=== PATIENT | female | born 1960 | race Caucasian/White ===

== ENCOUNTER 2019-10-20 17:19 | Inpatient (IN) | payer SELFPAY ==
[~2019-10-20] VITALS: Ht 160 cm; Wt 114.6 kg
[~2019-10-20 17:19] MED LIST: FERR-36 PO
[2019-10-20 19:39] LABS: BASO # 0.1 x10^3/uL (0.0-0.2); BASO % 1 % (0-3); EOS # 0.4 x10^3/uL (0.0-0.7); EOS % 4 % (0-3); HEMATOCRIT 38.6 % (36.0-47.0); HEMOGLOBIN 12.5 g/dL (12.0-15.5); LYMPH # 1.3 x10^3/uL (1.0-4.8); LYMPH % 12 % (24-48); MEAN CORPUSCULAR HEMOGLOBIN 25 pg (25-35); MEAN CORPUSCULAR HGB CONC 32 g/dL (31-37); MEAN CORPUSCULAR VOLUME 78 fL (79-100); MONO # 0.6 x10^3/uL (0.0-1.1); MONO % 6 % (0-9); NEUT # 8.4 x10^3/uL (1.8-7.7); NEUT % 78 % (31-73); PLATELET COUNT 283 x10^3/uL (140-400); RED BLOOD COUNT 4.93 x10^6/uL (3.50-5.40); RED CELL DISTRIBUTION WIDTH 17.1 % (11.5-14.5); WHITE BLOOD COUNT 10.8 x10^3/uL (4.0-11.0)
[2019-10-20 19:48] LABS: PROTHROMBIN TIME PATIENT 12.7 SEC (11.7-14.0)
--- NOTE | 2019-10-20 20:05 | RAD ---
CT HEAD WO CONTRAST History:Altered mental status Comparison: None. Technique: Noncontrast CT imaging was performed of the head. Exposure: One or more of the following individualized dose reduction techniques were utilized for this examination: 1. Automated exposure control 2. Adjustment of the mA and/or kV according to patient size 3. Use of iterative reconstruction technique. Findings: No acute extra-axial or parenchymal hemorrhage is identified. There is no significant intra-axial mass effect, midline shift, or extra-axial fluid collection. The boone-white differentiation of the major vascular territories is preserved. The ventricles, sulci, and cisterns are within normal limits in size and configuration. The mastoid air cells and the visualized paranasal sinuses are aerated. No acute calvarial abnormality is identified. Impression: 1. No acute intracranial abnormality is identified. Electronically signed by: Ko Messer MD (10/20/2019 8:03 PM) [facility]
[2019-10-20 20:22] LABS: CALCIUM 9.1 mg/dL (8.5-10.1); GFR 56.7; POTASSIUM 3.7 mmol/L (3.5-5.1)
--- NOTE | 2019-10-20 20:27 | PHYS DOC ---
Past Medical History Past Medical History: Other Additional Past Medical Histor: leg blood clots, blood thinners, vag bleeding Past Surgical History: No Surgical History Smoking Status: Never Smoker Alcohol Use: None General Adult EDM: Chief Complaint: HEAT EXPOSURE HPI: HPI: Patient is a 59 year old female presents to the ED with a chief complaint of altered mental status. Patient's family states that patient was out mowing the lawn today around 11 AM. And afterwards came home, she could not speak. Patient states that she was having difficulty making words. Family had arrived down what was going on and she was able to write down. Since then family states that patient is having difficulty finding the right words to say. No other deficits seen. Patient denies headache, chest pain, fever, chills, nausea, vomiting, shortness of breath. Review of Systems: Review of Systems: Constitutional: Denies fever or chills. [] Eyes: Denies change in visual acuity. [] HENT: Denies nasal congestion or sore throat. [] Respiratory: Denies cough or shortness of breath. [] Cardiovascular: Denies chest pain or edema. [] GI: Denies abdominal pain, nausea, vomiting, bloody stools or diarrhea. [] : Denies dysuria. [] Neurologic: Patient complains of difficulty in speaking and finding the right words Heart Score: Risk Factors: Risk Factors: DM, Current or recent (<one month) smoker, HTN, HLP, family history of CAD, obesity. Risk Scores: Score 0 - 3: 2.5% MACE over next 6 weeks - Discharge Home Score 4 - 6: 20.3% MACE over next 6 weeks - Admit for Clinical Observation Score 7 - 10: 72.7% MACE over next 6 weeks - Early Invasive Strategies Allergies: Allergies: Allergies Coded Allergies Type Severity Reaction Last Updated Verified No Known Drug Allergies 08/12/19 No Physical Exam: PE: Constitutional: Well developed, well nourished, no acute distress, non-toxic appearance. [] HENT: Normocephalic, atraumatic Eyes: EOMI Neck: Normal range of motion, Supple Cardiovascular:Heart rate regular rhythm Lungs & Thorax: Bilateral breath sounds clear to auscultation [] Abdomen: Bowel sounds normal, soft, no tenderness Extremities: No tenderness, ROM intact Neurologic: Alert and oriented X 3, no focal neuro deficits on exam Current Patient Data: Labs: Laboratory Tests Test 10/20/19 17:54 10/20/19 19:21 10/20/19 20:05 Glucose (Fingerstick) 85 mg/dL (70-99) White Blood Count 10.8 x10^3/uL (4.0-11.0) Red Blood Count 4.93 x10^6/uL (3.50-5.40) Hemoglobin 12.5 g/dL (12.0-15.5) Hematocrit 38.6 % (36.0-47.0) Mean Corpuscular Volume 78 fL (79-100) L Mean Corpuscular Hemoglobin 25 pg (25-35) Mean Corpuscular Hemoglobin Concent 32 g/dL (31-37) Red Cell Distribution Width 17.1 % (11.5-14.5) H Platelet Count 283 x10^3/uL (140-400) Neutrophils (%) (Auto) 78 % (31-73) H Lymphocytes (%) (Auto) 12 % (24-48) L Monocytes (%) (Auto) 6 % (0-9) Eosinophils (%) (Auto) 4 % (0-3) H Basophils (%) (Auto) 1 % (0-3) Neutrophils # (Auto) 8.4 x10^3/uL (1.8-7.7) H Lymphocytes # (Auto) 1.3 x10^3/uL (1.0-4.8) Monocytes # (Auto) 0.6 x10^3/uL (0.0-1.1) Eosinophils # (Auto) 0.4 x10^3/uL (0.0-0.7) Basophils # (Auto) 0.1 x10^3/uL (0.0-0.2) Prothrombin Time 12.7 SEC (11.7-14.0) Prothrombin Time INR 1.0 (0.8-1.1) Lactic Acid Level 1.2 mmol/L (0.4-2.0) Sodium Level 139 mmol/L (136-145) Potassium Level 3.7 mmol/L (3.5-5.1) Chloride Level 103 mmol/L (98-107) Carbon Dioxide Level 26 mmol/L (21-32) Anion Gap 10 (6-14) Blood Urea Nitrogen 17 mg/dL (7-20) Creatinine 1.0 mg/dL (0.6-1.0) Estimated GFR (Cockcroft-Gault) 56.7 BUN/Creatinine Ratio 17 (6-20) Glucose Level 94 mg/dL (70-99) Calcium Level 9.1 mg/dL (8.5-10.1) Magnesium Level Pending Total Bilirubin Pending Aspartate Amino Transferase (AST) Pending Alanine Aminotransferase (ALT) Pending Alkaline Phosphatase Pending Ammonia < 10 mcmol/L (11-34) L Creatine Kinase Pending Total Protein Pending Albumin Pending Albumin/Globulin Ratio Pending Laboratory Tests 10/20/19 19:21 Laboratory Tests 10/20/19 20:05 Vital Signs: Vital Signs Date Time Temp Pulse Resp B/P (MAP) Pulse Ox O2 Delivery O2 Flow Rate FiO2 10/20/19 19:32 98.7 82 16 206/83 (124) 98 Room Air 98.7 EKG: EKG: [EKG interpretation: 23: 14 on 10/20/2019 HR: 78 Sinus rhythm Regular intervals Normal axis Nonspecific ST changes ] Radiology/Procedures: Radiology/Procedures: [] Impression: CT HEAD Findings: No acute extra-axial or parenchymal hemorrhage is identified. There is no significant intra-axial mass effect, midline shift, or extra-axial fluid collection. The boone-white differentiation of the major vascular territories is preserved. The ventricles, sulci, and cisterns are within normal limits in size and configuration. The mastoid air cells and the visualized paranasal sinuses are aerated. No acute calvarial abnormality is identified. Impression: 1. No acute intracranial abnormality is identified. Course & Med Decision Making: Course & Med Decision Making Pertinent Labs and Imaging studies reviewed. (See chart for details) Labs are within normal limits. CT head does not show any acute intracranial process. I discussed results and plan of care with patient. Patient will most likely benefit from monitoring overnight and MRI tomorrow. I discussed case with Dr. Rodriguez who accepts admission. Christine Disclaimer: Christine Disclaimer: This electronic medical record was generated, in whole or in part, using a voice recognition dictation system. Departure Departure Impression: Primary Impression: Altered mental state Additional Impression: Dysarthria Disposition: ADMITTED INPATIENT Admitting Physician: JACOBY Condition: IMPROVED Referrals: JANEY FRITZ (PCP) Justicifation of Admission Dx: Justifications for Admission: Justification of Admission Dx: Yes Altered Mental Status: Altered Mental Status NORRIS IZQUIERDO DO Oct 20, 2019 20:27
[2019-10-20 20:29] LABS: ALBUMIN 3.8 g/dL (3.4-5.0); ALBUMIN/GLOBULIN RATIO 1.1 (1.0-1.7); TOTAL BILIRUBIN 0.2 mg/dL (0.2-1.0); TOTAL PROTEIN 7.3 g/dL (6.4-8.2)
[2019-10-20 23:20] LABS: BILIRUBIN,URINE NEGATIVE (NEG); CLARITY,URINE CLOUDY; COLOR,URINE YELLOW; NITRITE,URINE NEGATIVE (NEG); PROTEIN,URINE 100 mg/dL (NEG-TRACE); UROBILINOGEN,URINE 0.2 mg/dL (0.2 mg/dL)
[2019-10-20 23:25] VITALS: BP 158/74
--- NOTE | 2019-10-20 23:25 | NUR ---
The patient, JOSSUE YOU, 59 y/o, F admitted by CIRO BRANDT MD, was given written information regarding hospital policies, unit procedures and contact persons. Patient was transferred to the room via wheelchair assisted by ED staff member. Valuables were checked and noted. Home medications have been sent down to pharmacy. Patient is currently sitting in the bed. patient denies any needs at this time.
[2019-10-20 23:27] LABS: AMORPHOUS SEDIMENT,UR PRESENT /HPF; BACTERIA,URINE MODERATE /HPF (0-FEW); RBC,URINE TNTC /HPF (0-2); WBC,URINE TNTC /HPF (0-4)
[2019-10-20 23:28] LABS: SQUAMOUS EPITHELIAL CELL,UR MOD /LPF
[2019-10-20] MEDS ORDERED: ACETAMINOPHEN 325 MG TABLET. PO PRN (23:30)
[2019-10-20] MEDS ORDERED: ACETAMINOPHEN 650 MG SUPP.RECT. PR PRN (23:30)
[2019-10-20] MEDS ORDERED: MAGNESIUM HYDROXIDE 2,400 MG/30 ML ORAL.SUSP. PO PRN (23:30)
[2019-10-20] MEDS ORDERED: LABETALOL 20 MG/4 ML DISP.SYRIN. IVP PRN (23:30)
[2019-10-20] MEDS ORDERED: ONDANSETRON PF 4 MG/2 ML VIAL. IV PRN (23:30)
[2019-10-20] MEDS ORDERED: ASPIRIN RECTAL 300 MG SUPP. PR PRN (23:30)
[2019-10-21] MEDS ORDERED: MELA PO (00:04)
[2019-10-21] MEDS ORDERED: BUSP10TA PO (00:04)
[2019-10-21] MEDS ORDERED: APIX2.5T PO (00:04)
[2019-10-21 03:00] VITALS: BP 151/72
[2019-10-21 07:29] LABS: CHOLESTEROL/HDL RATIO 6.4
[2019-10-21 07:54] VITALS: BP 168/67
[2019-10-21] MEDS: ASPIRIN ENTERIC COATED 325 MG TABLET.DR. PO SCH (08:00)
[2019-10-21] MEDS ORDERED: ACETAMINOPHEN 325 MG TABLET. PO PRN (08:45)
[2019-10-21] MEDS ORDERED: ACETAMINOPHEN 650 MG SUPP.RECT. PR PRN (08:45)
--- NOTE | 2019-10-21 08:52 | EKG ---
[facility] [address] [place] [address] Test Date: 2019-10-20 Test Time: 23:14:17 Pat Name: JOSSUE YOU Department: Room: 2 1 Gender: F Photographic Printer: : [id number] Requested By: NORRIS IZQUIERDO Order Number: [id number] Reading MD: Measurements Intervals [place] Rate: 78 P: 42 [place]: 122 QRS: 21 QRSD: 78 T: -72 QT: 358 QTc: 411 Interpretive Statements SINUS RHYTHM ST & T ABNORMALITY, CONSIDER HIGH LATERAL ISCHEMIA OR LEFT VENTRICULAR STRAIN T ABNORMALITY IN LATERAL LEADS INFEROLATERAL LEADS ABNORMAL ECG RI6.02 No previous ECG available for comparison
[2019-10-21] MEDS: ATORVASTATIN CALCIUM 40 MG TABLET. PO SCH (09:00)
[2019-10-21] MEDS: FAMOTIDINE 20 MG TABLET. PO SCH ×2 (09:00→21:20)
[2019-10-21] MEDS: HEPARIN for SUB-Q USE 5,000 UNIT/ML VIAL. SQ SCH ×2 (09:22→21:26)
--- NOTE | 2019-10-21 10:34 | PDOC2 ---
NEUROLOGY CONSULT Date of Admission Date of Admission DATE: 10/21/19 TIME: 10:28 Reason for Consult Reason for Consult: Altered mental status Referring Physician Referring Physician: Dr. Rodriguez PCP: Shirley (?) Source Source: Chart review, Patient History of Present Illness History of Present Illness The patient is a 59-year-old right-handed female who cannot tell me why she is here. According emergency room note, she was out mowing the lawn yesterday in t he heat and then had trouble speaking and thinking of words to say. Patient denies history of stroke, seizure, or head injury. I ask if she's under any stress and she says that her cat and her father 6 months ago. Past Medical History Cardiovascular: Other (Here in July, had deep venous thrombosis, starred on [place], but developed severe vaginal bleeding) Heme/Onc: Anemia NOS Psych: Anxiety, Depression Renal/: Other ( vaginal bleeding, July 2019) Past Surgical History Past Surgical History: No pertinent history Family History Family History: Cancer Social History Social History Single, lives with mother, unemployed, no alcohol, tobacco, street drugs, recent deaths as described above Current Medications Current Medications Current Medications Ondansetron HCl (Zofran) 4 mg PRN Q4HRS PRN IV NAUSEA/VOMITING 1ST CHOICE; Start 10/20/19 at 23:30 Acetaminophen (Tylenol) 650 mg PRN Q4HRS PRN PO TEMP OVER 100.4F OR MILD PAIN; Start 10/20/19 at 23:30 Heparin Sodium (Porcine) (Heparin Sodium) 5,000 unit Q12HR SQ Last administered on 10/21/19at 09:22; Start 10/21/19 at 09:00 Labetalol HCl (Normodyne Iv Push) 10 mg PRN Q10MIN PRN IVP htn; Start 10/20/19 at 23:30 Atorvastatin Calcium (Lipitor) 80 mg DAILY PO ; Start 10/21/19 at 09:00 Acetaminophen (Tylenol Supp) 650 mg PRN Q4HRS PRN LA TEMP > 100.4F; Start 10/20/19 at 23:30 Magnesium Hydroxide (Milk Of Magnesia) 2,400 mg PRN DAILY PRN PO CONSTIPATION; Start 10/20/19 at 23:30 Famotidine (Pepcid) 20 mg BID PO ; Start 10/21/19 at 09:00 Aspirin (Ecotrin) 325 mg DAILYWBKFT PO ; Start 10/21/19 at 08:00 Aspirin (Aspirin Rectal Supp) 300 mg PRN DAILY PRN LA IF UNABLE TO TAKE PO; Start 10/20/19 at 23:30 Acetaminophen (Tylenol) 650 mg PRN Q6HRS PRN PO TEMP > 100.4F; Start 10/21/19 at 08:45 Acetaminophen (Tylenol Supp) 650 mg PRN Q4HRS PRN LA TEMP > 100.4F; Start 10/21/19 at 08:45 Active Scripts Active Reported Midnite Chewable Tablet (Melatonin/Herbal No.233) 1 Each Tb.chw.dsp 1 Each PO HS Buspirone Hcl 10 Mg Tablet 1 Tab PO BID Eliquis (Apixaban) 2.5 Mg Tablet 2.5 Mg PO BID Allergies Allergies: Coded Allergies: No Known Drug Allergies (Unverified , 08/12/19) ROS Review of System Negative for fever, chills, weight loss, shortness of breath, chest pain, indigestion, hematochezia, melena, and dysuria. Full 14-point review of systems is negative. Physical Exam Physical Examination General: Well-developed, well-nourished white female in no acute distress HEENT: Normocephalic andatraumatic.Temporal arteriespulsatile and nontender. Neck: Supple without bruit, no meningismus Musculoskeletal: Stability:see neurologic. Gait exam:see neurologic. Tone:see neurologic.Strength:see neurologic. Neurological: Mental Status:orientation, memory, attention span/concentration, language, fund of knowledge: she can tell me the date and location, hesitant speech, not an organic aphasia. Cranial Nerves:Pupils equal and reactive to light, extraocular movements areintact, visual wells are full to confrontation. Facial sensation is normal. There is no facial asymmetry. Vestibulo-ocular reflex is intact. Palate elevates and tongue protrudes in midline. All other cranial related problems are negative except as mentioned before.Reflexes:2+ and symmetric with flexor plantar responses. Motor:5/5 strength with normal tone and bulk. Coordination:Finger-nose finger and ofhb-zt-bhem testing are normal. Rapid alternating movements and fine finger movements are intact. Gait: not tested. Sensory:Normal pinprick, vibration, light touch, proprioception. Vitals VITALS Vital Signs Date Time Temp Pulse Resp B/P (MAP) Pulse Ox O2 Delivery O2 Flow Rate FiO2 10/21/19 08:30 Room Air 10/21/19 07:54 99.2 76 18 168/67 (100) 96 99.2 Labs Labs Laboratory Tests Test 10/20/19 17:54 10/20/19 19:21 10/20/19 20:05 10/20/19 23:13 Glucose (Fingerstick) 85 mg/dL (70-99) White Blood Count 10.8 x10^3/uL (4.0-11.0) Red Blood Count 4.93 x10^6/uL (3.50-5.40) Hemoglobin 12.5 g/dL (12.0-15.5) Hematocrit 38.6 % (36.0-47.0) Mean Corpuscular Volume 78 fL (79-100) Mean Corpuscular Hemoglobin 25 pg (25-35) Mean Corpuscular Hemoglobin Concent 32 g/dL (31-37) Red Cell Distribution Width 17.1 % (11.5-14.5) Platelet Count 283 x10^3/uL (140-400) Neutrophils (%) (Auto) 78 % (31-73) Lymphocytes (%) (Auto) 12 % (24-48) Monocytes (%) (Auto) 6 % (0-9) Eosinophils (%) (Auto) 4 % (0-3) Basophils (%) (Auto) 1 % (0-3) Neutrophils # (Auto) 8.4 x10^3/uL (1.8-7.7) Lymphocytes # (Auto) 1.3 x10^3/uL (1.0-4.8) Monocytes # (Auto) 0.6 x10^3/uL (0.0-1.1) Eosinophils # (Auto) 0.4 x10^3/uL (0.0-0.7) Basophils # (Auto) 0.1 x10^3/uL (0.0-0.2) Prothrombin Time 12.7 SEC (11.7-14.0) Prothromb Time International Ratio 1.0 (0.8-1.1) Lactic Acid Level 1.2 mmol/L (0.4-2.0) Sodium Level 139 mmol/L (136-145) Potassium Level 3.7 mmol/L (3.5-5.1) Chloride Level 103 mmol/L (98-107) Carbon Dioxide Level 26 mmol/L (21-32) Anion Gap 10 (6-14) Blood Urea Nitrogen 17 mg/dL (7-20) Creatinine 1.0 mg/dL (0.6-1.0) Estimated GFR (Cockcroft-Gault) 56.7 BUN/Creatinine Ratio 17 (6-20) Glucose Level 94 mg/dL (70-99) Calcium Level 9.1 mg/dL (8.5-10.1) Magnesium Level 2.0 mg/dL (1.8-2.4) Total Bilirubin 0.2 mg/dL (0.2-1.0) Aspartate Amino Transf (AST/SGOT) 17 U/L (15-37) Alanine Aminotransferase (ALT/SGPT) 16 U/L (14-59) Alkaline Phosphatase 102 U/L (46-116) Ammonia < 10 mcmol/L (11-34) Creatine Kinase 52 U/L (26-192) Total Protein 7.3 g/dL (6.4-8.2) Albumin 3.8 g/dL (3.4-5.0) Albumin/Globulin Ratio 1.1 (1.0-1.7) Thyroid Stimulating Hormone (TSH) 3.907 uIU/mL (0.358-3.74) Urine Collection Type Unknown Urine Color Yellow Urine Clarity Cloudy Urine pH 6.0 (<5.0-8.0) Urine Specific Forrest 1.025 (1.000-1.030) Urine Protein 100 mg/dL (NEG-TRACE) Urine Glucose (UA) Negative mg/dL (NEG) Urine Ketones (Stick) Negative mg/dL (NEG) Urine Blood Large (NEG) Urine Nitrite Negative (NEG) Urine Bilirubin Negative (NEG) Urine Urobilinogen Dipstick 0.2 mg/dL (0.2 mg/dL) Urine Leukocyte Esterase Large (NEG) Urine RBC Tntc /HPF (0-2) Urine WBC Tntc /HPF (0-4) Urine Squamous Epithelial Cells Mod /LPF Urine Amorphous Sediment Present /HPF Urine Bacteria Moderate /HPF (0-FEW) Urine Mucus Mod /LPF Test 10/21/19 06:15 Triglycerides Level 178 mg/dL (0-150) Cholesterol Level 218 mg/dL (0-200) LDL Cholesterol, Calculated 148 mg/dL (0-100) VLDL Cholesterol, Calculated 36 mg/dL (0-40) Non-HDL Cholesterol Calculated 184 mg/dL (0-129) HDL Cholesterol 34 mg/dL (40-60) Cholesterol/HDL Ratio 6.4 Laboratory Tests Test 10/20/19 17:54 10/20/19 19:21 10/20/19 20:05 10/20/19 23:13 Glucose (Fingerstick) 85 mg/dL (70-99) White Blood Count 10.8 x10^3/uL (4.0-11.0) Red Blood Count 4.93 x10^6/uL (3.50-5.40) Hemoglobin 12.5 g/dL (12.0-15.5) Hematocrit 38.6 % (36.0-47.0) Mean Corpuscular Volume 78 fL (79-100) Mean Corpuscular Hemoglobin 25 pg (25-35) Mean Corpuscular Hemoglobin Concent 32 g/dL (31-37) Red Cell Distribution Width 17.1 % (11.5-14.5) Platelet Count 283 x10^3/uL (140-400) Neutrophils (%) (Auto) 78 % (31-73) Lymphocytes (%) (Auto) 12 % (24-48) Monocytes (%) (Auto) 6 % (0-9) Eosinophils (%) (Auto) 4 % (0-3) Basophils (%) (Auto) 1 % (0-3) Neutrophils # (Auto) 8.4 x10^3/uL (1.8-7.7) Lymphocytes # (Auto) 1.3 x10^3/uL (1.0-4.8) Monocytes # (Auto) 0.6 x10^3/uL (0.0-1.1) Eosinophils # (Auto) 0.4 x10^3/uL (0.0-0.7) Basophils # (Auto) 0.1 x10^3/uL (0.0-0.2) Prothrombin Time 12.7 SEC (11.7-14.0) Prothromb Time International Ratio 1.0 (0.8-1.1) Lactic Acid Level 1.2 mmol/L (0.4-2.0) Sodium Level 139 mmol/L (136-145) Potassium Level 3.7 mmol/L (3.5-5.1) Chloride Level 103 mmol/L (98-107) Carbon Dioxide Level 26 mmol/L (21-32) Anion Gap 10 (6-14) Blood Urea Nitrogen 17 mg/dL (7-20) Creatinine 1.0 mg/dL (0.6-1.0) Estimated GFR (Cockcroft-Gault) 56.7 BUN/Creatinine Ratio 17 (6-20) Glucose Level 94 mg/dL (70-99) Calcium Level 9.1 mg/dL (8.5-10.1) Magnesium Level 2.0 mg/dL (1.8-2.4) Total Bilirubin 0.2 mg/dL (0.2-1.0) Aspartate Amino Transf (AST/SGOT) 17 U/L (15-37) Alanine Aminotransferase (ALT/SGPT) 16 U/L (14-59) Alkaline Phosphatase 102 U/L (46-116) Ammonia < 10 mcmol/L (11-34) Creatine Kinase 52 U/L (26-192) Total Protein 7.3 g/dL (6.4-8.2) Albumin 3.8 g/dL (3.4-5.0) Albumin/Globulin Ratio 1.1 (1.0-1.7) Thyroid Stimulating Hormone (TSH) 3.907 uIU/mL (0.358-3.74) Urine Collection Type Unknown Urine Color Yellow Urine Clarity Cloudy Urine pH 6.0 (<5.0-8.0) Urine Specific Forrest 1.025 (1.000-1.030) Urine Protein 100 mg/dL (NEG-TRACE) Urine Glucose (UA) Negative mg/dL (NEG) Urine Ketones (Stick) Negative mg/dL (NEG) Urine Blood Large (NEG) Urine Nitrite Negative (NEG) Urine Bilirubin Negative (NEG) Urine Urobilinogen Dipstick 0.2 mg/dL (0.2 mg/dL) Urine Leukocyte Esterase Large (NEG) Urine RBC Tntc /HPF (0-2) Urine WBC Tntc /HPF (0-4) Urine Squamous Epithelial Cells Mod /LPF Urine Amorphous Sediment Present /HPF Urine Bacteria Moderate /HPF (0-FEW) Urine Mucus Mod /LPF Test 7/7/20 06:15 Triglycerides Level 178 mg/dL (0-150) Cholesterol Level 218 mg/dL (0-200) LDL Cholesterol, Calculated 148 mg/dL (0-100) VLDL Cholesterol, Calculated 36 mg/dL (0-40) Non-HDL Cholesterol Calculated 184 mg/dL (0-129) HDL Cholesterol 34 mg/dL (40-60) Cholesterol/HDL Ratio 6.[address] HEAD WO CONTRAST History:Altered mental status Comparison: None. Technique: Noncontrast CT imaging was performed of the head. Exposure: One or more of the following individualized dose reduction techniques were utilized for this examination: 1. Automated exposure control 2. Adjustment of the mA and/or kV according to patient size 3. Use of iterative reconstruction technique. Findings: No acute extra-axial or parenchymal hemorrhage is identified. There is no significant intra-axial mass effect, midline shift, or extra-axial fluid collection. The boone-white differentiation of the major vascular territories is preserved. The ventricles, sulci, and cisterns are within normal limits in size and configuration. The mastoid air cells and the visualized paranasal sinuses are aerated. No acute calvarial abnormality is identified. Impression: 1. No acute intracranial abnormality is identified. Assessment/Plan Assessment/Plan Impression: Stroke is possible, but I believe this is a conversion reaction related to the recent deaths. She has pre-existing psychiatric disease. Recommendations: MRI of the brain, but I would suspend further stroke pathway if MRI is negative Psychiatry consultation Rehabilitation modalities Aspirin Thank you for letting me help the patient's care. CARRIE TO MD Oct 21, 2019 10:34
--- NOTE | 2019-10-21 10:36 | RAD ---
BRAIN W/O CONTRAST History:Reason: weakness, aphasia, CALL REPORT TO [facility] [phone] / [facility]. Instructions: / History: Technique: Multiplanar, multi sequential MR imaging was performed of the brain without contrast. Comparison: October 20, 2019 Findings: Acute left frontal and insular infarct. Additional small left frontal and parietal cortical infarcts. Punctate acute right posterior parietal cortical infarct (series 4 image 15). No intracranial hemorrhage. No mass effect. No hydrocephalus. Mild additional foci of FLAIR hyperintensities within the hemispheric white matter, may relate to sequelae of chronic microvascular ischemia or prior insult. Partially empty sella, often incidental. Imaged orbits are unremarkable. Imaged paranasal sinuses and mastoid air cells are clear. Impression: 1. Acute left frontal/insular infarct. 2. Additional small acute left frontoparietal and right parietal cortical infarcts. Findings raise concern for embolic etiology. FOR INTERNAL CODING PURPOSES Critical result: Findings discussed with patient's nursing team at 10/21/2019 10:25 AM. RESULT CODE: (C) Electronically signed by: Michael Bowen DO (10/21/2019 10:33 AM) [id number]
[2019-10-21 11:24] VITALS: BP 151/71
[2019-10-21] MEDS ORDERED: IOHEXOL 300 MG/ML 100ML VIAL. IV ONE (11:30)
--- NOTE | 2019-10-21 12:01 | HP ---
ADMIT DATE: 10/20/2019 CHIEF COMPLAINT: Mental status change. HISTORY OF PRESENT ILLNESS: The patient is a pleasant 59-year-old female who presents to the ER with mental status change. She was mowing the lawn at 11 o'clock yesterday and then was not speaking well. The family states that she was not writing things on paper well either and also could not get her words right. I discussed the case with ER physician. We admitted the patient with consultation to Dr. Buitrago. There is an MRI that was done this morning, it is confirming a small stroke. The patient is currently being examined on the medical floor. PAST MEDICAL HISTORY: Anxiety, depression, DVT. ALLERGIES: None. FAMILY HISTORY: Diabetes. SOCIAL HISTORY: She does not drink, smoke or take drugs. MEDICATIONS: Reviewed, please refer to the MRAD. REVIEW OF SYSTEMS: GENERAL: No history of weight change, weakness or fevers. SKIN: No bruising, hair changes or rashes. EYES: No blurred, double or loss of vision. NOSE AND THROAT: No history of nosebleeds, hoarseness or sore throat. HEART: No history of palpitations, chest pain or shortness of breath on exertion. LUNGS: Denies cough, hemoptysis, wheezing or shortness of breath. GASTROINTESTINAL: Denies changes in appetite, nausea, vomiting, diarrhea or constipation. GENITOURINARY: No history of frequency, urgency, hesitancy or nocturia. NEUROLOGIC: Denies history of numbness, tingling, tremor or weakness. PSYCHIATRIC: No history of panic, anxiety or depression. ENDOCRINE: No history of heat or cold intolerance, polyuria or polydipsia. EXTREMITIES: Denies muscle weakness, joint pain, pain on walking or stiffness. PHYSICAL EXAMINATION: VITALS: Within normal limits and are stable. GENERAL: No apparent distress. Alert and oriented. HEENT: Normal cephalic atraumatic, external auditory canals are patent EYES: Extraocular muscles are intact, pupils are equally round and reactive to light and accommodation MUSCULOSKELETAL: Well developed, well nourished, good range of motion ENDOCRINE: No thyromegaly was palpated LYMPHATICS: No cervical chain or axillary nodes were noted HEMATOPOIETIC: No bruising NECK: Supple, no JVD, no thyromegaly was noted. LUNGS: Clear to auscultation in all lung wells without rhonchi or wheezing. HEART: RRR, S1, S2 present. Peripheral pulses intact, no obvious murmurs were noted. ABDOMEN: Soft, nontender. Positive bowel sounds no organomegaly, normal bowel sounds. EXTREMITIES: Without any cyanosis, clubbing, or edema. Pedal pulses intact, Homans sign is negative. NEUROLOGIC: She has some hesitant speech. There is no facial asymmetry. She has 5/5 strength. PSYCHIATRIC: Normal affect, normal mood. Stable. SKIN: No ulcerations or rashes, good skin turgor, no jaundice. VASCULAR: Good capillary refill, neurovascular bundle appears to be intact. LABORATORY DATA: Hematology is normal. Electrolytes are normal. ASSESSMENT AND PLAN: Resolving stroke symptoms, suspect this could be psychosomatic. For now, we are doing a stroke protocol, home meds, DVT prophylaxis. Full code. Await further consultation with Dr. Buitrago. DEEPALI DIAZ DO DR: ANTWON/olivia JOB#: [id number] / [id number]
--- NOTE | 2019-10-21 13:47 | CARD ---
MR#: [id number] Date of Study: 10/21/2019 Ordering Physician: CARRIE TO, Referring Physician: CARRIE TO, Tech: Marleny Ness APPROVED REPORT EXAM: Two-dimensional echocardiogram with contrast. Other Information Quality : AverageHR: 78bpm Technically limited study due to body habitus. INDICATION CVA/TIA 2D DIMENSIONS Left Atrium(2D)3.1 (1.6-4.0cm)IVSd1.2 (0.7-1.1cm) Aortic Root(2D)2.9 (2.0-3.7cm)LVDd5.3 (3.9-5.9cm) LVOT Diameter1.9 (1.8-2.4cm)PWd0.9 (0.7-1.1cm) LVDs2.8 (2.5-4.0cm)FS (%) 48.0 % SV108.5 mlLVEF(%)79.0 (>50%) Aortic Valve AoV Peak Florencio.225.7cm/sAoV VTI55.0cm AO Peak GR.20.4mmHgLVOT Peak Florencio.189.9cm/s AO Mean GR.12mmHgAVA (VMAX)2.46cm2 AI P 1/2 [id number] Mitral Valve MV E Odxyyxsq948.2cm/sMV E Peak Gr.5mmHg MV DECEL QYLE178xoXK A Trgrxxhw801.5cm/s MV E Mean Gr.3mmHgE/A Ratio1.1 Tricuspid Valve TR P. Yxydqnvl115nx/sRAP DNPLAXSA7lnLb TR Peak Gr.32nbBzZAKS50dvWh LEFT VENTRICLE The left ventricle is normal size. There is borderline to mild concentric left ventricular hypertroph y. The left ventricular systolic function is normal and the ejection fraction is within normal range. The Ejection Fraction is 55-60%. There is normal LV segmental wall motion. Transmitral Doppler flow pattern is Grade II-pseudonormal filling dynamics. RIGHT VENTRICLE The right ventricle is normal size. There is normal right ventricular wall thickness. The right ventr icular systolic function is normal. ATRIA The left atrium size is normal. The right atrium size is normal. The interatrial septum is intact wit h no evidence for an atrial septal defect or patent foramen ovale as noted on 2-D or Doppler imaging. Agitated saline study is negative. AORTIC VALVE The aortic valve is thickened but opens well. Doppler and Color Flow revealed trace to mild aortic re gurgitation. Calculated aortic valve area is 2.5 cm2 with maximum pressure gradient of 21 mmHg and me an pressure gradient of 11 mmHg. MITRAL VALVE The mitral valve is normal in structure and function. There is no evidence of mitral valve prolapse. There is no mitral valve stenosis. Doppler and Color-flow revealed trace mitral regurgitation. TRICUSPID VALVE The tricuspid valve is normal in structure and function. Doppler and Color Flow revealed trace tricus pid regurgitation with an estimated PAP of 28 mmHg. There is no tricuspid valve stenosis. PULMONIC VALVE The pulmonic valve is not well visualized. Doppler and Color Flow revealed no pulmonic valvular regur gitation. GREAT VESSELS The aortic root is normal in size. The ascending aorta is normal in size. The IVC is normal in size a nd collapses >50% with inspiration. PERICARDIAL EFFUSION There is no evidence of significant pericardial effusion. Critical Notification Critical Value: No <Conclusion> The left ventricular systolic function is normal and the ejection fraction is within normal range. Th e Ejection Fraction is 55-60%. There is normal LV segmental wall motion. The interatrial septum is intact with no evidence for an atrial septal defect or patent foramen ovale as noted on 2-D or Doppler imaging. Agitated saline study is negative. Doppler and Color Flow revealed trace to mild aortic regurgitation. Signed by : Frederick Alcala, Electronically Approved : 10/21/2019 13:47:36
--- NOTE | 2019-10-21 14:23 | NUR ---
SW following. Reviewed chart and spoke with RN. Pt from home. Pt on room air and oral medications. Pt to have MRI today per AMS. SW awaiting PT/OT evaluation. Pt is being followed by [facility] per self pay status.
--- NOTE | 2019-10-21 14:35 | NUR ---
This RN provided pt with handouts in regards to stroke education, stroke prevention, cholesterol testing, and a low fat/cholesterol diet. Education provided was discussed in length with pt and her mom at bedside. Additional questions and concerns were discussed with pt and mother as well. Pt's sister also present for teaching of cholesterol tests and diet.
--- NOTE | 2019-10-21 14:51 | RAD ---
CT ANGIOGRAPHY HEAD AND NECK History:Reason: mutliple strokes / Spl. Instructions: IV OMNI 300 60 MLS / History: Technique: After bolus of intravenous contrast, volumetric CT data acquisition was acquired of the head and neck. Multiplanar reconstruction images to include MIP and 3-D reconstruction images are submitted. Exposure: One or more of the following individualized dose reduction techniques were utilized for this examination: 1. Automated exposure control 2. Adjustment of the mA and/or kV according to patient size 3. Use of iterative reconstruction technique. Comparison: MRI October 21, 2019 Any determination of stenosis is based on NASCET criteria. Head CTA: Significantly degraded evaluation due to contrast bolus timing. No large proximal occlusion. Partially empty sella. Infarct better characterize on recently performed MRI. CT angiogram neck: Aortic arch: Conventional arch anatomy. Common carotid arteries: No stenosis, occlusion or dissection. Internal carotid arteries: Degraded evaluation of the distal internal carotid arteries due to contrast bolus timing. External carotid arteries: Patent Vertebral arteries: No stenosis, occlusion or dissection. No dural venous sinus stenosis or thrombosis. Imaged lung apices are unremarkable. Right thyroid nodule measures 0.8 cm. Bones: Multilevel cervical spondylosis. Impression: 1. Significantly degraded intracranial arterial evaluation due to contrast bolus timing. Recommend repeat CT angiogram or MRA to further evaluate. 2. No arterial stenosis or occlusion within the neck although degraded evaluation of the distal internal carotid arteries due to contrast bolus timing. Electronically signed by: Michael Bowen DO (10/21/2019 2:48 PM) [id number]
[2019-10-21 15:10] VITALS: BP 151/70
[2019-10-21 19:57] VITALS: BP 180/74
--- NOTE | 2019-10-21 20:27 | PDOC1 ---
History & Psych Evaluation Date of Admission: Date of Admission DATE: 10/21/19 TIME: 20:15 Source: Source: Caregiver, Chart review, Patient Identification: Identification She is a 59-year-old female admitted with weakness found to have stroke. Chief Complaint: Chief Complaint Initially suspected of conversion reaction, however found to have CVA History of Present Illness: HPI: She is a 59-year-old female with history of depression and anxiety admitted with neurological deficit including dysarthria and inability to write appropriately. She was mowing the lawn and found to have spontaneous neurological deficit. MRI is consistent with CVA of acute onset. She has expressive aphasia, difficult for her to express her answer. However she can understand questions asked by the screen writer. History of depression and anxiety. Denies suicidal or homicidal thoughts. Past Psychiatric History: History of depression and anxiety. History of psychiatric hospitalization is not known. Past Medical History: Please see medical chart for details. Family History: Family history of psychiatric illness is not known. Social History: Social History: According to the chart not , lives with her mother. No history of illicit substance use or alcohol abuse. Current Medications: Current Medications Current Medications Medications (Trade) Dose Ordered Sig/Willow Start Time Stop Time Status Last Admin Dose Admin Acetaminophen (Tylenol Supp) 650 mg PRN Q4HRS PRN 10/21/19 08:45 Acetaminophen (Tylenol) 650 mg PRN Q6HRS PRN 10/21/19 08:45 Aspirin (Aspirin Rectal Supp) 300 mg PRN DAILY PRN 10/20/19 23:30 Aspirin (Ecotrin) 325 mg DAILYWBKFT 10/21/19 08:00 Atorvastatin Calcium (Lipitor) 80 mg DAILY 10/21/19 09:00 Famotidine (Pepcid) 20 mg BID 10/21/19 09:00 Heparin Sodium (Porcine) (Heparin Sodium) 5,000 unit Q12HR 10/21/19 09:00 10/21/19 09:22 5,000 UNIT Iohexol (Omnipaque 300 Mg/ml) 60 ml 1X ONCE 10/21/19 11:30 10/21/19 11:31 DC 10/21/19 11:37 60 ML Labetalol HCl (Normodyne Iv Push) 10 mg PRN Q10MIN PRN 10/20/19 23:30 Magnesium Hydroxide (Milk Of Magnesia) 2,400 mg PRN DAILY PRN 10/20/19 23:30 Ondansetron HCl (Zofran) 4 mg PRN Q4HRS PRN 10/20/19 23:30 Allergies: Allergies: Coded Allergies: No Known Drug Allergies (Unverified , 08/12/19) Mental Status Examination: Mental Status Examination Pleasant female, tries to interact Appears her stated age Disoriented Denies suicidal or homicidal thoughts. Denies auditory or visual hallucinations. Mood is stable Affect is pleasant Insight is limited Impulse control is limited Attention span and concentration impaired Remote and recent memory impaired ROS: 12 point review of system is otherwise normal except for neurological deficit per neurological exam, expressive aphasia, depression and anxiety. Physical Exam: Refer to Physician's note. GRADES 1 THROUGH 6 TEACHER: No focal deficit MSK: No EPS, TDK, or abnormal involuntary movements Vitals: Vitals Vital Signs Date Time Temp Pulse Resp B/P (MAP) Pulse Ox O2 Delivery O2 Flow Rate FiO2 10/21/19 19:57 98.5 82 16 180/74 (109) 96 Room Air 98.5 Labs: Labs Laboratory Tests Test 10/20/19 17:54 10/20/19 19:21 10/20/19 20:05 10/20/19 23:13 Glucose (Fingerstick) 85 mg/dL (70-99) White Blood Count 10.8 x10^3/uL (4.0-11.0) Red Blood Count 4.93 x10^6/uL (3.50-5.40) Hemoglobin 12.5 g/dL (12.0-15.5) Hematocrit 38.6 % (36.0-47.0) Mean Corpuscular Volume 78 fL (79-100) Mean Corpuscular Hemoglobin 25 pg (25-35) Mean Corpuscular Hemoglobin Concent 32 g/dL (31-37) Red Cell Distribution Width 17.1 % (11.5-14.5) Platelet Count 283 x10^3/uL (140-400) Neutrophils (%) (Auto) 78 % (31-73) Lymphocytes (%) (Auto) 12 % (24-48) Monocytes (%) (Auto) 6 % (0-9) Eosinophils (%) (Auto) 4 % (0-3) Basophils (%) (Auto) 1 % (0-3) Neutrophils # (Auto) 8.4 x10^3/uL (1.8-7.7) Lymphocytes # (Auto) 1.3 x10^3/uL (1.0-4.8) Monocytes # (Auto) 0.6 x10^3/uL (0.0-1.1) Eosinophils # (Auto) 0.4 x10^3/uL (0.0-0.7) Basophils # (Auto) 0.1 x10^3/uL (0.0-0.2) Prothrombin Time 12.7 SEC (11.7-14.0) Prothromb Time International Ratio 1.0 (0.8-1.1) Lactic Acid Level 1.2 mmol/L (0.4-2.0) Sodium Level 139 mmol/L (136-145) Potassium Level 3.7 mmol/L (3.5-5.1) Chloride Level 103 mmol/L (98-107) Carbon Dioxide Level 26 mmol/L (21-32) Anion Gap 10 (6-14) Blood Urea Nitrogen 17 mg/dL (7-20) Creatinine 1.0 mg/dL (0.6-1.0) Estimated GFR (Cockcroft-Gault) 56.7 BUN/Creatinine Ratio 17 (6-20) Glucose Level 94 mg/dL (70-99) Calcium Level 9.1 mg/dL (8.5-10.1) Magnesium Level 2.0 mg/dL (1.8-2.4) Total Bilirubin 0.2 mg/dL (0.2-1.0) Aspartate Amino Transf (AST/SGOT) 17 U/L (15-37) Alanine Aminotransferase (ALT/SGPT) 16 U/L (14-59) Alkaline Phosphatase 102 U/L (46-116) Ammonia < 10 mcmol/L (11-34) Creatine Kinase 52 U/L (26-192) Total Protein 7.3 g/dL (6.4-8.2) Albumin 3.8 g/dL (3.4-5.0) Albumin/Globulin Ratio 1.1 (1.0-1.7) Thyroid Stimulating Hormone (TSH) 3.907 uIU/mL (0.358-3.74) Urine Collection Type Unknown Urine Color Yellow Urine Clarity Cloudy Urine pH 6.0 (<5.0-8.0) Urine Specific [place] 1.025 (1.000-1.030) Urine Protein 100 mg/dL (NEG-TRACE) Urine Glucose (UA) Negative mg/dL (NEG) Urine Ketones (Stick) Negative mg/dL (NEG) Urine Blood Large (NEG) Urine Nitrite Negative (NEG) Urine Bilirubin Negative (NEG) Urine Urobilinogen Dipstick 0.2 mg/dL (0.2 mg/dL) Urine Leukocyte Esterase Large (NEG) Urine RBC Tntc /HPF (0-2) Urine WBC Tntc /HPF (0-4) Urine Squamous Epithelial Cells Mod /LPF Urine Amorphous Sediment Present /HPF Urine Bacteria Moderate /HPF (0-FEW) Urine Mucus Mod /LPF Test 10/21/19 06:15 Triglycerides Level 178 mg/dL (0-150) Cholesterol Level 218 mg/dL (0-200) LDL Cholesterol, Calculated 148 mg/dL (0-100) VLDL Cholesterol, Calculated 36 mg/dL (0-40) Non-HDL Cholesterol Calculated 184 mg/dL (0-129) HDL Cholesterol 34 mg/dL (40-60) Cholesterol/HDL Ratio 6.4 Laboratory Tests Test 10/20/19 23:13 10/21/19 06:15 Urine Collection Type Unknown Urine Color Yellow Urine Clarity Cloudy Urine pH 6.0 (<5.0-8.0) Urine Specific [place] 1.025 (1.000-1.030) Urine Protein 100 mg/dL (NEG-TRACE) Urine Glucose (UA) Negative mg/dL (NEG) Urine Ketones (Stick) Negative mg/dL (NEG) Urine Blood Large (NEG) Urine Nitrite Negative (NEG) Urine Bilirubin Negative (NEG) Urine Urobilinogen Dipstick 0.2 mg/dL (0.2 mg/dL) Urine Leukocyte Esterase Large (NEG) Urine RBC Tntc /HPF (0-2) Urine WBC Tntc /HPF (0-4) Urine Squamous Epithelial Cells Mod /LPF Urine Amorphous Sediment Present /HPF Urine Bacteria Moderate /HPF (0-FEW) Urine Mucus Mod /LPF Triglycerides Level 178 mg/dL (0-150) Cholesterol Level 218 mg/dL (0-200) LDL Cholesterol, Calculated 148 mg/dL (0-100) VLDL Cholesterol, Calculated 36 mg/dL (0-40) Non-HDL Cholesterol Calculated 184 mg/dL (0-129) HDL Cholesterol 34 mg/dL (40-60) Cholesterol/HDL Ratio 6.4 Diagnosis: Diagnosis: Unspecified depression, rule out major depressive disorder Unspecified anxiety rule out generalized anxiety disorder Acute cerebrovascular accident, with neurological deficit Assessment: She is a 59-year-old female with history of depression and anxiety initially suspected of a conversion reaction, found to have CVA of acute onset, revealed on MRI. Please see MRI report. She is struggling with expressive aphasia, at risk of worsening depression and anxiety due to a aphasia. She also at risk of behavioral disturbances due to territory involved. In case of agitation Haldol can be given. Plan: 1-would avoid adding SSRI for depression or anxiety until risk of hemorrhage on acute ischemic stroke is over. 2Haldol 2.5 mg 3 times daily as needed in case of agitation. 3monitor for symptoms, safety, and aggression. 4thank you for involving inpatient care. Will follow along ALISA STEPHEN MD Oct 21, 2019 20:27
[2019-10-21 23:30] VITALS: BP 190/82
[2019-10-22] VITALS (7 sets, daily range): BP systolic 123–183; BP diastolic 65–81
[2019-10-22] MEDS: ASPIRIN ENTERIC COATED 325 MG TABLET.DR. PO SCH (08:12)
[2019-10-22] MEDS: FAMOTIDINE 20 MG TABLET. PO SCH ×2 (08:12→21:45)
[2019-10-22] MEDS: HEPARIN for SUB-Q USE 5,000 UNIT/ML VIAL. SQ SCH ×2 (08:17→21:49)
[2019-10-22] MEDS: ATORVASTATIN CALCIUM 40 MG TABLET. PO SCH (09:55)
--- NOTE | 2019-10-22 10:04 | PDOC2 ---
JONO CLAYTON GEOGRAPHIC INFORMATION SYSTEMS DIRECTOR 10/22/19 1004: CARDIAC CONSULT DATE OF CONSULT Date of Consult DATE: 10/22/19 TIME: 09:40 REASON FOR CONSULT Reason for Consult: embolic CVS, need DMITRI and LINQ REFERRING PHYSICIAN Referring Physician: Dr. Buitrago SOURCE Source: Chart review, Patient HISTORY OF PRESENT ILLNESS HISTORY OF PRESENT ILLNESS This is a 59 yo female who presented secondary to to alerted mental status. Patient was out mowing yesterday afternoon. When she cam in, family noted that she was unable to speak. Continues to have expressive aphasia. Denies any chest pain, palpitations, dizziness, diaphoresis, or nausea/vomiting. Has a history of DVT. Was placed on Xarelto, although this was discontinued due to severe vaginal bleeding and bloody emesis. PAST MEDICAL HISTORY Heme/Onc: Anemia NOS, Other (DVT) Psych: Anxiety, Depression PAST SURGICAL HISTORY Past Surgical History: No pertinent history FAMILY HISTORY Family History: Cancer SOCIAL HISTORY Smoke: No ALCOHOL: none Drugs: None Lives: with Family CURRENT MEDICATIONS CURRENT MEDICATIONS Current Medications Medications (Trade) Dose Ordered Sig/Willow Route PRN Reason Start Time Stop Time Status Last Admin Dose Admin Iohexol (Omnipaque 300 Mg/ml) 60 ml 1X ONCE IV 10/21/19 11:30 10/21/19 11:31 DC 10/21/19 11:37 ALLERGIES ALLERGIES: Coded Allergies: No Known Drug Allergies (Unverified , 08/12/19) ROS Review of System 14 point ROS conducted with pertinent positives noted above in HPI PHYSICAL EXAM General: Alert, Oriented X3, Cooperative HEENT: Atraumatic Lungs: Clear to auscultation, Normal air movement Heart: Regular rate, No murmurs Abdomen: Soft, No tenderness Extremities: No edema, Normal pulses Skin: No significant lesion Neuro: Normal speech, Sensation intact Psych/Mental Status: Mood NL, Other (expressive aphasia ) MUSCULOSKELETAL: No deformity VITALS/I&O VITALS/I&O: Vital Signs Date Time Temp Pulse Resp B/P (MAP) Pulse Ox O2 Delivery O2 Flow Rate FiO2 10/22/19 08:20 Room Air 10/22/19 07:46 97.6 68 17 183/65 (104) 97 97.6 I & O 10/21/19 10/21/19 10/22/19 15:00 23:00 07:00 Intake Total 0 ml 300 ml 200 ml Balance 0 ml 300 ml 200 ml ECHOCARDIOGRAM ECHOCARDIOGRAM <Conclusion> The left ventricular systolic function is normal and the ejection fraction is within normal range. The Ejection Fraction is 55-60%. There is normal LV segmental wall motion. The interatrial septum is intact with no evidence for an atrial septal defect or patent foramen ovale as noted on 2-D or Doppler imaging. Agitated saline study is negative. Doppler and Color Flow revealed trace to mild aortic regurgitation. DATE: 10/21/19 1236 ASSESSMENT/PLAN ASSESSMENT/PLAN 1. New onset expressive aphasia; MRI with acute left frontal/insular infarct. Additionally noted is small acute left frontoparietal and right parietal cortical infarcts, raising concerns for embolic etiology. Echo with preserved LV systolic function; no evidence of ASD/PFO. Bubble study negative. 2. Accelerated hypertension; labile 3. Dyslipidemia 4. Anemia, iron deficiency; stable 5. Recent DVT s/p IVC filter; was on Xarelto, but this was discontinue due to severe vaginal bleeding and blood emesis 6. Morbid obesity Recommendations Secondary prevention; ASA/statin Rehab modalities Given suspicion of embolic stroke, will plan for DMITRI to r/o intracardiac shunting and implantable loop recorder to assess for AFIB as etiology or stroke. R/b/a were discussed with patient and she is agreeable to proceed Follow neuro recs Supportive care FELICE AGUILAR MD 10/22/19 2253: Attending Co-Sign Attending Co-Sign The patient was seen and interviewed as well as examined at the bedside. The chart was reviewed. The case was discussed. Agree with the plan of care. JONO CLAYTON APRN Oct 22, 2019 10:04 FELICE AGUILAR MD Oct 22, 2019 22:53
--- NOTE | 2019-10-22 11:28 | PDOC ---
PROGRESS NOTES Assessment Problems Medical Problems: (1) Altered mental state Status: Acute (2) Dysarthria Status: Acute Acute left frontal/insular infarct. Additional small acute left frontoparietal and right parietal cortical infarcts. Findings raise concern for embolic etiology No conversion reaction related to the recent deaths. She has pre-existing psychiatric disease. Recent DVT, [place] filter placed Plan Needs further workup for embolic stroke with transesophageal echocardiogram and outpatient LINQ recording. Radiologist requests repeat CT angiogram which I will delay until tomorrow because of dye load Rehabilitation modalities Aspirin, unless embolic source found Discussed with family Subjective Speaking a little better, denies pain Objective Vital Signs Date Time Temp Pulse Resp B/P (MAP) Pulse Ox O2 Delivery O2 Flow Rate FiO2 10/22/19 08:20 Room Air 10/22/19 07:46 97.6 68 17 183/65 (104) 97 97.6 Intake and Output 10/22/19 07:00 Intake Total 500 ml Balance 500 ml Intake Oral 500 ml # Voids 4 PHYSICAL EXAM Alert. Oriented to time, place and person, Expressive speech difficulties. PERRL. EOMI. CN: no focal findings. Muscle tone: normal. Muscle strength: 5/5 DTR: 2+ Plantar reflex: flexor Gait: not examined in bed. Sensory exam: no abnormal findings. No cerebellar signs elicited. Review of Relevant I have reviewed the following items gloria (where applicable) has been applied. Labs Laboratory Tests Test 10/20/19 17:54 10/20/19 19:21 10/20/19 20:05 10/20/19 23:13 Glucose (Fingerstick) 85 mg/dL (70-99) White Blood Count 10.8 x10^3/uL (4.0-11.0) Red Blood Count 4.93 x10^6/uL (3.50-5.40) Hemoglobin 12.5 g/dL (12.0-15.5) Hematocrit 38.6 % (36.0-47.0) Mean Corpuscular Volume 78 fL (79-100) Mean Corpuscular Hemoglobin 25 pg (25-35) Mean Corpuscular Hemoglobin Concent 32 g/dL (31-37) Red Cell Distribution Width 17.1 % (11.5-14.5) Platelet Count 283 x10^3/uL (140-400) Neutrophils (%) (Auto) 78 % (31-73) Lymphocytes (%) (Auto) 12 % (24-48) Monocytes (%) (Auto) 6 % (0-9) Eosinophils (%) (Auto) 4 % (0-3) Basophils (%) (Auto) 1 % (0-3) Neutrophils # (Auto) 8.4 x10^3/uL (1.8-7.7) Lymphocytes # (Auto) 1.3 x10^3/uL (1.0-4.8) Monocytes # (Auto) 0.6 x10^3/uL (0.0-1.1) Eosinophils # (Auto) 0.4 x10^3/uL (0.0-0.7) Basophils # (Auto) 0.1 x10^3/uL (0.0-0.2) Prothrombin Time 12.7 SEC (11.7-14.0) Prothromb Time International Ratio 1.0 (0.8-1.1) Lactic Acid Level 1.2 mmol/L (0.4-2.0) Sodium Level 139 mmol/L (136-145) Potassium Level 3.7 mmol/L (3.5-5.1) Chloride Level 103 mmol/L (98-107) Carbon Dioxide Level 26 mmol/L (21-32) Anion Gap 10 (6-14) Blood Urea Nitrogen 17 mg/dL (7-20) Creatinine 1.0 mg/dL (0.6-1.0) Estimated GFR (Cockcroft-Gault) 56.7 BUN/Creatinine Ratio 17 (6-20) Glucose Level 94 mg/dL (70-99) Calcium Level 9.1 mg/dL (8.5-10.1) Magnesium Level 2.0 mg/dL (1.8-2.4) Total Bilirubin 0.2 mg/dL (0.2-1.0) Aspartate Amino Transf (AST/SGOT) 17 U/L (15-37) Alanine Aminotransferase (ALT/SGPT) 16 U/L (14-59) Alkaline Phosphatase 102 U/L (46-116) Ammonia < 10 mcmol/L (11-34) Creatine Kinase 52 U/L (26-192) Total Protein 7.3 g/dL (6.4-8.2) Albumin 3.8 g/dL (3.4-5.0) Albumin/Globulin Ratio 1.1 (1.0-1.7) Thyroid Stimulating Hormone (TSH) 3.907 uIU/mL (0.358-3.74) Urine Collection Type Unknown Urine Color Yellow Urine Clarity Cloudy Urine pH 6.0 (<5.0-8.0) Urine Specific [place] 1.025 (1.000-1.030) Urine Protein 100 mg/dL (NEG-TRACE) Urine Glucose (UA) Negative mg/dL (NEG) Urine Ketones (Stick) Negative mg/dL (NEG) Urine Blood Large (NEG) Urine Nitrite Negative (NEG) Urine Bilirubin Negative (NEG) Urine Urobilinogen Dipstick 0.2 mg/dL (0.2 mg/dL) Urine Leukocyte Esterase Large (NEG) Urine RBC Tntc /HPF (0-2) Urine WBC Tntc /HPF (0-4) Urine Squamous Epithelial Cells Mod /LPF Urine Amorphous Sediment Present /HPF Urine Bacteria Moderate /HPF (0-FEW) Urine Mucus Mod /LPF Test 10/21/19 06:15 Triglycerides Level 178 mg/dL (0-150) Cholesterol Level 218 mg/dL (0-200) LDL Cholesterol, Calculated 148 mg/dL (0-100) VLDL Cholesterol, Calculated 36 mg/dL (0-40) Non-HDL Cholesterol Calculated 184 mg/dL (0-129) HDL Cholesterol 34 mg/dL (40-60) Cholesterol/HDL Ratio 6.4 Microbiology 10/20/19 Urine Culture - Final, Complete Medications Current Medications Ondansetron HCl (Zofran) 4 mg PRN Q4HRS PRN IV NAUSEA/VOMITING 1ST CHOICE; S tart 10/20/19 at 23:30 Acetaminophen (Tylenol) 650 mg PRN Q4HRS PRN PO TEMP OVER 100.4F OR MILD PAIN; Start 10/20/19 at 23:30 Heparin Sodium (Porcine) (Heparin Sodium) 5,000 unit Q12HR SQ Last administered on 10/22/19at 08:17; Start 10/21/19 at 09:00 Labetalol HCl (Normodyne Iv Push) 10 mg PRN Q10MIN PRN IVP htn; Start 10/20/19 at 23:30 Atorvastatin Calcium (Lipitor) 80 mg DAILY PO Last administered on 10/22/19at 09:55; Start 10/21/19 at 09:00 Acetaminophen (Tylenol Supp) 650 mg PRN Q4HRS PRN NC TEMP > 100.4F; Start 10/20/19 at 23:30 Magnesium Hydroxide (Milk Of Magnesia) 2,400 mg PRN DAILY PRN PO CONSTIPATION; Start 10/20/19 at 23:30 Famotidine (Pepcid) 20 mg BID PO Last administered on 10/22/19at 08:12; Start 10/21/19 at 09:00 Aspirin (Ecotrin) 325 mg DAILYWBKFT PO Last administered on 10/22/19at 08:12; Start 10/21/19 at 08:00 Aspirin (Aspirin Rectal Supp) 300 mg PRN DAILY PRN NC IF UNABLE TO TAKE PO; Start 10/20/19 at 23:30 Acetaminophen (Tylenol) 650 mg PRN Q6HRS PRN PO TEMP > 100.4F; Start 10/21/19 at 08:45 Acetaminophen (Tylenol Supp) 650 mg PRN Q4HRS PRN NC TEMP > 100.4F; Start 10/21/19 at 08:45 Iohexol (Omnipaque 300 Mg/ml) 60 ml 1X ONCE IV Last administered on 10/21/19at 11:37; Start 10/21/19 at 11:30; Stop 10/21/19 at 11:31; Status DC Active Scripts Active Reported Midnite Chewable Tablet (Melatonin/Herbal No.233) 1 Each Tb.chw.dsp 1 Each PO HS Buspirone Hcl 10 Mg Tablet 1 Tab PO BID Eliquis (Apixaban) 2.5 Mg Tablet 2.5 Mg PO BID Vitals/I & O Vital Sign - Last 24 Hours 10/21/19 10/21/19 10/21/19 10/21/19 11:24 15:10 19:57 20:00 Temp 98.6 98.1 98.5 98.6 98.1 98.5 Pulse 78 82 82 Resp 18 17 16 B/P (MAP) 151/71 (97) 151/70 (97) 180/74 (109) Pulse Ox 97 96 96 O2 Delivery Room Air Room Air Room Air Room Air 10/21/19 10/22/19 10/22/19 10/22/19 23:30 00:56 03:31 07:46 Temp 98.8 99.0 97.6 98.8 99.0 97.6 Pulse 71 74 70 68 Resp 16 16 17 B/P (MAP) 190/82 (118) 171/76 (107) 154/71 (98) 183/65 (104) Pulse Ox 98 97 97 O2 Delivery Room Air Room Air Room Air 10/22/19 08:20 O2 Delivery Room Air Intake and Output 10/21/19 10/21/19 10/22/19 15:00 23:00 07:00 Intake Total 0 ml 300 ml 200 ml Balance 0 ml 300 ml 200 ml Images BRAIN W/O CONTRAST History:Reason: weakness, aphasia, CALL REPORT TO [facility] [phone] / [facility]. Instructions: / History: Technique: Multiplanar, multi sequential MR imaging was performed of the brain without contrast. Comparison: October 20, 2019 Findings: Acute left frontal and insular infarct. Additional small left frontal and parietal cortical infarcts. Punctate acute right posterior parietal cortical infarct (series 4 image 15). No intracranial hemorrhage. No mass effect. No hydrocephalus. Mild additional foci of FLAIR hyperintensities within the hemispheric white matter, may relate to sequelae of chronic microvascular ischemia or prior insult. Partially empty sella, often incidental. Imaged orbits are unremarkable. Imaged paranasal sinuses and mastoid air cells are clear. Impression: 1. Acute left frontal/insular infarct. 2. Additional small acute left frontoparietal and right parietal cortical infarcts. Findings raise concern for embolic etiology. CT ANGIOGRAPHY HEAD AND NECK History:Reason: mutliple strokes / Spl. Instructions: IV OMNI 300 60 MLS / History: Technique: After bolus of intravenous contrast, volumetric CT data acquisition was acquired of the head and neck. Multiplanar reconstruction images to include MIP and 3-D reconstruction images are submitted. Exposure: One or more of the following individualized dose reduction techniques were utilized for this examination: 1. Automated exposure control 2. Adjustment of the mA and/or kV according to patient size 3. Use of iterative reconstruction technique. Comparison: MRI October 21, 2019 Any determination of stenosis is based on NASCET criteria. Head CTA: Significantly degraded evaluation due to contrast bolus timing. No large proximal occlusion. Partially empty sella. Infarct better characterize on recently performed MRI. CT angiogram neck: Aortic arch: Conventional arch anatomy. Common carotid arteries: No stenosis, occlusion or dissection. Internal carotid arteries: Degraded evaluation of the distal internal carotid arteries due to contrast bolus timing. External carotid arteries: Patent Vertebral arteries: No stenosis, occlusion or dissection. No dural venous sinus stenosis or thrombosis. Imaged lung apices are unremarkable. Right thyroid nodule measures 0.8 cm. Bones: Multilevel cervical spondylosis. Impression: 1. Significantly degraded intracranial arterial evaluation due to contrast bolus timing. Recommend repeat CT angiogram or MRA to further evaluate. 2. No arterial stenosis or occlusion within the neck although degraded evaluation of the distal internal carotid arteries due to contrast bolus timing. Echocardiogram: LEFT VENTRICLE The left ventricle is normal size. There is borderline to mild concentric left ventricular hypertrophy. The left ventricular systolic function is normal and the ejection fraction is within normal range. The Ejection Fraction is 55-60%. There is normal LV segmental wall motion. Transmitral Doppler flow pattern is Grade II-pseudonormal filling dynamics. RIGHT VENTRICLE The right ventricle is normal size. There is normal right ventricular wall thickness. The right ventricular systolic function is normal. ATRIA The left atrium size is normal. The right atrium size is normal. The interatrial septum is intact with no evidence for an atrial septal defect or patent foramen ovale as noted on 2-D or Doppler imaging. Agitated saline study is negative. AORTIC VALVE The aortic valve is thickened but opens well. Doppler and Color Flow revealed trace to mild aortic regurgitation. Calculated aortic valve area is 2.5 cm2 with maximum pressure gradient of 21 mmHg and mean pressure gradient of 11 mmHg. MITRAL VALVE The mitral valve is normal in structure and function. There is no evidence of mitral valve prolapse. There is no mitral valve stenosis. Doppler and Color-flow revealed trace mitral regurgitation. TRICUSPID VALVE The tricuspid valve is normal in structure and function. Doppler and Color Flow revealed trace tricuspid regurgitation with an estimated PAP of 28 mmHg. There is no tricuspid valve stenosis. PULMONIC VALVE The pulmonic valve is not well visualized. Doppler and Color Flow revealed no pulmonic valvular regurgitation. GREAT VESSELS The aortic root is normal in size. The ascending aorta is normal in size. The IVC is normal in size and collapses >50% with inspiration. PERICARDIAL EFFUSION There is no evidence of significant pericardial effusion. Critical Notification Critical Value: No <Conclusion> The left ventricular systolic function is normal and the ejection fraction is within normal range. The Ejection Fraction is 55-60%. There is normal LV segmental wall motion. The interatrial septum is intact with no evidence for an atrial septal defect or patent foramen ovale as noted on 2-D or Doppler imaging. Agitated saline study is negative. Doppler and Color Flow revealed trace to mild aortic regurgitation. Justicifation of Admission Dx: Justifications for Admission: Justification of Admission Dx: Yes Altered Mental Status: Altered Mental Status CARRIE TO MD Oct 22, 2019 11:28
--- NOTE | 2019-10-22 11:51 | NUR ---
SW following. Reviewed chart and spoke with RN. PT recommendation is home with mother. Spoke with Dr. Wayne about potential discharge of this patient but discharge is being held for today as pt is scheduled for a CT of the head and neck and further cardiology workup. Pt will discharge home with family on oral medications and room air when stable. SW to continue following.
[2019-10-22] MEDS ORDERED: LIDOCAINE 2% TOPICAL JELLY 5GM TUBE. TP ONE (14:15)
[2019-10-22] MEDS ORDERED: BENZOCAINE ONE 20% MUCOSAL SPRAY. MM (14:15)
[2019-10-22] MEDS ORDERED: 0.9 % SODIUM CHLORIDE 10 ML DISP.SYRIN. IV PRN (14:15)
[2019-10-22] MEDS ORDERED: LIDOCAINE 2% VISCOUS 15 ML SOLUTION. MM ONE (14:15)
[2019-10-22] MEDS: LORazepam 0.5 MG TABLET PO PRN (21:45)
[2019-10-23 03:15] VITALS: BP 138/59
[2019-10-23] MEDS ORDERED: PROCHLORPERAZINE 10 MG/2 ML VIAL. IV PRN (07:00)
[2019-10-23] MEDS ORDERED: HYDROmorphone 2 MG/ML VIAL IV PRN (07:00)
[2019-10-23] MEDS ORDERED: fentaNYL PF VIAL 100 MCG/2 ML VIAL IV PRN ×2 (07:00)
[2019-10-23] MEDS ORDERED: MORPHINE SULFATE 2 MG/ML VIAL. IV PRN (07:00)
[2019-10-23] MEDS ORDERED: IV RINGERS,LACTATED 1000ML 1,000 ML IV SCH (07:00)
[2019-10-23 07:11] VITALS: BP 159/79
[2019-10-23] MEDS: ASPIRIN ENTERIC COATED 325 MG TABLET.DR. PO SCH (07:35)
[2019-10-23] MEDS ORDERED: IOHEXOL 350 MG/ML 100 ML VIAL. IV ONE (07:45)
[2019-10-23] MEDS ORDERED: CONTRAST GIVEN. MC PRN (08:00)
[2019-10-23] MEDS: ATORVASTATIN CALCIUM 40 MG TABLET. PO SCH (09:00)
[2019-10-23] MEDS: FAMOTIDINE 20 MG TABLET. PO SCH (09:00)
[2019-10-23] MEDS: HEPARIN for SUB-Q USE 5,000 UNIT/ML VIAL. SQ SCH (10:03)
[2019-10-23] MEDS ORDERED: LIDOCAINE 2% VISCOUS 15 ML SOLUTION. ONE (10:17)
[2019-10-23] MEDS ORDERED: BENZOCAINE ONE 20% MUCOSAL SPRAY. (10:18)
[2019-10-23] MEDS ORDERED: LIDOCAINE 2% TOPICAL JELLY 30GM TUBE. TP ONE (10:18)
--- NOTE | 2019-10-23 10:33 | RAD ---
EXAM: 1. CTA HEAD WITH AND WITHOUT CONTRAST. 2. CTA NECK WITH AND WITHOUT CONTRAST. HISTORY: Cerebrovascular accident. TECHNIQUE: Computed tomographic angiography of the head and neck was performed before and after the intravenous administration of iodinated contrast. Three-dimensional reconstructions were also performed. One or more of the following individualized dose reduction techniques were utilized for this examination: 1. Automated exposure control. 2. Adjustment of the mA and/or kV according to patient size. 3. Use of iterative reconstruction technique. COMPARISON: 10/21/2019. FINDINGS: Angiographic findings: The aortic arch has a typical branching pattern. There is no arch vessel stenosis. Both common carotid arteries are patent without stenosis. Both internal carotid arteries are patent without stenosis. The external carotid systems are patent. The vertebral arteries are patent. The basilar artery is patent. The left posterior cerebral artery's main supply is the posterior communicating artery. The left P1 segment is diminutive. Both posterior cerebral arteries appear patent more distally. The right posterior communicating artery is small but patent. The intracranial internal carotid arteries demonstrate no stenosis. The middle cerebral arteries are patent. The anterior cerebral arteries are patent. The anterior communicating artery is visualized. Nonangiographic findings: There is no intracranial hemorrhage. A moderately sized subacute infarct is suspected in the left frontal lobe. The ventricles are normal in size and position. The paranasal sinuses appear clear. The orbits are unremarkable. The temporal bones are unremarkable. Bone windows reveal no suspicious lesions. The lung apices demonstrate no acute abnormality. The parotid glands and submandibular glands are unremarkable. The thyroid gland demonstrates no suspicious lesions. There are no laryngeal or pharyngeal masses. There are no pathologically enlarged lymph nodes. IMPRESSION: 1. Hemodynamically significant cervical arterial stenosis. 2. No intracranial stenosis or aneurysm. 3. Moderately sized subacute left frontal infarct. MRI could further evaluate if the diagnosis remains unclear. PQRS Compliance Statement - Stenosis calculations for CT, MR and conventional angiography are based upon measurement of the distal ICA diameter in accordance with the NASCET methodology. Stenosis calculations for carotid ultrasound studies are derived from validated velocity criteria which are known to correlate with the NASCET methodology. Electronically signed by: Berenice Baca MD (10/23/2019 10:31 AM) [id number]
[2019-10-23] MEDS ORDERED: LIDOCAINE 1% Multi-Dose 20 ML VIAL. ONE (10:36)
[2019-10-23 11:11] VITALS: BP 155/90
[2019-10-23] MEDS ORDERED: LIDOCAINE 2%/EPI 1:100,000 20 ML VIAL. ONE (11:45)
--- NOTE | 2019-10-23 11:54 | PDOC ---
[facility] PROGRESS NOTE Chief Complaint Chief Complaint Stroke with mild expressive aphasia Anxiety History of DVT History of IVC filter History of Present Illness History of Present Illness 10/23/2019 Patient seen and examined She is approaching her baseline and improving a lot We are awaiting a transesophageal echo but after that I suspect she could go if okay with consult Vitals/I&O Vitals/I&O: Vital Signs Date Time Temp Pulse Resp B/P (MAP) Pulse Ox O2 Delivery O2 Flow Rate FiO2 10/23/19 11:11 97.9 70 16 155/90 (111) 81 Room Air 97.9 I & O 10/22/19 10/22/19 10/23/19 15:00 23:00 07:00 Intake Total 240 ml 240 ml Balance 240 ml 240 ml Physical Exam General: Alert, Oriented X3, Cooperative Heart: Regular rate, No murmurs Lungs: Clear Abdomen: Soft, No tenderness Extremities: No edema, Normal pulses Skin: No significant lesion Labs Labs: Laboratory Tests Test 10/22/19 14:35 Coronavirus (COVID-19)(PCR) Negative (NEGATIVE) Assessment and Plan Assessmemt and Plan Problems Medical Problems: (1) Altered mental state Status: Acute (2) Dysarthria Status: Acute Stroke with mild expressive aphasia Anxiety History of DVT History of IVC filter Plan Awaiting transesophageal echo After the echo I suspect she could go home if okay with consultants If discharge follow-up PCP in 1 week For now continue PT OT and speech therapy and other meds Comment Review of Relevant I have reviewed the following items gloria (where applicable) has been applied. Medications: Current Medications Medications (Trade) Dose Ordered Sig/Willow Route PRN Reason Start Time Stop Time Status Last Admin Dose Admin Lorazepam (Ativan) 0.5 mg PRN Q12HRS PRN PO ANXIETY / AGITATION 10/22/19 20:30 10/22/19 21:45 Iohexol (Omnipaque 350 Mg/ml) 60 ml 1X ONCE IV 10/23/19 07:45 10/23/19 07:49 DC 10/23/19 07:45 Justicifation of Admission Dx: Justifications for Admission: Justification of Admission Dx: Yes Altered Mental Status: Altered Mental Status DEEPALI DIAZ III DO Oct 23, 2019 11:54
[2019-10-23] MEDS ORDERED: LIDOCAINE 2%/EPI 1:100,000 20 ML VIAL. IJ ONE (12:00)
--- NOTE | 2019-10-23 12:29 | PDOC ---
PROGRESS NOTES Assessment Problems Medical Problems: (1) Altered mental state Status: Acute (2) Dysarthria Status: Acute Acute left frontal/insular infarct. Additional small acute left frontoparietal and right parietal cortical infarcts. Findings raise concern for embolic etiology No conversion reaction related to the recent deaths. She has pre-existing psychiatric disease. Recent DVT, [place] filter placed Plan Transesophageal echocardiogram and outpatient LINQ recording. Repeat CT angiogram done, normal, radiologist clarified ambiguous report Rehabilitation modalities, will need to be through home health given lack of insurance Aspirin, unless embolic source found Discussed with family Subjective none Objective Vital Signs Date Time Temp Pulse Resp B/P (MAP) Pulse Ox O2 Delivery O2 Flow Rate FiO2 10/23/19 11:11 97.9 70 16 155/90 (111) 81 Room Air 97.9 Intake and Output 10/23/19 07:00 Intake Total 480 ml Balance 480 ml Intake Oral 480 ml # Voids 3 PHYSICAL EXAM Alert. Oriented to time, place and person, Expressive speech difficulties. PERRL. EOMI. CN: no focal findings. Muscle tone: normal. Muscle strength: 5/5 DTR: 2+ Plantar reflex: flexor Gait: not examined in bed. Sensory exam: no abnormal findings. No cerebellar signs elicited. Review of Relevant I have reviewed the following items gloria (where applicable) has been applied. Labs Laboratory Tests Test 10/22/19 14:35 Coronavirus (COVID-19)(PCR) Negative (NEGATIVE) Laboratory Tests Test 10/22/19 14:35 Coronavirus (COVID-19)(PCR) Negative (NEGATIVE) Microbiology 10/20/19 Urine Culture - Final, Complete Medications Current Medications Ondansetron HCl (Zofran) 4 mg PRN Q4HRS PRN IV NAUSEA/VOMITING 1ST CHOICE; Start 10/20/19 at 23:30 Acetaminophen (Tylenol) 650 mg PRN Q4HRS PRN PO TEMP OVER 100.4F OR MILD PAIN; Start 10/20/19 at 23:30; Stop 10/22/19 at 11:51; Status DC Heparin Sodium (Porcine) (Heparin Sodium) 5,000 unit Q12HR SQ Last administered on 10/23/19at 10:03; Start 10/21/19 at 09:00 Labetalol HCl (Normodyne Iv Push) 10 mg PRN Q10MIN PRN IVP htn; Start 10/20/19 at 23:30 Atorvastatin Calcium (Lipitor) 80 mg DAILY PO Last administered on 10/22/19at 09:55; Start 10/21/19 at 09:00 Acetaminophen (Tylenol Supp) 650 mg PRN Q4HRS PRN CA TEMP > 100.4F; Start 10/20/19 at 23:30; Stop 10/22/19 at 11:51; Status DC Magnesium Hydroxide (Milk Of Magnesia) 2,400 mg PRN DAILY PRN PO CONSTIPATION; Start 10/20/19 at 23:30 Famotidine (Pepcid) 20 mg BID PO Last administered on 10/22/19at 21:45; Start 10/21/19 at 09:00 Aspirin (Ecotrin) 325 mg DAILYWBKFT PO Last administered on 10/22/19at 08:12; Start 10/21/19 at 08:00 Aspirin (Aspirin Rectal Supp) 300 mg PRN DAILY PRN CA IF UNABLE TO TAKE PO; Start 10/20/19 at 23:30 Acetaminophen (Tylenol) 650 mg PRN Q6HRS PRN PO MILD PAIN, TEMP > 100.4F; Start 10/21/19 at 08:45 Acetaminophen (Tylenol Supp) 650 mg PRN Q4HRS PRN CA TEMP > 100.4F; Start 10/21/19 at 08:45 Iohexol (Omnipaque 300 Mg/ml) 60 ml 1X ONCE IV Last administered on 10/21/19at 11:37; Start 10/21/19 at 11:30; Stop 10/21/19 at 11:31; Status DC Sodium Chloride (Normal Saline Flush) 10 ml QSHIFT PRN IV AFTER MEDS AND BLOOD DRAWS; Start 10/22/19 at 14:15 Lidocaine HCl (Xylocaine 2% Topical 5gm Tube) 1 terrell 1X ONCE TP ; Start 10/22/19 at 14:15; Stop 10/22/19 at 14:21; Status DC Lidocaine HCl (Viscous Lidocaine) 15 ml 1X ONCE MM ; Start 10/22/19 at 14:15; Stop 10/22/19 at 14:21; Status DC Benzocaine (Hurricaine One) 2 spray 1X ONCE MM ; Start 10/22/19 at 14:15; Stop 10/22/19 at 14:21; Status DC Fentanyl Citrate (Fentanyl 2ml Vial) 25 mcg PRN Q5MIN PRN IV MILD PAIN 1-3; Start 10/23/19 at 07:00; Stop 10/23/19 at 20:00 Fentanyl Citrate (Fentanyl 2ml Vial) 50 mcg PRN Q5MIN PRN IV MODERATE TO SEVERE PAIN; Start 10/23/19 at 07:00; Stop 10/23/19 at 20:00 Morphine Sulfate (Morphine Sulfate) 1 mg PRN Q10MIN PRN IV SEVERE PAIN 7-10; Start 10/23/19 at 07:00; Stop 10/23/19 at 20:00 Ringer's Solution 1,000 ml @ 30 mls/hr Q24H IV ; Start 10/23/19 at 07:00; Stop 10/23/19 at 18:59 Hydromorphone HCl (Dilaudid) 0.5 mg PRN Q10MIN PRN IV SEV PAIN, Second choice; Start 10/23/19 at 07:00; Stop 10/23/19 at 20:00 Prochlorperazine Edisylate (Compazine) 5 mg PACU PRN PRN IV NAUSEA, MRX1; Start 10/23/19 at 07:00; Stop 10/23/19 at 20:00 Lorazepam (Ativan) 0.5 mg PRN Q12HRS PRN PO ANXIETY / AGITATION Last administered on 10/22/19at 21:45; Start 10/22/19 at 20:30 Iohexol (Omnipaque 350 Mg/ml) 60 ml 1X ONCE IV Last administered on 10/23/19at 07:45; Start 10/23/19 at 07:45; Stop 10/23/19 at 07:49; Status DC Info (CONTRAST GIVEN -- Rx MONITORING) 1 each PRN DAILY PRN MC SEE COMMENTS; Start 10/23/19 at 08:00; Stop 10/25/19 at 07:59 Lidocaine HCl (Viscous Lidocaine) 15 ml STK-MED ONCE .ROUTE ; Start 10/23/19 at 10:17; Stop 10/23/19 at 10:18; Status DC Lidocaine HCl (Xylocaine 2% Topical 30gm Tube) 30 terrell STK-MED ONCE TP ; Start 10/23/19 at 10:18; Stop 10/23/19 at 10:18; Status DC Benzocaine (Hurricaine One) 1 spray STK-MED ONCE .ROUTE ; Start 10/23/19 at 10:18; Stop 10/23/19 at 10:18; Status DC Lidocaine HCl (Lidocaine 1% 20ml Vial) 20 ml STK-MED ONCE .ROUTE ; Start 10/23/19 at 10:36; Stop 10/23/19 at 10:37; Status DC Lidocaine/ Epinephrine (LIDOCAINE 2%-EPI 1:100,000 multi-dose) 20 ml STK-MED ONCE .ROUTE ; Start 10/23/19 at 11:45; Stop 10/23/19 at 11:46; Status DC Lidocaine/ Epinephrine (LIDOCAINE 2%-EPI 1:100,000 multi-dose) 20 ml 1X ONCE IJ Last administered on 10/23/19at 12:22; Start 10/23/19 at 12:00; Stop 10/23/19 at 12:01; Status DC Active Scripts Active Reported Midnite Chewable Tablet (Melatonin/Herbal No.233) 1 Each Tb.chw.dsp 1 Each PO HS Buspirone Hcl 10 Mg Tablet 1 Tab PO BID Eliquis (Apixaban) 2.5 Mg Tablet 2.5 Mg PO BID Vitals/I & O Vital Sign - Last 24 Hours 10/22/19 10/22/19 10/22/19 10/22/19 15:08 19:54 20:10 23:48 Temp 98.0 97.7 98.4 98.0 97.7 98.4 Pulse 73 70 57 Resp 17 20 20 B/P (MAP) 123/81 (95) 148/71 (96) 141/71 (94) Pulse Ox 99 99 98 O2 Delivery Room Air Room Air Room Air Room Air 10/23/19 10/23/19 10/23/19 10/23/19 03:15 07:11 07:39 11:11 Temp 98.8 97.7 97.9 98.8 97.7 97.9 Pulse 69 68 70 Resp 16 16 16 B/P (MAP) 138/59 (85) 159/79 (105) 155/90 (111) Pulse Ox 98 99 81 O2 Delivery Room Air Room Air Room Air Room Air Intake and Output 10/22/19 10/22/19 10/23/19 15:00 23:00 07:00 Intake Total 240 ml 240 ml Balance 240 ml [address] ANGIOGRAPHY HEAD AND NECK ADDENDUM ADDENDUM: The first point of the impression section should read: 1. NO hemodynamically significant cervical arterial stenosis. Electronically signed by: Berenice Baca MD (10/23/2019 11:44 AM) [id number] DICTATED AND SIGNED BY: KALI BACA MD DATE: 10/23/19 1144 CC: CARRIE TO MD; ALISA STEPHEN MD; FELICE AGUILAR MD; JANEY FRITZ; CIRO BRANDT MD ~ EXAM: 1. CTA HEAD WITH AND WITHOUT CONTRAST. 2. CTA NECK WITH AND WITHOUT CONTRAST. HISTORY: Cerebrovascular accident. TECHNIQUE: Computed tomographic angiography of the head and neck was performed before and after the intravenous administration of iodinated contrast. Three-dimensional reconstructions were also performed. One or more of the following individualized dose reduction techniques were utilized for this examination: 1. Automated exposure control. 2. Adjustment of the mA and/or kV according to patient size. 3. Use of iterative reconstruction technique. COMPARISON: 10/21/2019. FINDINGS: Angiographic findings: The aortic arch has a typical branching pattern. There is no arch vessel stenosis. Both common carotid arteries are patent without stenosis. Both internal carotid arteries are patent without stenosis. The external carotid systems are patent. The vertebral arteries are patent. The basilar artery is patent. The left posterior cerebral artery's main supply is the posterior communicating artery. The left P1 segment is diminutive. Both posterior cerebral arteries appear patent more distally. The right posterior communicating artery is small but patent. The intracranial internal carotid arteries demonstrate no stenosis. The middle cerebral arteries are patent. The anterior cerebral arteries are patent. The anterior communicating artery is visualized. Nonangiographic findings: There is no intracranial hemorrhage. A moderately sized subacute infarct is suspected in the left frontal lobe. The ventricles are normal in size and position. The paranasal sinuses appear clear. The orbits are unremarkable. The temporal bones are unremarkable. Bone windows reveal no suspicious lesions. The lung apices demonstrate no acute abnormality. The parotid glands and submandibular glands are unremarkable. The thyroid gland demonstrates no suspicious lesions. There are no laryngeal or pharyngeal masses. There are no pathologically enlarged lymph nodes. IMPRESSION: 1. Hemodynamically significant cervical arterial stenosis. 2. No intracranial stenosis or aneurysm. 3. Moderately sized subacute left frontal infarct. MRI could further evaluate if the diagnosis remains unclear. Justicifation of Admission Dx: Justifications for Admission: Justification of Admission Dx: Yes Altered Mental Status: Altered Mental Status CARRIE TO MD Oct 23, 2019 12:29
[2019-10-23] MEDS ORDERED: PROPOFOL 10 MG/ML (20ML) VIAL. IV ONE (14:06)
[2019-10-23] MEDS ORDERED: LIDOCAINE 2% 100 MG/5 ML SYRINGE. ONE (14:06)
[2019-10-23 15:10] VITALS: BP 158/69
--- NOTE | 2019-10-23 15:25 | CARD ---
MR#: [id number] Date of Study: 10/23/2019 Ordering Physician: JONO CLAYTON, Referring Physician: JONO CLAYTON, Tech: APPROVED REPORT EXAM Loop Recorder After appropriate informed consent the left chest was prepped and draped in usual sterile fashion. 1 5 mL of 2% lidocaine was administered to the left third intercostal parasternal space. Next, a 0.5 i nch incision was made and a subcutaneous tunnel was created. With the prespecified tunneling tool a Think[employer]ronik bio monitor serial #[id number] was implanted without any difficulty. Excellent amplitudes we re obtained. The incision was then closed with Steri-Strips. No acute complications noted. CONCLUSION 1. Successful implantation of a Biotronik loop recorder for evaluation of possible cryptogenic strok e Signed by : Frederick Alcala, Electronically Approved : 10/23/2019 15:24:42
[2019-10-23] MEDS: LORazepam 0.5 MG TABLET PO PRN (15:30)
--- NOTE | 2019-10-23 16:33 | NUR ---
This RN received telephone orders from Dr. Wayne for Atorvastatin 20 mg PO HS and over the counter 81 mg Aspirin. This RN called in Atorvastatin to the [facility] at [phone]. This RN spoke to Selina Donato, pharmacist who filled prescription.
--- NOTE | 2019-10-23 16:46 | NUR ---
SW following. Spoke with RN and CM. Reviewed chart. Pt ready for discharge today per Dr. Wayne after echo. Pt declined the need for HH and will discharge on room air and oral medications. No additional SW needs at this time.
--- NOTE | 2019-10-23 16:57 | CARD ---
MR#: [id number] Date of Study: 10/23/2019 Ordering Physician: JONO CLAYTON, Referring Physician: JONO CLAYTON, Tech: Yanci Solano RDCS APPROVED REPORT EXAM: Transesophageal echocardiogram with color flow Doppler. INDICATION CVA/TIA Echo Enhancing Agent Agent/Amount Used: Agitated Saline 8mL Reason For Test : Rule out cardiac source of emboli. PROCEDURE After obtaining informed consent, patient underwent transesophageal echo in the PACU. Type of Sedation : General Anesthesia Sedation was administered by Keagan Diaz MD, Josué Booker CRNA. Sedation was achieved with Propofol 225 mg intravenously. Transesophageal probe was inserted and advanced into esophagus by Akira Hendrix MD. The DMITRI was performed without complications. Throughout the procedure, the blood pressure, pulse oximetry, cardiac rhythm, and rate were monitored . The patient tolerated the procedure without adverse effects. Recovery from general anesthesia was une ventful and vital signs were stable. LEFT VENTRICLE The left ventricle is normal size. There is normal left ventricular wall thickness. The left ventricu lar systolic function is normal and the ejection fraction is within normal range. The Ejection Fracti on is 55-60%. There is normal LV segmental wall motion. No left ventricle thrombus noted on this stud y. RIGHT VENTRICLE The right ventricle is normal size. The right ventricular systolic function is normal. ATRIA The left atrium size is normal. The right atrium size is normal. The interatrial septum is intact wit h no evidence for an atrial septal defect or patent foramen ovale as noted on 2-D or Doppler imaging. Injection of bubbles documented no interatrial shunt. There is no thrombus noted in the left atrial appendage. AORTIC VALVE The aortic valve is normal in structure and function. Doppler and Color Flow revealed mild aortic reg urgitation. There is no significant aortic valvular stenosis. MITRAL VALVE The mitral valve is normal in structure and function. There is no evidence of mitral valve prolapse. There is no mitral valve stenosis. Doppler and Color-flow revealed mild mitral regurgitation. TRICUSPID VALVE The tricuspid valve is normal in structure and function. Doppler and Color Flow revealed no tricuspid valve regurgitation noted. There is no tricuspid valve stenosis. PULMONIC VALVE The pulmonic valve is not well visualized. Doppler and Color Flow revealed trace pulmonic valvular re gurgitation. GREAT VESSELS Normal pulmonary venous flow (Doppler). Critical Notification Critical Value: No <Conclusion> The left ventricle is normal size. The left ventricular systolic function is normal and the ejection fraction is within normal range. The Ejection Fraction is 55-60%. The interatrial septum is intact with no evidence for an atrial septal defect or patent foramen ovale as noted on 2-D or Doppler imaging. Injection of bubbles documented no interatrial shunt. There is no thrombus noted in the left atrial appendage. Doppler and Color Flow revealed mild aortic regurgitation. There is no significant aortic valvular stenosis. Doppler and Color-flow revealed mild mitral regurgitation. Doppler and Color Flow revealed no tricuspid valve regurgitation noted. Signed by : Akira Hendrix MD Electronically Approved : 10/23/2019 16:56:37
--- NOTE | 2019-10-23 16:59 | NUR ---
Pt left the unit by wheelchair via private vehicle at approx 1650. Pt accompanied by mother and sister. IV removed with no complications. Stroke education packet provided to pt and thoroughly discussed in detail with pt, sister, and mother. Additional education provided on low cholesterol diet and stroke prevention. All additional questions addressed.
--- NOTE | 2019-10-24 14:13 | DS ---
DATE OF DISCHARGE: 10/23/2019 ADMISSION DIAGNOSES: Stroke symptoms with mental status change and speech difficulty. DISCHARGE DIAGNOSIS: Acute left frontal insular stroke. CONSULTS: Dr. Buitrago. PROCEDURES: None. HOSPITAL COURSE: The patient is a pleasant middle-aged female who presented with mental status change and slurred speech. At first, we thought it could be a conversion disorder, but we did consult Dr. Buitrago. We did an MRI, which actually did confirm a stroke. She had a mild expressive aphasia, but that seemed to be starting to resolve quite a bit. Yesterday, I saw her and examined her. Her heart tones were normal. Lungs were clear. She was speaking better. We did also consult Cardiology. Overall, she did well. We discharged her yesterday to home. DISPOSITION: Home with home health. ACTIVITY: As tolerated. DIET: Low sodium. MEDICATIONS: Please see the MRAD. TOTAL TIME: 31 minutes. DEEPALI DIAZ DO DR: ANTWON/olivia JOB#: [id number] / [id number]
== END 2019-10-23 17:04 | disposition home or self-care (01) | DRG 66 ==
LOC: ER 17:19 → 6 SOUTH 22:00
PROVIDERS: ADMIT Internal Medicine; ATTEND Internal Medicine
DX: I63.9 Cerebral infarction, unspecified (principal); D50.9 Iron deficiency anemia, unspecified; R47.01 Aphasia; E66.01 Morbid (severe) obesity due to excess calories; E78.5 Hyperlipidemia, unspecified; F32.9 Major depressive disorder, single episode, unspecified; F41.9 Anxiety disorder, unspecified; I11.9 Hypertensive heart disease without heart failure; I77.1 Stricture of artery; Z83.3 Family history of diabetes mellitus; Z86.718 Personal history of other venous thrombosis and embolism; Z86.73 Personal history of transient ischemic attack (TIA), and cerebral infarction without residual deficits; Z95.828 Presence of other vascular implants and grafts; Z20.828 Contact with and (suspected) exposure to other viral communicable diseases
CPT/HCPCS: 33285; 36415; 70450; 70496; 70498; 70551; 80053; 80061; 81001; 82140; 82550; 82962; 83605; 83735; 84443; 85025; 85610; 87086; 93005; 93306; 93312; 93320; 93325; C1764; J1644; J2704; J3490; J7120; Q9967; 92523-GN; 92610-GN; 97110-GO; 97110-GP; 97116-GP; 97530-GP; 97535-GO; 99285-25; G0378; U0003-CS

== ENCOUNTER 2019-11-05 05:25 | Inpatient (IN) | payer MEDICAID, OTHER, SELFPAY ==
[~2019-11-05] VITALS: Ht 160 cm; Wt 107.0 kg
[~2019-11-05 05:25] MED LIST changes: +APIX2.5T PO; +BUSP10TA PO; +MELA PO
--- NOTE | 2019-11-05 05:54 | RAD ---
EXAM: PORTABLE CHEST 1V INDICATION: Reason: ams / Spl. Instructions: / History: . TECHNIQUE: Single view COMPARISON: None FINDINGS: Left chest event monitor. The heart size is normal. The great vessels appear unremarkable. There is no hilar or mediastinal mass. The lungs are clear. There is no pleural effusion or pneumothorax. There are no significant osseous abnormalities. IMPRESSION: No active cardiopulmonary disease. Electronically signed by: Jabier Salinas MD (11/05/2019 5:51 AM) [facility] [place]
[2019-11-05 06:24] LABS: BASO # 0.1 x10^3/uL (0.0-0.2); BASO % 1 % (0-3); EOS # 0.2 x10^3/uL (0.0-0.7); EOS % 3 % (0-3); HEMATOCRIT 38.7 % (36.0-47.0); HEMOGLOBIN 12.4 g/dL (12.0-15.5); LYMPH % 15 % (24-48); MEAN CORPUSCULAR HEMOGLOBIN 25 pg (25-35); MEAN CORPUSCULAR HGB CONC 32 g/dL (31-37); MEAN CORPUSCULAR VOLUME 79 fL (79-100); MONO # 0.5 x10^3/uL (0.0-1.1); MONO % 7 % (0-9); NEUT # 5.1 x10^3/uL (1.8-7.7); NEUT % 74 % (31-73); PLATELET COUNT 206 x10^3/uL (140-400); RED BLOOD COUNT 4.91 x10^6/uL (3.50-5.40); WHITE BLOOD COUNT 6.9 x10^3/uL (4.0-11.0)
[2019-11-05 06:47] LABS: CALCIUM 9.7 mg/dL (8.5-10.1); CREATININE 1.2 mg/dL (0.6-1.0)
[2019-11-05 06:53] LABS: ALBUMIN 3.8 g/dL (3.4-5.0); ALBUMIN/GLOBULIN RATIO 1.2 (1.0-1.7); TOTAL BILIRUBIN 0.3 mg/dL (0.2-1.0); TOTAL PROTEIN 7.1 g/dL (6.4-8.2)
--- NOTE | 2019-11-05 06:55 | RAD ---
EXAM: CT Head without IV contrast INDICATION: Reason: ams-NOT READY @545 / Spl. Instructions: / History: TECHNIQUE: Multi-detector row CT images were obtained of the head without the use of IV contrast. All CT scans performed at this facility utilize dose optimization techniques as appropriate to the exam, including the following: Automated exposure control and adjustment of the mA and/or KV according to patient size (this includes techniques or standardized protocols for targeted exams where dose is indication/reason for exam). COMPARISON: None FINDINGS: BRAIN PARENCHYMA: No evidence of acute intraparenchymal hemorrhage or infarct. No abnormal parenchymal density or mass. VENTRICLES & EXTRA-AXIAL SPACES: Ventricles are within normal limits. Basilar cisterns are patent. No pathologic extra-axial fluid collection or mass. ORBITS: Orbital contents are unremarkable. SINUSES: Visualized paranasal sinuses and mastoid air cells are clear. OSSEOUS & SOFT TISSUES: Calvarium and skull base are intact. IMPRESSION: No acute intracranial pathology. Electronically signed by: Jabier Salinas MD (11/05/2019 6:52 AM) [facility] [place]
--- NOTE | 2019-11-05 07:18 | PHYS DOC ---
Past Medical History Past Medical History: Anemia, Anxiety, High Cholesterol, Stroke, Other Additional Past Medical Histor: leg blood clots, blood thinners, vag bleeding Past Surgical History: No Surgical History Smoking Status: Never Smoker Alcohol Use: None General Adult EDM: Chief Complaint: ALTERED MENTAL STATUS HPI: HPI: Patient is a 59 year old female who was brought here by EMS due to headache, weakness, confusion, not able to speak since 7 PM yesterday. Patient was evaluated here on October 21, 2019, diagnosed with acute stroke, has residual right- sided weakness was expressive aphasia. Patient is currently on Eliquis, Anorvastatin, baby aspirin and Amitriptyline. Patient started taking her amitriptyline last night due to headache,. She kept telling her mom that she does not feel right. She was shaky, speech was slurred. She tried to sleep off but could not sleep so she called her mom to take her to the hospital. Patient was Review of Systems: Review of Systems: Constitutional: Denies fever or chills. [] Eyes: Denies change in visual acuity. [] HENT: Denies nasal congestion or sore throat. [] Respiratory: Denies cough or shortness of breath. [] Cardiovascular: Denies chest pain or edema. [] GI: Denies abdominal pain, nausea, vomiting, bloody stools or diarrhea. [] : Denies dysuria. [] Musculoskeletal: Denies back pain or joint pain. [] Integument: Denies rash. [] Neurologic: Positive for headache, generalized weakness, trouble speaking. Endocrine: Denies polyuria or polydipsia. [] Lymphatic: Denies swollen glands. [] Psychiatric: Denies depression or anxiety. [] Heart Score: Risk Factors: Risk Factors: DM, Current or recent (<one month) smoker, HTN, HLP, family history of CAD, obesity. Risk Scores: Score 0 - 3: 2.5% MACE over next 6 weeks - Discharge Home Score 4 - 6: 20.3% MACE over next 6 weeks - Admit for Clinical Observation Score 7 - 10: 72.7% MACE over next 6 weeks - Early Invasive Strategies Allergies: Allergies: Allergies Coded Allergies Type Severity Reaction Last Updated Verified No Known Drug Allergies 08/12/19 No Physical Exam: PE: Constitutional: Well developed, well nourished, no acute distress, non-toxic appearance. [] HENT: Normocephalic, atraumatic, bilateral external ears normal, oropharynx mo ist, no oral exudates, nose normal. [] Eyes: PERRLA, EOMI, conjunctiva normal, no discharge. [] Neck: Normal range of motion, no tenderness, supple, no stridor. [] Cardiovascular:Heart rate regular rhythm, no murmur [] Lungs & Thorax: Bilateral breath sounds clear to auscultation [] Abdomen: Bowel sounds normal, soft, no tenderness, no masses, no pulsatile masses. [] Skin: Warm, dry, no erythema, no rash. [] Back: No tenderness, no CVA tenderness. [] Extremities: No tenderness, no cyanosis, no clubbing, ROM intact, no edema. [] Neurologic: Alert, has expressive aphasia, left-sided facial droop, was able to move all of her extremities Psychologic: Affect normal, judgement normal, mood normal. [] Current Patient Data: Labs: Laboratory Tests Test 11/05/19 06:11 White Blood Count 6.9 x10^3/uL (4.0-11.0) Red Blood Count 4.91 x10^6/uL (3.50-5.40) Hemoglobin 12.4 g/dL (12.0-15.5) Hematocrit 38.7 % (36.0-47.0) Mean Corpuscular Volume 79 fL (79-100) Mean Corpuscular Hemoglobin 25 pg (25-35) Mean Corpuscular Hemoglobin Concent 32 g/dL (31-37) Red Cell Distribution Width 18.0 % (11.5-14.5) H Platelet Count 206 x10^3/uL (140-400) Neutrophils (%) (Auto) 74 % (31-73) H Lymphocytes (%) (Auto) 15 % (24-48) L Monocytes (%) (Auto) 7 % (0-9) Eosinophils (%) (Auto) 3 % (0-3) Basophils (%) (Auto) 1 % (0-3) Neutrophils # (Auto) 5.1 x10^3/uL (1.8-7.7) Lymphocytes # (Auto) 1.0 x10^3/uL (1.0-4.8) Monocytes # (Auto) 0.5 x10^3/uL (0.0-1.1) Eosinophils # (Auto) 0.2 x10^3/uL (0.0-0.7) Basophils # (Auto) 0.1 x10^3/uL (0.0-0.2) Sodium Level 142 mmol/L (136-145) Potassium Level 4.0 mmol/L (3.5-5.1) Chloride Level 104 mmol/L (98-107) Carbon Dioxide Level 25 mmol/L (21-32) Anion Gap 13 (6-14) Blood Urea Nitrogen 15 mg/dL (7-20) Creatinine 1.2 mg/dL (0.6-1.0) H Estimated GFR (Cockcroft-Gault) 46.0 BUN/Creatinine Ratio 13 (6-20) Glucose Level 102 mg/dL (70-99) H Calcium Level 9.7 mg/dL (8.5-10.1) Magnesium Level 2.0 mg/dL (1.8-2.4) Total Bilirubin 0.3 mg/dL (0.2-1.0) Aspartate Amino Transferase (AST) 16 U/L (15-37) Alanine Aminotransferase (ALT) 17 U/L (14-59) Alkaline Phosphatase 104 U/L (46-116) Ammonia < 10 mcmol/L (11-34) L Total Protein 7.1 g/dL (6.4-8.2) Albumin 3.8 g/dL (3.4-5.0) Albumin/Globulin Ratio 1.2 (1.0-1.7) Ethyl Alcohol Level < 10 mg/dL (0-10) Laboratory Tests 11/05/19 06:11 Laboratory Tests 11/05/19 06:11 Vital Signs: Vital Signs Date Time Temp Pulse Resp B/P (MAP) Pulse Ox O2 Delivery O2 Flow Rate FiO2 11/05/19 06:15 98.4 58 17 100 98.4 11/05/19 05:25 185/74 (111) Room Air EKG: EKG: EKG was done at 619, heart rate of 58 bpm, normal sinus rhythm, no ST segment elevation [] Radiology/Procedures: Radiology/Procedures: [][facility] [address] [place], [place] [id number] IMAGING REPORT Signed PATIENT: JOSSUE YOU ACCOUNT: [id number] : 1960 LOCATION: ER AGE: 59 SEX: F EXAM STATUS: REG ER ORD. PHYSICIAN: SAMI LOCKE MD REASON: ams-NOT READY @545 PROCEDURE: CT HEAD WO CONTRAST EXAM: CT Head without IV contrast INDICATION: Reason: ams-NOT READY @545 / Spl. Instructions: / History: TECHNIQUE: Multi-detector row CT images were obtained of the head without the use of IV contrast. All CT scans performed at this facility utilize dose optimization techniques as appropriate to the exam, including the following: Automated exposure control and adjustment of the mA and/or KV according to patient size (this includes techniques or standardized protocols for targeted exams where dose is indication/reason for exam). COMPARISON: None FINDINGS: BRAIN PARENCHYMA: No evidence of acute intraparenchymal hemorrhage or infarct. No abnormal parenchymal density or mass. VENTRICLES & EXTRA-AXIAL SPACES: Ventricles are within normal limits. Basilar cisterns are patent. No pathologic extra-axial fluid collection or mass. ORBITS: Orbital contents are unremarkable. SINUSES: Visualized paranasal sinuses and mastoid air cells are clear. OSSEOUS & SOFT TISSUES: Calvarium and skull base are intact. IMPRESSION: No acute intracranial pathology. Electronically signed by: Phu Salinas MD (11/05/2019 6:52 AM) [facility] DICTATED and SIGNED BY: PHU SALINAS MD DATE: 11/05/19 0652 [facility] [address] [place], [place] [id number] IMAGING REPORT Signed PATIENT: JOSSUE YOU ACCOUNT: [id number] : 1960 LOCATION: ER AGE: 59 SEX: F EXAM STATUS: REG ER ORD. PHYSICIAN: SAMI LOCKE MD REASON: ams PROCEDURE: PORTABLE CHEST 1V EXAM: PORTABLE CHEST 1V INDICATION: Reason: ams / Spl. Instructions: / History: . TECHNIQUE: Single view COMPARISON: None FINDINGS: Left chest event monitor. The heart size is normal. The great vessels appear unremarkable. There is no hilar or mediastinal mass. The lungs are clear. There is no pleural effusion or pneumothorax. There are no significant osseous abnormalities. IMPRESSION: No active cardiopulmonary disease. Electronically signed by: Phu Salinas MD (11/05/2019 5:51 AM) [facility] DICTATED and SIGNED BY: PHU SALINAS MD DATE: 11/05/19 0551 Course & Med Decision Making: Course & Med Decision Making Pertinent Labs and Imaging studies reviewed. (See chart for details) Patient is a 59-year-old female who was evaluated in the ER due to worsening expressive aphasia, headache confusion, weakness and shakiness. CT scan did not show any acute problem, with her recent history of stroke, she will be admitted to hospital for further evaluation and treatment discussed with Dr. Sinclair, neurologist, recommended the same. Patient may suffer another episode CVA or she might had reaction from amitriptyline. Discussed with Dr. Wayne hospitalist on-call who agrees admit the patient Dragsammi Disclaimer: Christine Disclaimer: This electronic medical record was generated, in whole or in part, using a voice recognition dictation system. Departure Departure Impression: Primary Impression: Expressive aphasia Additional Impression: Headache Disposition: ADMITTED INPATIENT Condition: STABLE Referrals: DELORIS DURHAM MD (PCP) Justicifation of Admission Dx: Justifications for Admission: Justification of Admission Dx: Yes Altered Mental Status: Altered Mental Status JACQUIE RUSSELL DO Nov 05, 2019 07:18
[2019-11-05] MEDS ORDERED: BENZTROPINE MESYLATE 2 MG/2 ML VIAL. IM STA (07:54)
[2019-11-05] MEDS ORDERED: ONDANSETRON PF 4 MG/2 ML VIAL. IV PRN (08:00)
[2019-11-05] MEDS ORDERED: ACETAMINOPHEN 650 MG SUPP.RECT. PR PRN (09:00)
[2019-11-05 09:05] LABS: BILIRUBIN,URINE NEGATIVE (NEG); CLARITY,URINE CLOUDY; NITRITE,URINE NEGATIVE (NEG); PH,URINE 6.5 (<5.0-8.0); PROTEIN,URINE 100 mg/dL (NEG-TRACE); UROBILINOGEN,URINE 0.2 mg/dL (0.2 mg/dL)
[2019-11-05 09:13] LABS: BARBITURATES NEG (NEG); BENZODIAZEPINES NEG (NEG); CANNABINOIDS NEG (NEG); COCAINE NEG (NEG); METHADONE NEG (NEG); OPIATES NEG (NEG); PHENCYCLIDINE NEG (NEG)
[2019-11-05 09:14] LABS: AMPHETAMINE/METHAMPHETAMINE NEG (NEG)
[2019-11-05 09:24] LABS: BACTERIA,URINE MANY /HPF (0-FEW); COLOR,URINE RED; RBC,URINE TNTC /HPF (0-2); SQUAMOUS EPITHELIAL CELL,UR FEW /LPF; WBC,URINE TNTC /HPF (0-4)
--- NOTE | 2019-11-05 09:56 | EKG ---
[facility] [address] [place] [address] Test Date: 2019-11-05 Test Time: 06:19:11 Pat Name: JOSSUE YOU Department: Room: Gender: F Medical Underwriter: : 1960 Requested By: SAMI LOCKE Order Number: [id number] Reading MD: Measurements Intervals Fertile Rate: 58 P: 39 VA: 134 QRS: 38 QRSD: 86 T: -15 QT: 374 QTc: 370 Interpretive Statements SINUS RHYTHM T ABNORMALITY IN ANTEROLATERAL LEADS INFEROLATERAL LEADS ABNORMAL ECG RI6.02 No previous ECG available for comparison
--- NOTE | 2019-11-05 12:02 | PDOC2 ---
NEUROLOGY CONSULT Date of Admission Date of Admission DATE: 11/05/19 TIME: 12:01 Reason for Consult Reason for Consult: Altered mental status Referring Physician Referring Physician: Dr. Rodriguez PCP: Dr. Watson Source Source: Caregiver, Chart review (Mother), Patient History of Present Illness History of Present Illness The patient is a 59-year-old right-handed female well known to me from her admission 16 days ago when she was admitted with altered mental status and aphasia, found a have an acute left frontal/insular infarct and additional small acute left frontoparietal and right parietal cortical infarcts, concerning for embolic etiology. A CT angiogram, transesophageal echocardiogram were negative, and a LINQ monitor was placed.She was here in July with a deep venous thrombosis and was started on Xaralto, but then developed severe vaginal bleeding and this was stopped. The patient resumed Eliquis after discharge. About a week ago she started developing headaches, so Dr. Watson Started amitriptyline. Last night, the patient was acting strangely, having jerking movements of her extremities. Her aphasia was worse and mother brought her in this morning. There is no prior history of seizures. Past Medical History Cardiovascular: Other (DVT) CENTRAL NERVOUS SYSTEM: CVA Heme/Onc: Anemia NOS Psych: Depression Renal/: Other (Vaginal bleeding) Past Surgical History Past Surgical History: Other (LINQ monitor) Family History Family History: Cancer Social History Social History Single, lives with mother, unemployed, no alcohol, tobacco, street drugs, recent deaths of cat and father Current Medications Current Medications Current Medications Benztropine Mesylate (Cogentin) 2 mg 1X STAT IM Last administered on 11/05/19at 08:26; Start 11/05/19 at 07:54; Stop 11/05/19 at 07:58; Status DC Ondansetron HCl (Zofran) 4 mg PRN Q8HRS PRN IV NAUSEA/VOMITING; Start 11/05/19 at 08:00; Stop 11/06/19 at 07:59 Acetaminophen (Tylenol) 650 mg PRN Q6HRS PRN PO TEMP > 100.4F; Start 11/05/19 at 09:00 Acetaminophen (Tylenol Supp) 650 mg PRN Q4HRS PRN VT TEMP > 100.4F; Start 11/05/19 at 09:00 Active Scripts Active Reported Midnite Chewable Tablet (Melatonin/Herbal No.233) 1 Each Tb.chw.dsp 1 Each PO HS Buspirone Hcl 10 Mg Tablet 1 Tab PO BID Eliquis (Apixaban) 2.5 Mg Tablet 2.5 Mg PO BID Allergies Allergies: Coded Allergies: No Known Drug Allergies (Unverified , 08/12/19) ROS Review of System Negative for fever, chills, weight loss, shortness of breath, chest pain, indigestion, hematochezia, melena, and dysuria. Full 14-point review of systems is negative. Physical Exam Physical Examination General: Well-developed, well-nourished white female in no acute distress HEENT: Normocephalic andatraumatic. Temporal arteriespulsatile and nontender. Neck: Supple without bruit, no meningismus Musculoskeletal: Stability:see neurologic. Gait exam:see neurologic. Tone:see neurologic.Strength:see neurologic. Neurological: Mental Status:intact, orientation, memory, attention span/concentration, language, fund of knowledge: she can tell me location, her name, says "I don't know" very clearly to several questions. Cranial Nerves:Pupils equal and reactive to light, extraocular movements areintact, visual wells are full to confrontation. Facial sensation is normal. There is no facial asymmetry. Vestibulo-ocular reflex is intact. Palate elevates and tongue protrudes in midline. All other cranial related problems are negative except as mentioned before.Reflexes:2+ and symmetric with flexor plantar responses. Motor:5/5 strength with normal tone and bulk. Coordination and gait: not cooperative. Sensory:Normal pinprick, vibration, light touch, proprioception. Vitals VITALS Vital Signs Date Time Temp Pulse Resp B/P (MAP) Pulse Ox O2 Delivery O2 Flow Rate FiO2 11/05/19 10:42 61 11/05/19 06:52 98 11/05/19 06:15 98.4 17 98.4 11/05/19 05:25 185/74 (111) Room Air Labs Labs Laboratory Tests Test 11/05/19 06:11 11/05/19 08:50 White Blood Count 6.9 x10^3/uL (4.0-11.0) Red Blood Count 4.91 x10^6/uL (3.50-5.40) Hemoglobin 12.4 g/dL (12.0-15.5) Hematocrit 38.7 % (36.0-47.0) Mean Corpuscular Volume 79 fL (79-100) Mean Corpuscular Hemoglobin 25 pg (25-35) Mean Corpuscular Hemoglobin Concent 32 g/dL (31-37) Red Cell Distribution Width 18.0 % (11.5-14.5) Platelet Count 206 x10^3/uL (140-400) Neutrophils (%) (Auto) 74 % (31-73) Lymphocytes (%) (Auto) 15 % (24-48) Monocytes (%) (Auto) 7 % (0-9) Eosinophils (%) (Auto) 3 % (0-3) Basophils (%) (Auto) 1 % (0-3) Neutrophils # (Auto) 5.1 x10^3/uL (1.8-7.7) Lymphocytes # (Auto) 1.0 x10^3/uL (1.0-4.8) Monocytes # (Auto) 0.5 x10^3/uL (0.0-1.1) Eosinophils # (Auto) 0.2 x10^3/uL (0.0-0.7) Basophils # (Auto) 0.1 x10^3/uL (0.0-0.2) Sodium Level 142 mmol/L (136-145) Potassium Level 4.0 mmol/L (3.5-5.1) Chloride Level 104 mmol/L (98-107) Carbon Dioxide Level 25 mmol/L (21-32) Anion Gap 13 (6-14) Blood Urea Nitrogen 15 mg/dL (7-20) Creatinine 1.2 mg/dL (0.6-1.0) Estimated GFR (Cockcroft-Gault) 46.0 BUN/Creatinine Ratio 13 (6-20) Glucose Level 102 mg/dL (70-99) Calcium Level 9.7 mg/dL (8.5-10.1) Magnesium Level 2.0 mg/dL (1.8-2.4) Total Bilirubin 0.3 mg/dL (0.2-1.0) Aspartate Amino Transf (AST/SGOT) 16 U/L (15-37) Alanine Aminotransferase (ALT/SGPT) 17 U/L (14-59) Alkaline Phosphatase 104 U/L (46-116) Ammonia < 10 mcmol/L (11-34) Total Protein 7.1 g/dL (6.4-8.2) Albumin 3.8 g/dL (3.4-5.0) Albumin/Globulin Ratio 1.2 (1.0-1.7) Ethyl Alcohol Level < 10 mg/dL (0-10) Urine Collection Type Unknown Urine Color Red Urine Clarity Cloudy Urine pH 6.5 (<5.0-8.0) Urine Specific Hurst 1.025 (1.000-1.030) Urine Protein 100 mg/dL (NEG-TRACE) Urine Glucose (UA) Negative mg/dL (NEG) Urine Ketones (Stick) Negative mg/dL (NEG) Urine Blood Large (NEG) Urine Nitrite Negative (NEG) Urine Bilirubin Negative (NEG) Urine Urobilinogen Dipstick 0.2 mg/dL (0.2 mg/dL) Urine Leukocyte Esterase Large (NEG) Urine RBC Tntc /HPF (0-2) Urine WBC Tntc /HPF (0-4) Urine Squamous Epithelial Cells Few /LPF Urine Bacteria Many /HPF (0-FEW) Urine Opiates Screen Neg (NEG) Urine Methadone Screen Neg (NEG) Urine Barbiturates Neg (NEG) Urine Phencyclidine Screen Neg (NEG) Urine Amphetamine/Methamphetamine Neg (NEG) Urine Benzodiazepines Screen Neg (NEG) Urine Cocaine Screen Neg (NEG) Urine Cannabinoids Screen Neg (NEG) Urine Ethyl Alcohol Neg (NEG) Laboratory Tests Test 11/05/19 06:11 11/05/19 08:50 White Blood Count 6.9 x10^3/uL (4.0-11.0) Red Blood Count 4.91 x10^6/uL (3.50-5.40) Hemoglobin 12.4 g/dL (12.0-15.5) Hematocrit 38.7 % (36.0-47.0) Mean Corpuscular Volume 79 fL (79-100) Mean Corpuscular Hemoglobin 25 pg (25-35) Mean Corpuscular Hemoglobin Concent 32 g/dL (31-37) Red Cell Distribution Width 18.0 % (11.5-14.5) Platelet Count 206 x10^3/uL (140-400) Neutrophils (%) (Auto) 74 % (31-73) Lymphocytes (%) (Auto) 15 % (24-48) Monocytes (%) (Auto) 7 % (0-9) Eosinophils (%) (Auto) 3 % (0-3) Basophils (%) (Auto) 1 % (0-3) Neutrophils # (Auto) 5.1 x10^3/uL (1.8-7.7) Lymphocytes # (Auto) 1.0 x10^3/uL (1.0-4.8) Monocytes # (Auto) 0.5 x10^3/uL (0.0-1.1) Eosinophils # (Auto) 0.2 x10^3/uL (0.0-0.7) Basophils # (Auto) 0.1 x10^3/uL (0.0-0.2) Sodium Level 142 mmol/L (136-145) Potassium Level 4.0 mmol/L (3.5-5.1) Chloride Level 104 mmol/L (98-107) Carbon Dioxide Level 25 mmol/L (21-32) Anion Gap 13 (6-14) Blood Urea Nitrogen 15 mg/dL (7-20) Creatinine 1.2 mg/dL (0.6-1.0) Estimated GFR (Cockcroft-Gault) 46.0 BUN/Creatinine Ratio 13 (6-20) Glucose Level 102 mg/dL (70-99) Calcium Level 9.7 mg/dL (8.5-10.1) Magnesium Level 2.0 mg/dL (1.8-2.4) Total Bilirubin 0.3 mg/dL (0.2-1.0) Aspartate Amino Transf (AST/SGOT) 16 U/L (15-37) Alanine Aminotransferase (ALT/SGPT) 17 U/L (14-59) Alkaline Phosphatase 104 U/L (46-116) Ammonia < 10 mcmol/L (11-34) Total Protein 7.1 g/dL (6.4-8.2) Albumin 3.8 g/dL (3.4-5.0) Albumin/Globulin Ratio 1.2 (1.0-1.7) Ethyl Alcohol Level < 10 mg/dL (0-10) Urine Collection Type Unknown Urine Color Red Urine Clarity Cloudy Urine pH 6.5 (<5.0-8.0) Urine Specific Hurst 1.025 (1.000-1.030) Urine Protein 100 mg/dL (NEG-TRACE) Urine Glucose (UA) Negative mg/dL (NEG) Urine Ketones (Stick) Negative mg/dL (NEG) Urine Blood Large (NEG) Urine Nitrite Negative (NEG) Urine Bilirubin Negative (NEG) Urine Urobilinogen Dipstick 0.2 mg/dL (0.2 mg/dL) Urine Leukocyte Esterase Large (NEG) Urine RBC Tntc /HPF (0-2) Urine WBC Tntc /HPF (0-4) Urine Squamous Epithelial Cells Few /LPF Urine Bacteria Many /HPF (0-FEW) Urine Opiates Screen Neg (NEG) Urine Methadone Screen Neg (NEG) Urine Barbiturates Neg (NEG) Urine Phencyclidine Screen Neg (NEG) Urine Amphetamine/Methamphetamine Neg (NEG) Urine Benzodiazepines Screen Neg (NEG) Urine Cocaine Screen Neg (NEG) Urine Cannabinoids Screen Neg (NEG) Urine Ethyl Alcohol Neg (NEG) Images Images CT Head without IV contrast INDICATION: Reason: ams-NOT READY @545 / Spl. Instructions: / History: TECHNIQUE: Multi-detector row CT images were obtained of the head without the use of IV contrast. All CT scans performed at this facility utilize dose optimization techniques as appropriate to the exam, including the following: Automated exposure control and adjustment of the mA and/or KV according to patient size (this includes techniques or standardized protocols for targeted exams where dose is indication/reason for exam). COMPARISON: None FINDINGS: BRAIN PARENCHYMA: No evidence of acute intraparenchymal hemorrhage or infarct. No abnormal parenchymal density or mass. VENTRICLES & EXTRA-AXIAL SPACES: Ventricles are within normal limits. Basilar cisterns are patent. No pathologic extra-axial fluid collection or mass. ORBITS: Orbital contents are unremarkable. SINUSES: Visualized paranasal sinuses and mastoid air cells are clear. OSSEOUS & SOFT TISSUES: Calvarium and skull base are intact. IMPRESSION: No acute intracranial pathology. Assessment/Plan Assessment/Plan Impression: Possible recurrent stroke symptoms, but I think a dystonic reaction from the amitriptyline is more likely. 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 Hyperlipidemia, we started statin last time Prior psychiatric disease Possible migraines Recommendations: Repeat brain MRI Cardiology consult requested to follow up on the LINQ monitoring. Hold on repeating other studies done just 16 days ago Continue aspirin, Eliquis, statin Discussed with mother. Thank you for letting me help with the patient's care. CARRIE TO MD Nov 05, 2019 12:02
--- NOTE | 2019-11-05 12:17 | PDOC1 ---
History and Physical Date of Admission: Date of Admission DATE: 11/05/19 TIME: 12:13 Chief Complaint: Problems: (1) Expressive aphasia (2) Headache Chief Complain: Possible stroke symptoms History of Present Illness: HPI: This is a 59-year-old female who presented to the ER with headaches and weakness and confusion This all started about 7 PM yesterday Apparently she was given some amitriptyline a couple days ago and she thinks she may have had a reaction to that She did have a recent stroke on October 20 which left her with some right-sided weakness and expressive aphasia Rates her symptoms as 7 out of 10 Worse with moving better with sitting still I discussed the case with ER physician were going to meet the patient and consult Dr. Sinclair Past Medical/Surgical History: PMH/PSH: Past Medical History: Anemia, Anxiety, High Cholesterol, Stroke, Other Additional Past Medical Histor: leg blood clots, blood thinners, vag bleeding Past Surgical History: No Surgical History Smoking Status: Never Smoker Alcohol Use: None Allergies: Allergies: Coded Allergies: No Known Drug Allergies (Unverified , 08/12/19) Family History: Family History: Hypertension and strokes Social History: Social History: She does not drink smoke or take drugs Current Medications: Current Medications Current Medications Benztropine Mesylate (Cogentin) 2 mg 1X STAT IM Last administered on 11/05/19at 08:26; Start 11/05/19 at 07:54; Stop 11/05/19 at 07:58; Status DC Ondansetron HCl (Zofran) 4 mg PRN Q8HRS PRN IV NAUSEA/VOMITING; Start 11/05/19 at 08:00; Stop 11/06/19 at 07:59 Acetaminophen (Tylenol) 650 mg PRN Q6HRS PRN PO TEMP > 100.4F; Start 11/05/19 at 09:00 Acetaminophen (Tylenol Supp) 650 mg PRN Q4HRS PRN DC TEMP > 100.4F; Start 11/05/19 at 09:00 Active Scripts Active Reported Midnite Chewable Tablet (Melatonin/Herbal No.233) 1 Each Tb.chw.dsp 1 Each PO HS Buspirone Hcl 10 Mg Tablet 1 Tab PO BID Eliquis (Apixaban) 2.5 Mg Tablet 2.5 Mg PO BID ROS: Review of Systems Review of System REVIEW OF SYSTEMS: GENERAL: Denies weakness SKIN: No bruising, hair changes or rashes. EYES: No blurred, double or loss of vision. NOSE AND THROAT: No history of nosebleeds, hoarseness or sore throat. HEART: No history of palpitations, chest pain or shortness of breath on exertion. LUNGS: Denies cough, hemoptysis, wheezing or shortness of breath. GASTROINTESTINAL: Denies changes in appetite, nausea, vomiting, diarrhea or constipation. GENITOURINARY: No history of frequency, urgency, hesitancy or nocturia. NEUROLOGIC: Per her family the patient has been complaining of headache weakness and insomnia and confusion PSYCHIATRIC: No history of panic, anxiety or depression. ENDOCRINE: No history of heat or cold intolerance, polyuria or polydipsia. EXTREMITIES: Denies joint pain, pain on walking or stiffness. Physical Exam: Vital Signs: Vital Signs Date Time Temp Pulse Resp B/P (MAP) Pulse Ox O2 Delivery O2 Flow Rate FiO2 11/05/19 10:42 61 11/05/19 06:52 98 11/05/19 06:15 98.4 17 98.4 11/05/19 05:25 185/74 (111) Room Air Physcial Exam: GEN: Very weak does not talk much HEENT: Normal cephalic, atraumatic, external auditory canals are patent EYES: Extraocular muscles are intact, pupil are equally round and reactive to light and accommodation MUSCULOSKELETAL: Well developed , well nourished, good range of motion ENDOCRINE: No thyromegaly was palpated LYMPHATICS: No cervical chain or axillary nodes were noted HEMATOPOIETIC: No bruising NECK: Supple, no JVD, no thyromegaly was noted LUNGS: Clear to auscultation in all lung wells without rhonchi or wheezing HEART: RRR, S!, S2 present. Peripheral pulses intact, no obvious murmurs noted ABDOMEN: Soft, nontender. Positive bowel sounds, no organomegaly, normal bowel sounds EXTREMITIES: Without clubbing, cyanosis, or edema. Pedal pulses intact. Negative Homans sign NEUROLOGIC: Extremely weak not talking currently PSYCHIATRIC: Seems depressed SKIN: No ulcerations or rashes, good skin turgor, no jaundice VASCULAR: Good capillary refill, neurovascular bundle appears to be intact Labs: Labs: Laboratory Tests Test 11/05/19 06:11 11/05/19 08:50 White Blood Count 6.9 x10^3/uL (4.0-11.0) Red Blood Count 4.91 x10^6/uL (3.50-5.40) Hemoglobin 12.4 g/dL (12.0-15.5) Hematocrit 38.7 % (36.0-47.0) Mean Corpuscular Volume 79 fL (79-100) Mean Corpuscular Hemoglobin 25 pg (25-35) Mean Corpuscular Hemoglobin Concent 32 g/dL (31-37) Red Cell Distribution Width 18.0 % (11.5-14.5) Platelet Count 206 x10^3/uL (140-400) Neutrophils (%) (Auto) 74 % (31-73) Lymphocytes (%) (Auto) 15 % (24-48) Monocytes (%) (Auto) 7 % (0-9) Eosinophils (%) (Auto) 3 % (0-3) Basophils (%) (Auto) 1 % (0-3) Neutrophils # (Auto) 5.1 x10^3/uL (1.8-7.7) Lymphocytes # (Auto) 1.0 x10^3/uL (1.0-4.8) Monocytes # (Auto) 0.5 x10^3/uL (0.0-1.1) Eosinophils # (Auto) 0.2 x10^3/uL (0.0-0.7) Basophils # (Auto) 0.1 x10^3/uL (0.0-0.2) Sodium Level 142 mmol/L (136-145) Potassium Level 4.0 mmol/L (3.5-5.1) Chloride Level 104 mmol/L (98-107) Carbon Dioxide Level 25 mmol/L (21-32) Anion Gap 13 (6-14) Blood Urea Nitrogen 15 mg/dL (7-20) Creatinine 1.2 mg/dL (0.6-1.0) Estimated GFR (Cockcroft-Gault) 46.0 BUN/Creatinine Ratio 13 (6-20) Glucose Level 102 mg/dL (70-99) Calcium Level 9.7 mg/dL (8.5-10.1) Magnesium Level 2.0 mg/dL (1.8-2.4) Total Bilirubin 0.3 mg/dL (0.2-1.0) Aspartate Amino Transf (AST/SGOT) 16 U/L (15-37) Alanine Aminotransferase (ALT/SGPT) 17 U/L (14-59) Alkaline Phosphatase 104 U/L (46-116) Ammonia < 10 mcmol/L (11-34) Total Protein 7.1 g/dL (6.4-8.2) Albumin 3.8 g/dL (3.4-5.0) Albumin/Globulin Ratio 1.2 (1.0-1.7) Ethyl Alcohol Level < 10 mg/dL (0-10) Urine Collection Type Unknown Urine Color Red Urine Clarity Cloudy Urine pH 6.5 (<5.0-8.0) Urine Specific [place] 1.025 (1.000-1.030) Urine Protein 100 mg/dL (NEG-TRACE) Urine Glucose (UA) Negative mg/dL (NEG) Urine Ketones (Stick) Negative mg/dL (NEG) Urine Blood Large (NEG) Urine Nitrite Negative (NEG) Urine Bilirubin Negative (NEG) Urine Urobilinogen Dipstick 0.2 mg/dL (0.2 mg/dL) Urine Leukocyte Esterase Large (NEG) Urine RBC Tntc /HPF (0-2) Urine WBC Tntc /HPF (0-4) Urine Squamous Epithelial Cells Few /LPF Urine Bacteria Many /HPF (0-FEW) Urine Opiates Screen Neg (NEG) Urine Methadone Screen Neg (NEG) Urine Barbiturates Neg (NEG) Urine Phencyclidine Screen Neg (NEG) Urine Amphetamine/Methamphetamine Neg (NEG) Urine Benzodiazepines Screen Neg (NEG) Urine Cocaine Screen Neg (NEG) Urine Cannabinoids Screen Neg (NEG) Urine Ethyl Alcohol Neg (NEG) Laboratory Tests Test 11/05/19 06:11 11/05/19 08:50 White Blood Count 6.9 x10^3/uL (4.0-11.0) Red Blood Count 4.91 x10^6/uL (3.50-5.40) Hemoglobin 12.4 g/dL (12.0-15.5) Hematocrit 38.7 % (36.0-47.0) Mean Corpuscular Volume 79 fL (79-100) Mean Corpuscular Hemoglobin 25 pg (25-35) Mean Corpuscular Hemoglobin Concent 32 g/dL (31-37) Red Cell Distribution Width 18.0 % (11.5-14.5) Platelet Count 206 x10^3/uL (140-400) Neutrophils (%) (Auto) 74 % (31-73) Lymphocytes (%) (Auto) 15 % (24-48) Monocytes (%) (Auto) 7 % (0-9) Eosinophils (%) (Auto) 3 % (0-3) Basophils (%) (Auto) 1 % (0-3) Neutrophils # (Auto) 5.1 x10^3/uL (1.8-7.7) Lymphocytes # (Auto) 1.0 x10^3/uL (1.0-4.8) Monocytes # (Auto) 0.5 x10^3/uL (0.0-1.1) Eosinophils # (Auto) 0.2 x10^3/uL (0.0-0.7) Basophils # (Auto) 0.1 x10^3/uL (0.0-0.2) Sodium Level 142 mmol/L (136-145) Potassium Level 4.0 mmol/L (3.5-5.1) Chloride Level 104 mmol/L (98-107) Carbon Dioxide Level 25 mmol/L (21-32) Anion Gap 13 (6-14) Blood Urea Nitrogen 15 mg/dL (7-20) Creatinine 1.2 mg/dL (0.6-1.0) Estimated GFR (Cockcroft-Gault) 46.0 BUN/Creatinine Ratio 13 (6-20) Glucose Level 102 mg/dL (70-99) Calcium Level 9.7 mg/dL (8.5-10.1) Magnesium Level 2.0 mg/dL (1.8-2.4) Total Bilirubin 0.3 mg/dL (0.2-1.0) Aspartate Amino Transf (AST/SGOT) 16 U/L (15-37) Alanine Aminotransferase (ALT/SGPT) 17 U/L (14-59) Alkaline Phosphatase 104 U/L (46-116) Ammonia < 10 mcmol/L (11-34) Total Protein 7.1 g/dL (6.4-8.2) Albumin 3.8 g/dL (3.4-5.0) Albumin/Globulin Ratio 1.2 (1.0-1.7) Ethyl Alcohol Level < 10 mg/dL (0-10) Urine Collection Type Unknown Urine Color Red Urine Clarity Cloudy Urine pH 6.5 (<5.0-8.0) Urine Specific [place] 1.025 (1.000-1.030) Urine Protein 100 mg/dL (NEG-TRACE) Urine Glucose (UA) Negative mg/dL (NEG) Urine Ketones (Stick) Negative mg/dL (NEG) Urine Blood Large (NEG) Urine Nitrite Negative (NEG) Urine Bilirubin Negative (NEG) Urine Urobilinogen Dipstick 0.2 mg/dL (0.2 mg/dL) Urine Leukocyte Esterase Large (NEG) Urine RBC Tntc /HPF (0-2) Urine WBC Tntc /HPF (0-4) Urine Squamous Epithelial Cells Few /LPF Urine Bacteria Many /HPF (0-FEW) Urine Opiates Screen Neg (NEG) Urine Methadone Screen Neg (NEG) Urine Barbiturates Neg (NEG) Urine Phencyclidine Screen Neg (NEG) Urine Amphetamine/Methamphetamine Neg (NEG) Urine Benzodiazepines Screen Neg (NEG) Urine Cocaine Screen Neg (NEG) Urine Cannabinoids Screen Neg (NEG) Urine Ethyl Alcohol Neg (NEG) Assessment/Plan Assessment/Plan Stroke symptoms Plan We are going to consult Dr. Sinclair Suspect she will need an MRI Home meds DVT prophylaxis Full code PT OT and speech therapy Stop the amitriptyline Long-term prognosis guarded Justicifation of Admission Dx: Justifications for Admission: Justification of Admission Dx: Yes Stroke - Ischemic: Stroke-Ischemic Altered Mental Status: Altered Mental Status DEEPALI DIAZ III DO Nov 05, 2019 12:17
--- NOTE | 2019-11-05 14:34 | RAD ---
BRAIN W/O CONTRAST History:Reason: recurrent stroke sx, compare to study from 3 weeks ago, / Spl. Instructions: / History: Technique: Multiplanar, multi sequential MR imaging was performed of the brain without contrast. Comparison: November 05, 2019 Findings: The patient was unable to complete the examination. Severely motion degraded FLAIR sequence. Diffusion weighted imaging, sagittal T1 and axial T2 imaging were obtained. Acute right parietal occipital and posterior temporal infarct. Small focal acute left occipital lobe infarcts. Punctate acute left frontal infarct (series 4 image 21). Punctate acute right frontal infarct (image 23). Evolving left frontal parietal infarcts. Evolving infarcts within the right posterior parietal lobe. Cortical laminar necrosis in the left frontal and right posterior parietal lobes. Partially empty sella, often incidental, unchanged. Imaged orbits are unremarkable. Imaged paranasal sinuses and mastoid air cells are clear. Impression: 1. Acute right posterior cerebral infarct. 2. Additional small acute infarcts bilaterally, as described. Findings raise concern for embolic etiology. 3. Evolving left frontoparietal and right parietal infarcts. FOR INTERNAL CODING PURPOSES Critical result: Findings discussed with patient's nurse at 11/05/2019 2:24 PM. RESULT CODE: (C) Electronically signed by: Michael Bowen DO (11/05/2019 2:31 PM) [id number]
[2019-11-05] MEDS ORDERED: hydrALAZINE 20 MG/ML VIAL. IVP PRN (14:45)
--- NOTE | 2019-11-05 14:52 | PDOC2 ---
CARDIAC CONSULT DATE OF CONSULT Date of Consult DATE: 11/05/19 TIME: 14:35 REASON FOR CONSULT Reason for Consult: Follow up linq, possible new CVA REFERRING PHYSICIAN Referring Physician: Minna SOURCE Source: Chart review, Patient HISTORY OF PRESENT ILLNESS HISTORY OF PRESENT ILLNESS This is a 59 yo female admitted for neuro symptoms. She notified her mother that something is not right. She was noted by her mother that she was acting weak and having tremors and there were times that she could not utter a word and acting confused. There was also a point when she was in the car that she was being moved but she could not be moved. Her mother though that elavil that she took Sunday and Sunday both at very low dose may have something to do with her symptoms. She did have multifocal stroke from about 2 weeks ago and had an unremarkable DMITRI and an ILR was placed. Her BP at home per her mother is normal Presently she is not in any distress. At this time there is no noted visual impairment and cooperative. PAST MEDICAL HISTORY Cardiovascular: Hyperlipidemia Heme/Onc: Anemia NOS, Other (DVT) Psych: Anxiety Musculoskeletal: Osteoarthritis Renal/: UTI, Other (vaginal bleeding) PAST SURGICAL HISTORY Past Surgical History: Other (D & C; ILR placement) FAMILY HISTORY Family History: Other (noncontributory to CV) SOCIAL HISTORY Smoke: No ALCOHOL: none Drugs: None Lives: with Family CURRENT MEDICATIONS CURRENT MEDICATIONS Current Medications Medications (Trade) Dose Ordered Sig/Willow Route PRN Reason Start Time Stop Time Status Last Admin Dose Admin Benztropine Mesylate (Cogentin) 2 mg 1X STAT IM 11/05/19 07:54 11/05/19 07:58 DC 11/05/19 08:26 ALLERGIES ALLERGIES: Coded Allergies: No Known Drug Allergies (Unverified , 08/12/19) ROS Review of System 14 point ROS evaluated with pertinent positives noted per HPI PHYSICAL EXAM General: Alert, Cooperative, No acute distress HEENT: Atraumatic, Mucous membr. moist/pink Lungs: Clear to auscultation, Normal air movement Heart: Regular rate (SR), Normal S1, Normal S2, No murmurs Abdomen: Soft, No tenderness, Other (obese) Extremities: No cyanosis, No edema Skin: No breakdown, No significant lesion Neuro: Sensation intact, Other (aphasia) Psych/Mental Status: Other (flat affect) MUSCULOSKELETAL: Full range of motion without pain VITALS/I&O VITALS/I&O: Vital Signs Date Time Temp Pulse Resp B/P (MAP) Pulse Ox O2 Delivery O2 Flow Rate FiO2 11/05/19 10:42 61 11/05/19 06:52 98 11/05/19 06:15 98.4 17 98.4 11/05/19 05:25 185/74 (111) Room Air LABS Lab: Laboratory Tests Test 11/05/19 06:11 11/05/19 08:50 White Blood Count 6.9 x10^3/uL (4.0-11.0) Red Blood Count 4.91 x10^6/uL (3.50-5.40) Hemoglobin 12.4 g/dL (12.0-15.5) Hematocrit 38.7 % (36.0-47.0) Mean Corpuscular Volume 79 fL (79-100) Mean Corpuscular Hemoglobin 25 pg (25-35) Mean Corpuscular Hemoglobin Concent 32 g/dL (31-37) Red Cell Distribution Width 18.0 % (11.5-14.5) H Platelet Count 206 x10^3/uL (140-400) Neutrophils (%) (Auto) 74 % (31-73) H Lymphocytes (%) (Auto) 15 % (24-48) L Monocytes (%) (Auto) 7 % (0-9) Eosinophils (%) (Auto) 3 % (0-3) Basophils (%) (Auto) 1 % (0-3) Neutrophils # (Auto) 5.1 x10^3/uL (1.8-7.7) Lymphocytes # (Auto) 1.0 x10^3/uL (1.0-4.8) Monocytes # (Auto) 0.5 x10^3/uL (0.0-1.1) Eosinophils # (Auto) 0.2 x10^3/uL (0.0-0.7) Basophils # (Auto) 0.1 x10^3/uL (0.0-0.2) Sodium Level 142 mmol/L (136-145) Potassium Level 4.0 mmol/L (3.5-5.1) Chloride Level 104 mmol/L (98-107) Carbon Dioxide Level 25 mmol/L (21-32) Anion Gap 13 (6-14) Blood Urea Nitrogen 15 mg/dL (7-20) Creatinine 1.2 mg/dL (0.6-1.0) H Estimated GFR (Cockcroft-Gault) 46.0 BUN/Creatinine Ratio 13 (6-20) Glucose Level 102 mg/dL (70-99) H Calcium Level 9.7 mg/dL (8.5-10.1) Magnesium Level 2.0 mg/dL (1.8-2.4) Total Bilirubin 0.3 mg/dL (0.2-1.0) Aspartate Amino Transferase (AST) 16 U/L (15-37) Alanine Aminotransferase (ALT) 17 U/L (14-59) Alkaline Phosphatase 104 U/L (46-116) Ammonia < 10 mcmol/L (11-34) L Total Protein 7.1 g/dL (6.4-8.2) Albumin 3.8 g/dL (3.4-5.0) Albumin/Globulin Ratio 1.2 (1.0-1.7) Ethyl Alcohol Level < 10 mg/dL (0-10) Urine Collection Type Unknown Urine Color Red Urine Clarity Cloudy Urine pH 6.5 (<5.0-8.0) Urine Specific [place] 1.025 (1.000-1.030) Urine Protein 100 mg/dL (NEG-TRACE) Urine Glucose (UA) Negative mg/dL (NEG) Urine Ketones (Stick) Negative mg/dL (NEG) Urine Blood Large (NEG) Urine Nitrite Negative (NEG) Urine Bilirubin Negative (NEG) Urine Urobilinogen Dipstick 0.2 mg/dL (0.2 mg/dL) Urine Leukocyte Esterase Large (NEG) Urine RBC Tntc /HPF (0-2) Urine WBC Tntc /HPF (0-4) Urine Squamous Epithelial Cells Few /LPF Urine Bacteria Many /HPF (0-FEW) Urine Opiates Screen Neg (NEG) Urine Methadone Screen Neg (NEG) Urine Barbiturates Neg (NEG) Urine Phencyclidine Screen Neg (NEG) Urine Amphetamine/Methamphetamine Neg (NEG) Urine Benzodiazepines Screen Neg (NEG) Urine Cocaine Screen Neg (NEG) Urine Cannabinoids Screen Neg (NEG) Urine Ethyl Alcohol Neg (NEG) Laboratory Tests 11/05/19 06:11 Laboratory Tests 11/05/19 06:11 ECHOCARDIOGRAM ECHOCARDIOGRAM DMITRI <Conclusion> The left ventricle is normal size. The left ventricular systolic function is normal and the ejection fraction is within normal range. The Ejection Fraction is 55-60%. The interatrial septum is intact with no evidence for an atrial septal defect or patent foramen ovale as noted on 2-D or Doppler imaging. Injection of bubbles documented no interatrial shunt. There is no thrombus noted in the left atrial appendage. Doppler and Color Flow revealed mild aortic regurgitation. There is no significant aortic valvular stenosis. Doppler and Color-flow revealed mild mitral regurgitation. Doppler and Color Flow revealed no tricuspid valve regurgitation noted. Signed by : Makeda Hendrix MD Electronically Approved : 10/23/2019 16:56:37 DICTATED and SIGNED BY: MAKEDA HENDRIX MD DATE: 10/23/19 1945 ASSESSMENT/PLAN ASSESSMENT/PLAN 1. Acute CVA: Possibly embolic in etiology noted per MRI. prior cryptogenic stroke 2. HTN urgency 3. HLP: on lipitor at home 4. Recent Hx of DVT with IVC filter 5. Morbid obesity 6. ILR in situ: BIotronik. SR and SB lowest 50s. 7. UTI: per PCP 8. Encephalopathy/aphasia 9. Vaginal bleeding Recommendations 1. Prior DMITRI reviewed. I reviewed her ILR strips and so far there is no definitive evidence of AFIB. Presently she is on ASA 81 mg and low dose eliquis. Given the nature of her stroke and also with her heavy wt she would benefit to increasing eliquis to 5 bid when OK with neurology but will need to monitor her vaginal bleed and trend Hgb as she still has daily spotting issues accdg to her mother. I did discussed with neurology in regards to eliquis and for now will continue with baby ASA and low dose eliquis. Would benefit further input from [employer] LEADER. 2. Will consult CM/SS for assistance in getting disability coverage. 3. Hydralazine IV PRN. Restart home lipitor. 4. Supportive care. NICOLASA INGRAM JEWELRY SALES REPRESENTATIVE Nov 05, 2019 14:52
[2019-11-05] MEDS: AMINO AC 3%/ELECTROLYTE/GLYCER 1,000 ML IV SCH (17:45)
[2019-11-05 18:58] VITALS: BP 154/73
[2019-11-05] MEDS: busPIRone 10 MG TABLET. PO SCH (20:18)
[2019-11-05] MEDS: APIXABAN 2.5 MG TABLET. PO SCH (20:19)
[2019-11-05] MEDS: ATORVASTATIN CALCIUM 40 MG TABLET. PO SCH (20:19)
[2019-11-05 22:42] VITALS: BP 132/62
[2019-11-06 03:08] VITALS: BP 139/58
[2019-11-06 07:52] VITALS: BP 137/64
[2019-11-06] MEDS: ASPIRIN ENTERIC COATED 81 MG TABLET.DR. PO SCH ×2 (08:00→09:49)
[2019-11-06] MEDS: APIXABAN 2.5 MG TABLET. PO SCH ×3 (08:31→21:18)
[2019-11-06] MEDS: busPIRone 10 MG TABLET. PO SCH ×3 (08:31→21:17)
[2019-11-06] MEDS: AMINO AC 3%/ELECTROLYTE/GLYCER 1,000 ML IV SCH (08:36)
--- NOTE | 2019-11-06 09:05 | PDOC ---
PROGRESS NOTES Chief Complaint Chief Complaint A/P: Acute CVA - recurrent, appears embolic, however had DMITIR and ILR placed recently, no afib or obvious clots. H/o Acute DVT - s/p inferior vena cava filter placement 08/10/2019, on eliquis BID H/o Postmenopausal bleeding. Appreciate Gynecology consultation and further management per Gynecology. History of Present Illness History of Present Illness Ms Mack is a 59yo F w/ PMHx DVT, diagnosed on 08/04/2019, and subsequent vaginal bleeding s/p IVC filter, and recent CVA on 10/21/2019 who presented to the ER with headaches and weakness and confusion This all started about 7 PM 11/04/2019. Started amitriptyline a couple days ago and she thinks she may have had a reaction to that, however did have a recent stroke on October 20 which left her with some right-sided weakness and expressive aphasia. Found on MRI to have Acute right posterior cerebral infarct and evolution of prior left sided frontoparietal infarcts. Seen with sister and mother bedside. Able to swallow bedside for me. Unsteady on her feet today, a bit confused and drowsy. Plan: Increase eliquis to 5mg BID Full dose ASA? Vitals Vitals Vital Signs Date Time Temp Pulse Resp B/P (MAP) Pulse Ox O2 Delivery O2 Flow Rate FiO2 11/06/19 07:52 98.7 65 18 137/64 (88) 96 Room Air 98.7 Physical Exam General: Alert, Cooperative, No acute distress Heart: Regular rate (SR), Normal S1, Normal S2, No murmurs Lungs: Clear Abdomen: Soft, No tenderness, Other (obese) Extremities: No cyanosis, No edema Skin: No breakdown, No significant lesion Assessment and Plan Assessmemt and Plan Problems Medical Problems: (1) Expressive aphasia Status: Acute (2) Headache Status: Acute Comment Review of Relevant I have reviewed the following items gloria (where applicable) has been applied. Labs Laboratory Tests Test 11/05/19 06:11 11/05/19 08:50 White Blood Count 6.9 x10^3/uL (4.0-11.0) Red Blood Count 4.91 x10^6/uL (3.50-5.40) Hemoglobin 12.4 g/dL (12.0-15.5) Hematocrit 38.7 % (36.0-47.0) Mean Corpuscular Volume 79 fL (79-100) Mean Corpuscular Hemoglobin 25 pg (25-35) Mean Corpuscular Hemoglobin Concent 32 g/dL (31-37) Red Cell Distribution Width 18.0 % (11.5-14.5) Platelet Count 206 x10^3/uL (140-400) Neutrophils (%) (Auto) 74 % (31-73) Lymphocytes (%) (Auto) 15 % (24-48) Monocytes (%) (Auto) 7 % (0-9) Eosinophils (%) (Auto) 3 % (0-3) Basophils (%) (Auto) 1 % (0-3) Neutrophils # (Auto) 5.1 x10^3/uL (1.8-7.7) Lymphocytes # (Auto) 1.0 x10^3/uL (1.0-4.8) Monocytes # (Auto) 0.5 x10^3/uL (0.0-1.1) Eosinophils # (Auto) 0.2 x10^3/uL (0.0-0.7) Basophils # (Auto) 0.1 x10^3/uL (0.0-0.2) Sodium Level 142 mmol/L (136-145) Potassium Level 4.0 mmol/L (3.5-5.1) Chloride Level 104 mmol/L (98-107) Carbon Dioxide Level 25 mmol/L (21-32) Anion Gap 13 (6-14) Blood Urea Nitrogen 15 mg/dL (7-20) Creatinine 1.2 mg/dL (0.6-1.0) Estimated GFR (Cockcroft-Gault) 46.0 BUN/Creatinine Ratio 13 (6-20) Glucose Level 102 mg/dL (70-99) Calcium Level 9.7 mg/dL (8.5-10.1) Magnesium Level 2.0 mg/dL (1.8-2.4) Total Bilirubin 0.3 mg/dL (0.2-1.0) Aspartate Amino Transf (AST/SGOT) 16 U/L (15-37) Alanine Aminotransferase (ALT/SGPT) 17 U/L (14-59) Alkaline Phosphatase 104 U/L (46-116) Ammonia < 10 mcmol/L (11-34) Total Protein 7.1 g/dL (6.4-8.2) Albumin 3.8 g/dL (3.4-5.0) Albumin/Globulin Ratio 1.2 (1.0-1.7) Ethyl Alcohol Level < 10 mg/dL (0-10) Urine Collection Type Unknown Urine Color Red Urine Clarity Cloudy Urine pH 6.5 (<5.0-8.0) Urine Specific [place] 1.025 (1.000-1.030) Urine Protein 100 mg/dL (NEG-TRACE) Urine Glucose (UA) Negative mg/dL (NEG) Urine Ketones (Stick) Negative mg/dL (NEG) Urine Blood Large (NEG) Urine Nitrite Negative (NEG) Urine Bilirubin Negative (NEG) Urine Urobilinogen Dipstick 0.2 mg/dL (0.2 mg/dL) Urine Leukocyte Esterase Large (NEG) Urine RBC Tntc /HPF (0-2) Urine WBC Tntc /HPF (0-4) Urine Squamous Epithelial Cells Few /LPF Urine Bacteria Many /HPF (0-FEW) Urine Opiates Screen Neg (NEG) Urine Methadone Screen Neg (NEG) Urine Barbiturates Neg (NEG) Urine Phencyclidine Screen Neg (NEG) Urine Amphetamine/Methamphetamine Neg (NEG) Urine Benzodiazepines Screen Neg (NEG) Urine Cocaine Screen Neg (NEG) Urine Cannabinoids Screen Neg (NEG) Urine Ethyl Alcohol Neg (NEG) Medications Current Medications Benztropine Mesylate (Cogentin) 2 mg 1X STAT IM Last administered on 11/05/19at 08:26; Start 11/05/19 at 07:54; Stop 11/05/19 at 07:58; Status DC Ondansetron HCl (Zofran) 4 mg PRN Q8HRS PRN IV NAUSEA/VOMITING; Start 11/05/19 at 08:00; Stop 11/06/19 at 07:59; Status DC Acetaminophen (Tylenol) 650 mg PRN Q6HRS PRN PO TEMP > 100.4F; Start 11/05/19 at 09:00 Acetaminophen (Tylenol Supp) 650 mg PRN Q4HRS PRN IN TEMP > 100.4F; Start 11/05/19 at 09:00 Apixaban (Eliquis) 2.5 mg BID PO ; Start 11/05/19 at 21:00 Buspirone HCl (Buspar) 10 mg BID PO ; Start 11/05/19 at 21:00 Atorvastatin Calcium (Lipitor) 80 mg QHS PO ; Start 11/05/19 at 21:00 Aspirin (Ecotrin) 81 mg DAILYWBKFT PO ; Start 11/06/19 at 08:00 Hydralazine HCl (Apresoline Inj) 10 mg PRN Q4HRS PRN IVP ELEVATED BP, SEE COMMENTS; Start 11/05/19 at 14:45 Amino Acids/ Glycerin/ Electrolytes 1,000 ml @ 75 mls/hr [id number] IV Last administered on 11/06/19at 08:36; Start 11/05/19 at 17:45 Active Scripts Active Reported Midnite Chewable Tablet (Melatonin/Herbal No.233) 1 Each Tb.chw.dsp 1 Each PO HS Buspirone Hcl 10 Mg Tablet 1 Tab PO BID Eliquis (Apixaban) 2.5 Mg Tablet 2.5 Mg PO BID Vitals/I & O Vital Sign - Last 24 Hours 11/05/19 11/05/19 11/05/19 11/05/19 10:42 17:56 18:58 20:00 Temp 98.3 98.3 Pulse 61 58 Resp 17 B/P (MAP) 154/73 (100) Pulse Ox 96 O2 Delivery Room Air Room Air Room Air 11/05/19 11/06/19 11/06/19 22:42 03:08 07:52 Temp 98.9 98.9 98.7 98.9 98.9 98.7 Pulse 60 61 65 Resp 20 18 18 B/P (MAP) 132/62 (85) 139/58 (85) 137/64 (88) Pulse Ox 97 97 96 O2 Delivery Room Air Room Air Room Air Intake and Output 11/05/19 11/05/19 11/06/19 15:00 23:00 07:00 Intake Total 0 ml 0 ml Balance 0 ml 0 ml Images MRI: 1. Acute right posterior cerebral infarct. 2. Additional small acute infarcts bilaterally, as described. Findings raise concern for embolic etiology. 3. Evolving left frontoparietal and right parietal infarcts. Justicifation of Admission Dx: Justifications for Admission: Justification of Admission Dx: Yes Stroke - Ischemic: Stroke-Ischemic Altered Mental Status: Altered Mental Status CIRO BRANDT MD Nov 06, 2019 09:05
--- NOTE | 2019-11-06 09:27 | PDOC2 ---
CONSULT Date of Consult Date of Consult DATE: 11/06/19 TIME: 09:25 Reason for Consult Reason for Consult: Continued vaginal bleeding History of Present Illness Reason for Visit: The pt is a 59y G0 who presented to the ER with headache, weakness, confusion, not able to speak. The pt was evaluated here on October 21, 2019, diagnosed with acute stroke, has residual right-sided weakness was expressive aphasia. The pt was admitted for a stroke eval. During the course of her w/u the pt mentioned that the pt has continued to have vaginal bleeding. The pt was seen in late July where she presented to the ER with weakness. At that time her weakness was related to anemia with a Hgb 3.6. She had been recently started on Xarelto and was having heavy vaginal bleeding. She underwent an u/s revealing the following: Technically limited examination due to patient's body habitus. Somewhat heterogeneous appearance to the uterus possibly reflecting fibroids. No endometrial thickening is seen. No adnexal masses are seen. The ovaries were not identified. Small amount of free fluid in the pelvis. the uterus appears be normal in size at 10.8 x 7.0 x 7.7 cm in greatest dimension The endometrium is not abnormally thickened at 5.1 mm. The pt underwent a H/S, D&C for her thickened endometrium. The intraop finding were of atrophy, which was consistent with the pathological findings of insufficient endometrial tissue for diagnosis. There is no evidence of malignancy. It is difficult for the family to know how much bleeding the pt has been having since since she has been livening alone. It does not seem to be bad. This morning the pt was noted to have a softball size clot in toilet. Her Hgb 12.4 (similar to a couple of wks ago). PMH: Denies PSH: Denies Family History FH: noncontributory Social History SH: no tob, no EtOH OBHx: G0 Manager Customer: LMP 51yo Never hormonal contraception ~yr of OTC HRT 11yo / regular / 51yo Past Medical History Cardiovascular: Hyperlipidemia CENTRAL NERVOUS SYSTEM: CVA Heme/Onc: Anemia NOS, Other (DVT) Psych: Anxiety Musculoskeletal: Osteoarthritis Renal/: UTI, Other (vaginal bleeding) Past Surgical History Past Surgical History: Other (D & C; ILR placement) Family History Family History: Other (noncontributory to CV) Social History No ALCOHOL: none Drugs: None Lives: with Family Current Problem List Problem List Problems Medical Problems: (1) Expressive aphasia Status: Acute (2) Headache Status: Acute Current Medications Current Medications Current Medications Benztropine Mesylate (Cogentin) 2 mg 1X STAT IM Last administered on 11/05/19at 08:26; Start 11/05/19 at 07:54; Stop 11/05/19 at 07:58; Status DC Ondansetron HCl (Zofran) 4 mg PRN Q8HRS PRN IV NAUSEA/VOMITING; Start 11/05/19 at 08:00; Stop 11/06/19 at 07:59; Status DC Acetaminophen (Tylenol) 650 mg PRN Q6HRS PRN PO TEMP > 100.4F; Start 11/05/19 at 09:00 Acetaminophen (Tylenol Supp) 650 mg PRN Q4HRS PRN [place] TEMP > 100.4F; Start 11/05/19 at 09:00 Apixaban (Eliquis) 2.5 mg BID PO ; Start 11/05/19 at 21:00 Buspirone HCl (Buspar) 10 mg BID PO ; Start 11/05/19 at 21:00 Atorvastatin Calcium (Lipitor) 80 mg QHS PO ; Start 11/05/19 at 21:00 Aspirin (Ecotrin) 81 mg DAILYWBKFT PO ; Start 11/06/19 at 08:00 Hydralazine HCl (Apresoline Inj) 10 mg PRN Q4HRS PRN IVP ELEVATED BP, SEE COMMENTS; Start 11/05/19 at 14:45 Amino Acids/ Glycerin/ Electrolytes 1,000 ml @ 75 mls/hr [id number] IV Last administered on 11/06/19at 08:36; Start 11/05/19 at 17:45 Active Scripts Active Reported Midnite Chewable Tablet (Melatonin/Herbal No.233) 1 Each Tb.chw.dsp 1 Each PO HS Buspirone Hcl 10 Mg Tablet 1 Tab PO BID Eliquis (Apixaban) 2.5 Mg Tablet 2.5 Mg PO BID Allergies Allergies: Coded Allergies: No Known Drug Allergies (Unverified , 08/12/19) Vitals VITALS Vital Signs Date Time Temp Pulse Resp B/P (MAP) Pulse Ox O2 Delivery O2 Flow Rate FiO2 11/06/19 07:52 98.7 65 18 137/64 (88) 96 Room Air 98.7 Labs Labs Laboratory Tests Test 11/05/19 06:11 11/05/19 08:50 White Blood Count 6.9 x10^3/uL (4.0-11.0) Red Blood Count 4.91 x10^6/uL (3.50-5.40) Hemoglobin 12.4 g/dL (12.0-15.5) Hematocrit 38.7 % (36.0-47.0) Mean Corpuscular Volume 79 fL (79-100) Mean Corpuscular Hemoglobin 25 pg (25-35) Mean Corpuscular Hemoglobin Concent 32 g/dL (31-37) Red Cell Distribution Width 18.0 % (11.5-14.5) Platelet Count 206 x10^3/uL (140-400) Neutrophils (%) (Auto) 74 % (31-73) Lymphocytes (%) (Auto) 15 % (24-48) Monocytes (%) (Auto) 7 % (0-9) Eosinophils (%) (Auto) 3 % (0-3) Basophils (%) (Auto) 1 % (0-3) Neutrophils # (Auto) 5.1 x10^3/uL (1.8-7.7) Lymphocytes # (Auto) 1.0 x10^3/uL (1.0-4.8) Monocytes # (Auto) 0.5 x10^3/uL (0.0-1.1) Eosinophils # (Auto) 0.2 x10^3/uL (0.0-0.7) Basophils # (Auto) 0.1 x10^3/uL (0.0-0.2) Sodium Level 142 mmol/L (136-145) Potassium Level 4.0 mmol/L (3.5-5.1) Chloride Level 104 mmol/L (98-107) Carbon Dioxide Level 25 mmol/L (21-32) Anion Gap 13 (6-14) Blood Urea Nitrogen 15 mg/dL (7-20) Creatinine 1.2 mg/dL (0.6-1.0) Estimated GFR (Cockcroft-Gault) 46.0 BUN/Creatinine Ratio 13 (6-20) Glucose Level 102 mg/dL (70-99) Calcium Level 9.7 mg/dL (8.5-10.1) Magnesium Level 2.0 mg/dL (1.8-2.4) Total Bilirubin 0.3 mg/dL (0.2-1.0) Aspartate Amino Transf (AST/SGOT) 16 U/L (15-37) Alanine Aminotransferase (ALT/SGPT) 17 U/L (14-59) Alkaline Phosphatase 104 U/L (46-116) Ammonia < 10 mcmol/L (11-34) Total Protein 7.1 g/dL (6.4-8.2) Albumin 3.8 g/dL (3.4-5.0) Albumin/Globulin Ratio 1.2 (1.0-1.7) Ethyl Alcohol Level < 10 mg/dL (0-10) Urine Collection Type Unknown Urine Color Red Urine Clarity Cloudy Urine pH 6.5 (<5.0-8.0) Urine Specific [place] 1.025 (1.000-1.030) Urine Protein 100 mg/dL (NEG-TRACE) Urine Glucose (UA) Negative mg/dL (NEG) Urine Ketones (Stick) Negative mg/dL (NEG) Urine Blood Large (NEG) Urine Nitrite Negative (NEG) Urine Bilirubin Negative (NEG) Urine Urobilinogen Dipstick 0.2 mg/dL (0.2 mg/dL) Urine Leukocyte Esterase Large (NEG) Urine RBC Tntc /HPF (0-2) Urine WBC Tntc /HPF (0-4) Urine Squamous Epithelial Cells Few /LPF Urine Bacteria Many /HPF (0-FEW) Urine Opiates Screen Neg (NEG) Urine Methadone Screen Neg (NEG) Urine Barbiturates Neg (NEG) Urine Phencyclidine Screen Neg (NEG) Urine Amphetamine/Methamphetamine Neg (NEG) Urine Benzodiazepines Screen Neg (NEG) Urine Cocaine Screen Neg (NEG) Urine Cannabinoids Screen Neg (NEG) Urine Ethyl Alcohol Neg (NEG) Assessment/Plan Assessment/Plan Assessment: 59y G0 admitted for stroke evaluation Recommendations: 1.) Continued vaginal bleeding current not bad a Hgb stable, Family concerned about worsening with additional anticoagulation tx of stroke. Discussed tx options. Explained many of the medical options may not be an options due to the stroke. Discussed surgical options like ablation and hysterectomy. Rarely is endometrial ablation used in the tx of PMB. Diagnosis of endometrial cancer may be more difficult following endometrial ablation. Bleeding in postmenopausal women due to benign causes is often managed expectantly or the specific etiology is treated. The family seems to be leaning toward hysterectomy. Discussed timing of procedure. In postmenopausal women, uterine bleeding is usually light and self-limited. Exclusion of cancer is the main objective; therefore, treatment is usually unnecessary once cancer has been excluded. If a hysterectomy would be performed, it would be at the completion of her stroke eval and tx. 2.) Possible stroke neuro consulted, they feel may more likely be dystonic reaction from the amitriptyline 3.) H/o DVT on aspirin, gibran Gunn in place 8.) Will continue to follow OLAMIDE HOFF MD Nov 06, 2019 09:27
--- NOTE | 2019-11-06 09:33 | NUR ---
SW following. Discussed with RN, pt from home with mother, room air. Pt NPO for speech eval. Pt only a&o x1. PT/OT ordered. Med Assist will follow for self pay status.
[2019-11-06] MEDS ORDERED: APIXABAN 2.5 MG TABLET. PO ONE (10:00)
[2019-11-06 11:10] VITALS: BP 145/66
[2019-11-06] MEDS: ACETAMINOPHEN 325 MG TABLET. PO PRN (11:23)
--- NOTE | 2019-11-06 11:35 | PDOC ---
JULIANESukhjinderNICOLASA Rahul WELDING SUPERVISOR 11/06/19 1135: CARDIO Progress Notes Date and Time Date of Service 11/06/2019 Time of Evaluation 1040 Subjective Subjective: No Chest Pain, No shortness of breath Vitals Vitals Vital Signs Date Time Temp Pulse Resp B/P (MAP) Pulse Ox O2 Delivery O2 Flow Rate FiO2 11/06/19 11:10 98.2 62 18 145/66 (92) 96 Room Air 98.2 Weight Weight [ ] Input and Output Intake and Output Intake and Output 11/06/19 07:00 Intake Total 0 ml Balance 0 ml Intake Oral 0 ml # Voids 3 Physical Exam HEENT: Neck Supple W Full Motion Chest: Symmetric LUNGS: Clear to Auscultation Heart: S1S2, RRR (SR/SB ) Abdomen: Soft N/T Extremities: No Edema, No Calf Tenderness Neurology: alert, other (aphasic, appears in no discomfort) Assessment Assessment 1. Acute CVA: Possibly embolic in etiology noted per MRI. prior cryptogenic stroke 2. HTN urgency: controlled 3. HLP: on lipitor at home 4. Recent Hx of DVT with IVC filter 5. Morbid obesity 6. ILR in situ: BIotronik. SR and SB lowest 50s. 7. Encephalopathy/aphasia: remains the same Recommendations 1. No definitive AFIB with ILR and tele review nor any definitive embolic source from prior admission imagings. Will defer timing of the increase in eliquis to neurology and monitor hemoglobin with continued vaginal spotting followed by VENDOR ANALYST 2. Will consult CM/SS for assistance in getting disability coverage. 3. Hydralazine IV PRN. Restart home lipitor. 4. Consider coag workup with hematology given hx of DVT and recurrent stroke. Supportive care. Justicifation of Admission Dx: Justifications for Admission: Justification of Admission Dx: Yes Stroke - Ischemic: Stroke-Ischemic Altered Mental Status: Altered Mental Status FELICE AGUILAR MD 11/06/19 0277: CARDIO Progress Notes Plan Plan Pt. seen and examined. Agree with above BLOOD BANK COORDINATOR note. Supportive care. THanks NICOLASA INGRAM WELDING SUPERVISOR Nov 06, 2019 11:35 FELICE AGUILAR MD Nov 06, 2019 23:07
--- NOTE | 2019-11-06 13:17 | PDOC ---
PROGRESS NOTES Assessment Problems Medical Problems: (1) Expressive aphasia Status: Acute (2) Headache Status: Acute Acute right posterior cerebral infarct, acute right parietal occipital and posterior temporal infarcts, small focal acute left occipital lobe infarcts, punctate acute left frontal infarct, punctate acute right frontal infarct Possible dystonic reaction from the amitriptyline Prior cryptogenic embolic-type strokes, left frontoparietal and right parietal infarcts LINQ recording negative for afib. 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 Hyperlipidemia, we started statin last time Prior psychiatric disease Possible migraines Plan I sent hypercoagulable labs as permissible by hospital policy, will ask hematology to see Eliquis dose increased to 5 mg daily Gynecology consult Continue aspirin, statin Home rehabilitation Discharge as soon as tomorrow Discussed with mother. Subjective no pain Objective Vital Signs Date Time Temp Pulse Resp B/P (MAP) Pulse Ox O2 Delivery O2 Flow Rate FiO2 11/06/19 11:10 98.2 62 18 145/66 (92) 96 Room Air 98.2 Intake and Output 11/06/19 07:00 Intake Total 0 ml Balance 0 ml Intake Oral 0 ml # Voids 3 PHYSICAL EXAM Expressive aphasia PERRL. EOMI. CN: no focal findings. Muscle tone: normal. Muscle strength: 5/5 DTR: 2+ Plantar reflex: flexor Gait: not examined in bed. Sensory exam: no abnormal findings. No cerebellar signs elicited. Review of Relevant I have reviewed the following items gloria (where applicable) has been applied. Labs Laboratory Tests Test 11/05/19 06:11 11/05/19 08:50 White Blood Count 6.9 x10^3/uL (4.0-11.0) Red Blood Count 4.91 x10^6/uL (3.50-5.40) Hemoglobin 12.4 g/dL (12.0-15.5) Hematocrit 38.7 % (36.0-47.0) Mean Corpuscular Volume 79 fL (79-100) Mean Corpuscular Hemoglobin 25 pg (25-35) Mean Corpuscular Hemoglobin Concent 32 g/dL (31-37) Red Cell Distribution Width 18.0 % (11.5-14.5) Platelet Count 206 x10^3/uL (140-400) Neutrophils (%) (Auto) 74 % (31-73) Lymphocytes (%) (Auto) 15 % (24-48) Monocytes (%) (Auto) 7 % (0-9) Eosinophils (%) (Auto) 3 % (0-3) Basophils (%) (Auto) 1 % (0-3) Neutrophils # (Auto) 5.1 x10^3/uL (1.8-7.7) Lymphocytes # (Auto) 1.0 x10^3/uL (1.0-4.8) Monocytes # (Auto) 0.5 x10^3/uL (0.0-1.1) Eosinophils # (Auto) 0.2 x10^3/uL (0.0-0.7) Basophils # (Auto) 0.1 x10^3/uL (0.0-0.2) Sodium Level 142 mmol/L (136-145) Potassium Level 4.0 mmol/L (3.5-5.1) Chloride Level 104 mmol/L (98-107) Carbon Dioxide Level 25 mmol/L (21-32) Anion Gap 13 (6-14) Blood Urea Nitrogen 15 mg/dL (7-20) Creatinine 1.2 mg/dL (0.6-1.0) Estimated GFR (Cockcroft-Gault) 46.0 BUN/Creatinine Ratio 13 (6-20) Glucose Level 102 mg/dL (70-99) Calcium Level 9.7 mg/dL (8.5-10.1) Magnesium Level 2.0 mg/dL (1.8-2.4) Total Bilirubin 0.3 mg/dL (0.2-1.0) Aspartate Amino Transf (AST/SGOT) 16 U/L (15-37) Alanine Aminotransferase (ALT/SGPT) 17 U/L (14-59) Alkaline Phosphatase 104 U/L (46-116) Ammonia < 10 mcmol/L (11-34) Total Protein 7.1 g/dL (6.4-8.2) Albumin 3.8 g/dL (3.4-5.0) Albumin/Globulin Ratio 1.2 (1.0-1.7) Ethyl Alcohol Level < 10 mg/dL (0-10) Urine Collection Type Unknown Urine Color Red Urine Clarity Cloudy Urine pH 6.5 (<5.0-8.0) Urine Specific [place] 1.025 (1.000-1.030) Urine Protein 100 mg/dL (NEG-TRACE) Urine Glucose (UA) Negative mg/dL (NEG) Urine Ketones (Stick) Negative mg/dL (NEG) Urine Blood Large (NEG) Urine Nitrite Negative (NEG) Urine Bilirubin Negative (NEG) Urine Urobilinogen Dipstick 0.2 mg/dL (0.2 mg/dL) Urine Leukocyte Esterase Large (NEG) Urine RBC Tntc /HPF (0-2) Urine WBC Tntc /HPF (0-4) Urine Squamous Epithelial Cells Few /LPF Urine Bacteria Many /HPF (0-FEW) Urine Opiates Screen Neg (NEG) Urine Methadone Screen Neg (NEG) Urine Barbiturates Neg (NEG) Urine Phencyclidine Screen Neg (NEG) Urine Amphetamine/Methamphetamine Neg (NEG) Urine Benzodiazepines Screen Neg (NEG) Urine Cocaine Screen Neg (NEG) Urine Cannabinoids Screen Neg (NEG) Urine Ethyl Alcohol Neg (NEG) Microbiology 11/05/19 Urine Culture - Final, Complete Medications Current Medications Benztropine Mesylate (Cogentin) 2 mg 1X STAT IM Last administered on 11/05/19at 08:26; Start 11/05/19 at 07:54; Stop 11/05/19 at 07:58; Status DC Ondansetron HCl (Zofran) 4 mg PRN Q8HRS PRN IV NAUSEA/VOMITING; Start 11/05/19 at 08:00; Stop 11/06/19 at 07:59; Status DC Acetaminophen (Tylenol) 650 mg PRN Q6HRS PRN PO TEMP > 100.4F Last administered on 11/06/19at 11:23; Start 11/05/19 at 09:00 Acetaminophen (Tylenol Supp) 650 mg PRN Q4HRS PRN [place] TEMP > 100.4F; Start 11/05/19 at 09:00 Apixaban (Eliquis) 2.5 mg BID PO Last administered on 11/06/19at 09:49; Start 11/05/19 at 21:00; Stop 11/06/19 at 10:03; Status DC Buspirone HCl (Buspar) 10 mg BID PO Last administered on 11/06/19at 09:49; Start 11/05/19 at 21:00 Atorvastatin Calcium (Lipitor) 80 mg QHS PO ; Start 11/05/19 at 21:00 Aspirin (Ecotrin) 81 mg DAILYWBKFT PO Last administered on 11/06/19at 09:49; Start 11/06/19 at 08:00 Hydralazine HCl (Apresoline Inj) 10 mg PRN Q4HRS PRN IVP ELEVATED BP, SEE COMMENTS; Start 11/05/19 at 14:45 Amino Acids/ Glycerin/ Electrolytes 1,000 ml @ 75 mls/hr [id number] IV Last administered on 11/06/19at 08:36; Start 11/05/19 at 17:45 Apixaban (Eliquis) 5 mg BID PO ; Start 11/06/19 at 21:00 Apixaban (Eliquis) 2.5 mg 1X ONCE PO Last administered on 11/06/19at 11:23; Start 11/06/19 at 10:00; Stop 11/06/19 at 10:14; Status DC Info (Anti-Coagulation Monitoring By Pharmacy) 1 each PRN DAILY PRN MC SEE COMMENTS; Start 11/06/19 at 10:15 Active Scripts Active Reported Midnite Chewable Tablet (Melatonin/Herbal No.233) 1 Each Tb.chw.dsp 1 Each PO HS Buspirone Hcl 10 Mg Tablet 1 Tab PO BID Eliquis (Apixaban) 2.5 Mg Tablet 2.5 Mg PO BID Vitals/I & O Vital Sign - Last 24 Hours 11/05/19 11/05/19 11/05/19 11/05/19 17:56 18:58 20:00 22:42 Temp 98.3 98.9 98.3 98.9 Pulse 58 60 Resp 17 20 B/P (MAP) 154/73 (100) 132/62 (85) Pulse Ox 96 97 O2 Delivery Room Air Room Air Room Air Room Air 11/06/19 11/06/19 11/06/19 11/06/19 03:08 07:52 08:00 11:10 Temp 98.9 98.7 98.2 98.9 98.7 98.2 Pulse 61 65 62 Resp 18 18 18 B/P (MAP) 139/58 (85) 137/64 (88) 145/66 (92) Pulse Ox 97 96 96 O2 Delivery Room Air Room Air Room Air Room Air Intake and Output 11/05/19 11/05/19 11/06/19 15:00 23:00 07:00 Intake Total 0 ml 0 ml Balance 0 ml 0 ml Images BRAIN W/O CONTRAST History:Reason: recurrent stroke sx, compare to study from 3 weeks ago, / Spl. Instructions: / History: Technique: Multiplanar, multi sequential MR imaging was performed of the brain without contrast. Comparison: November 05, 2019 Findings: The patient was unable to complete the examination. Severely motion degraded FLAIR sequence. Diffusion weighted imaging, sagittal T1 and axial T2 imaging were obtained. Acute right parietal occipital and posterior temporal infarct. Small focal acute left occipital lobe infarcts. Punctate acute left frontal infarct (series 4 image 21). Punctate acute right frontal infarct (image 23). Evolving left frontal parietal infarcts. Evolving infarcts within the right posterior parietal lobe. Cortical laminar necrosis in the left frontal and right posterior parietal lobes. Partially empty sella, often incidental, unchanged. Imaged orbits are unremarkable. Imaged paranasal sinuses and mastoid air cells are clear. Impression: 1. Acute right posterior cerebral infarct. 2. Additional small acute infarcts bilaterally, as described. Findings raise concern for embolic etiology. 3. Evolving left frontoparietal and right parietal infarcts. Justicifation of Admission Dx: Justifications for Admission: Justification of Admission Dx: Yes Stroke - Ischemic: Stroke-Ischemic Altered Mental Status: Altered Mental Status CARRIE TO MD Nov 06, 2019 13:17
[2019-11-06 15:32] VITALS: BP 132/58
--- NOTE | 2019-11-06 16:52 | PDOC2 ---
CONSULT Date of Consult Date of Consult DATE: 11/06/19 TIME: 16:32 Reason for Consult Reason for Consult: Recurrent embolic strokes. Evaluation for hypercoagulable syndromes Referring Physician Referring Physician: Dr. Sicnlair Identification/Chief Complaint Chief Complaint Confusion and new stroke Problems: (1) Stroke Source Source: Caregiver, Chart review, Patient History of Present Illness Reason for Visit: Shari Mack is a 59-year-old female who has been admitted to the hospital for further evaluation and management of CVA. Her hematologic history dates back to April 2019 when she noticed swelling in the left lower extremity. She underwent lower extremity Doppler in July 2019 and this showed bilateral DVT in her lower extremities. She was started on Xarelto on August 04, 2019. Anticoagulation was complicated by heavy vaginal bleeding. She was hospitalized for this in July 2019 with a hemoglobin of 3.6. Evaluation for vaginal bleeding showed findings consistent with uterine fibroids. She was seen by Dr. Dacosta in the hospital at the time in consultation. Due to severe anemia secondary to blood loss and iron deficiency, it was recommended at the time that that she hold anticoagulation and obtain IVC filter placement. She received IVC filter placement during her hospital stay and was discharged. Of note, it was felt during her hospital stay that her initial deep venous thrombosis was prov oked by herbal phytoestrogens that the patient reported taking during the preceding year. She was hospitalized in early October 2019 with altered mental status and was found to have multifocal CVA highly suggestive of an embolic phenomenon. She received transesophageal echocardiogram and loop report recorder placement. DMITRI did not show intracardiac thrombus or PFO. No abnormal rhythm was noted on loop recorder. She was discharged from the hospital with recommendation to take aspirin 81 mg daily. She was readmitted recently due to new symptoms of confusion and received MRI brain that showed an acute right posterior cerebral infarct, additional small bilateral infarcts in addition to the previously noted evolving frontoparietal and right parietal infarcts. She has been started on anticoagulation with apixaban 5 mg daily and gynecology consultation has been sought for assistance with managing anticipated recurrence of vaginal bleeding. Hematology has been consulted to assist with evaluation of hypercoagulable syndromes. Patient denies a prior history of venous thromboembolism or arterial thrombosis besides what is documented in my note. She denies a family history of clots or cancer. Mother was at bedside and confirmed this. Past Medical History Cardiovascular: Hyperlipidemia CENTRAL NERVOUS SYSTEM: CVA Heme/Onc: Anemia NOS, Other (DVT) Psych: Anxiety Musculoskeletal: Osteoarthritis Renal/: UTI, Other (vaginal bleeding) Past Surgical History Past Surgical History: Other (D & C; ILR placement) Family History Family History: Other (noncontributory to CV) Social History No ALCOHOL: none Drugs: None Lives: with Family Current Problem List Problem List Problems Medical Problems: (1) Expressive aphasia Status: Acute (2) Headache Status: Acute Current Medications Current Medications Current Medications Benztropine Mesylate (Cogentin) 2 mg 1X STAT IM Last administered on 11/05/19at 08:26; Start 11/05/19 at 07:54; Stop 11/05/19 at 07:58; Status DC Ondansetron HCl (Zofran) 4 mg PRN Q8HRS PRN IV NAUSEA/VOMITING; Start 11/05/19 at 08:00; Stop 11/06/19 at 07:59; Status DC Acetaminophen (Tylenol) 650 mg PRN Q6HRS PRN PO TEMP > 100.4F Last administered on 11/06/19at 11:23; Start 11/05/19 at 09:00 Acetaminophen (Tylenol Supp) 650 mg PRN Q4HRS PRN NE TEMP > 100.4F; Start 11/05/19 at 09:00 Apixaban (Eliquis) 2.5 mg BID PO Last administered on 11/06/19at 09:49; Start 11/05/19 at 21:00; Stop 11/06/19 at 10:03; Status DC Buspirone HCl (Buspar) 10 mg BID PO Last administered on 11/06/19at 09:49; Start 11/05/19 at 21:00 Atorvastatin Calcium (Lipitor) 80 mg QHS PO ; Start 11/05/19 at 21:00 Aspirin (Ecotrin) 81 mg DAILYWBKFT PO Last administered on 11/06/19at 09:49; Start 11/06/19 at 08:00 Hydralazine HCl (Apresoline Inj) 10 mg PRN Q4HRS PRN IVP ELEVATED BP, SEE COMMENTS; Start 11/05/19 at 14:45 Amino Acids/ Glycerin/ Electrolytes 1,000 ml @ 75 mls/hr [id number] IV Last administered on 11/06/19at 08:36; Start 11/05/19 at 17:45; Stop 11/06/19 at 14:00; Status DC Apixaban (Eliquis) 5 mg BID PO ; Start 11/06/19 at 21:00 Apixaban (Eliquis) 2.5 mg 1X ONCE PO Last administered on 11/06/19at 11:23; Start 11/06/19 at 10:00; Stop 11/06/19 at 10:14; Status DC Info (Anti-Coagulation Monitoring By Pharmacy) 1 each PRN DAILY PRN MC SEE COMMENTS; Start 11/06/19 at 10:15 Active Scripts Active Reported Midnite Chewable Tablet (Melatonin/Herbal No.233) 1 Each Tb.chw.dsp 1 Each PO HS Buspirone Hcl 10 Mg Tablet 1 Tab PO BID Eliquis (Apixaban) 2.5 Mg Tablet 2.5 Mg PO BID Allergies Allergies: Coded Allergies: No Known Drug Allergies (Unverified , 08/12/19) ROS General: No: Chills, Night Sweats PSYCHOLOGICAL ROS: No: Anxiety Eyes: No Blurry vision, No Decreased vision HEENT: No: Heacaches, Visual Changes ALLERGY AND IMMUNOLOGY: No: Insect Bite Sensitivity Hematological and Lymphatic: YES: Blood Clots; No: Brusing ENDOCRINE: No: Breast Changes, Galactorrhea Breast: No New/Changing Breast Lumps Respiratory: No: Cough, Hemoptysis Cardiovascular: No Chest Pain, No Palpitations Gastrointestinal: No Nausea, No Vomiting, No Abdominal Pain, No Diarrhea Genitourinary: No Dysuria, No Flank Pain Musculoskeletal: No Joint Pain Neurological: No Behavorial Changes, No Bowel/Bladder ControlChng Skin: No Dry Skin, No Eczema Physical Exam General: Alert, Oriented X3 HEENT: Atraumatic, PERRLA Lungs: Clear to auscultation Heart: Regular rate, No murmurs Abdomen: Normal bowel sounds, Soft Extremities: No clubbing, No cyanosis, No edema Skin: No rashes Neuro: Normal gait, Normal speech Psych/Mental Status: Mental status NL MUSCULOSKELETAL: No joint tenderness Vitals VITALS Vital Signs Date Time Temp Pulse Resp B/P (MAP) Pulse Ox O2 Delivery O2 Flow Rate FiO2 11/06/19 15:32 98.5 57 18 132/58 (82) 97 Room Air 98.5 Labs Labs Laboratory Tests Test 11/05/19 06:11 11/05/19 08:50 White Blood Count 6.9 x10^3/uL (4.0-11.0) Red Blood Count 4.91 x10^6/uL (3.50-5.40) Hemoglobin 12.4 g/dL (12.0-15.5) Hematocrit 38.7 % (36.0-47.0) Mean Corpuscular Volume 79 fL (79-100) Mean Corpuscular Hemoglobin 25 pg (25-35) Mean Corpuscular Hemoglobin Concent 32 g/dL (31-37) Red Cell Distribution Width 18.0 % (11.5-14.5) Platelet Count 206 x10^3/uL (140-400) Neutrophils (%) (Auto) 74 % (31-73) Lymphocytes (%) (Auto) 15 % (24-48) Monocytes (%) (Auto) 7 % (0-9) Eosinophils (%) (Auto) 3 % (0-3) Basophils (%) (Auto) 1 % (0-3) Neutrophils # (Auto) 5.1 x10^3/uL (1.8-7.7) Lymphocytes # (Auto) 1.0 x10^3/uL (1.0-4.8) Monocytes # (Auto) 0.5 x10^3/uL (0.0-1.1) Eosinophils # (Auto) 0.2 x10^3/uL (0.0-0.7) Basophils # (Auto) 0.1 x10^3/uL (0.0-0.2) Sodium Level 142 mmol/L (136-145) Potassium Level 4.0 mmol/L (3.5-5.1) Chloride Level 104 mmol/L (98-107) Carbon Dioxide Level 25 mmol/L (21-32) Anion Gap 13 (6-14) Blood Urea Nitrogen 15 mg/dL (7-20) Creatinine 1.2 mg/dL (0.6-1.0) Estimated GFR (Cockcroft-Gault) 46.0 BUN/Creatinine Ratio 13 (6-20) Glucose Level 102 mg/dL (70-99) Calcium Level 9.7 mg/dL (8.5-10.1) Magnesium Level 2.0 mg/dL (1.8-2.4) Total Bilirubin 0.3 mg/dL (0.2-1.0) Aspartate Amino Transf (AST/SGOT) 16 U/L (15-37) Alanine Aminotransferase (ALT/SGPT) 17 U/L (14-59) Alkaline Phosphatase 104 U/L (46-116) Ammonia < 10 mcmol/L (11-34) Total Protein 7.1 g/dL (6.4-8.2) Albumin 3.8 g/dL (3.4-5.0) Albumin/Globulin Ratio 1.2 (1.0-1.7) Ethyl Alcohol Level < 10 mg/dL (0-10) Urine Collection Type Unknown Urine Color Red Urine Clarity Cloudy Urine pH 6.5 (<5.0-8.0) Urine Specific [place] 1.025 (1.000-1.030) Urine Protein 100 mg/dL (NEG-TRACE) Urine Glucose (UA) Negative mg/dL (NEG) Urine Ketones (Stick) Negative mg/dL (NEG) Urine Blood Large (NEG) Urine Nitrite Negative (NEG) Urine Bilirubin Negative (NEG) Urine Urobilinogen Dipstick 0.2 mg/dL (0.2 mg/dL) Urine Leukocyte Esterase Large (NEG) Urine RBC Tntc /HPF (0-2) Urine WBC Tntc /HPF (0-4) Urine Squamous Epithelial Cells Few /LPF Urine Bacteria Many /HPF (0-FEW) Urine Opiates Screen Neg (NEG) Urine Methadone Screen Neg (NEG) Urine Barbiturates Neg (NEG) Urine Phencyclidine Screen Neg (NEG) Urine Amphetamine/Methamphetamine Neg (NEG) Urine Benzodiazepines Screen Neg (NEG) Urine Cocaine Screen Neg (NEG) Urine Cannabinoids Screen Neg (NEG) Urine Ethyl Alcohol Neg (NEG) Images Images MRI brain Impression: 1. Acute right posterior cerebral infarct. 2. Additional small acute infarcts bilaterally, as described. Findings raise concern for embolic etiology. 3. Evolving left frontoparietal and right parietal infarcts. Assessment/Plan Assessment/Plan Assessment: Cryptogenic stroke, suspect embolic CVA History of DVT, provoked by estrogen supplementation IVC filter placement in July 2019 Uterine fibroids Recommendations: -Would like therapeutic anticoagulation but given prior difficulty with vaginal bleeding, would recommend Eliquis 2.5 mg twice daily. Would increase to 5 mg twice daily if tolerated -Agree with gynecology consultation and would appreciate assistance with management of vaginal bleeding from fibroids. Would avoid estrogen-based therapies given prior history of provoked DVT from estrogen. -Agree with evaluation for hypercoagulable syndromes. Would recommend checking lupus anticoagulant, anti-beta-2 glycoprotein antibody, anticardiolipin antibody, factor V Leiden, factor II/prothrombin gene mutation, protein C assay, protein S assay, -Reviewed evaluation by cardiology including loop recorder and DMITRI which does not suggest cardioembolic process -Given prior DVT, would be concerned about a PE and a secondary arteriovenous fistula that would explain her current presentation -Recommend CT angiography of the chest to evaluate for AV fistula -Would arrange for outpatient follow-up in hematology clinic to follow-up on the results of the above work-up Thank you for the consult Charles Walker MD Medical Oncology/Hematology Ph: [phone] DOMENIC WALKER MD Nov 06, 2019 16:52
[2019-11-06 18:10] LABS: ANA INTERP Negative (.)
[2019-11-06 19:00] VITALS: BP_SYST 154; BP_SYST 155; BP_DIAS 79; BP_DIAS 80
[2019-11-06] MEDS: ATORVASTATIN CALCIUM 40 MG TABLET. PO SCH (21:17)
[2019-11-06 22:57] VITALS: BP 160/59
[2019-11-07 02:41] VITALS: BP 157/61
[2019-11-07 07:49] VITALS: BP 126/60
--- NOTE | 2019-11-07 08:36 | PDOC ---
PROGRESS NOTES Assessment Problems Medical Problems: (1) Expressive aphasia Status: Acute (2) Headache Status: Acute Acute right posterior cerebral infarct, acute right parietal occipital and posterior temporal infarcts, small focal acute left occipital lobe infarcts, punctate acute left frontal infarct, punctate acute right frontal infarct Possible dystonic reaction from the amitriptyline Prior cryptogenic embolic-type strokes, left frontoparietal and right parietal infarcts LINQ recording negative for afib. 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 Hyperlipidemia, we started statin last time Prior psychiatric disease Possible migraines Vaginal bleeding Hematology consult appreciated, I did send protein S, protein C, Antithrombin III, Dr. Rodriguez ordered lupus anticoagulant Plan Eliquis Gynecology consult Continue aspirin, statin Home rehabilitation Discussed with mother. Subjective no pain Objective Vital Signs Date Time Temp Pulse Resp B/P (MAP) Pulse Ox O2 Delivery O2 Flow Rate FiO2 11/07/19 07:49 98.0 56 20 126/60 (82) 98 Room Air 98.0 Intake and Output 11/07/19 07:00 Intake Total 520 ml Output Total 0 ml Balance 520 ml Intake Oral 520 ml Output Urine Total 0 ml # Voids 3 PHYSICAL EXAM Expressive aphasia better, able to name and repeat PERRL. EOMI. Some visual processing errors CN: no focal findings. Muscle tone: normal. Muscle strength: 5/5 DTR: 2+ Plantar reflex: flexor Gait: not examined in bed. Sensory exam: no abnormal findings. No cerebellar signs elicited. Review of Relevant I have reviewed the following items gloria (where applicable) has been applied. Labs Laboratory Tests Test 11/05/19 08:50 11/05/19 09:20 Urine Collection Type Unknown Urine Color Red Urine Clarity Cloudy Urine pH 6.5 (<5.0-8.0) Urine Specific [place] 1.025 (1.000-1.030) Urine Protein 100 mg/dL (NEG-TRACE) Urine Glucose (UA) Negative mg/dL (NEG) Urine Ketones (Stick) Negative mg/dL (NEG) Urine Blood Large (NEG) Urine Nitrite Negative (NEG) Urine Bilirubin Negative (NEG) Urine Urobilinogen Dipstick 0.2 mg/dL (0.2 mg/dL) Urine Leukocyte Esterase Large (NEG) Urine RBC Tntc /HPF (0-2) Urine WBC Tntc /HPF (0-4) Urine Squamous Epithelial Cells Few /LPF Urine Bacteria Many /HPF (0-FEW) Urine Opiates Screen Neg (NEG) Urine Methadone Screen Neg (NEG) Urine Barbiturates Neg (NEG) Urine Phencyclidine Screen Neg (NEG) Urine Amphetamine/Methamphetamine Neg (NEG) Urine Benzodiazepines Screen Neg (NEG) Urine Cocaine Screen Neg (NEG) Urine Cannabinoids Screen Neg (NEG) Urine Ethyl Alcohol Neg (NEG) Anti-Nuclear Antibody Interpret Negative (.) Microbiology 11/05/19 Urine Culture - Final, Complete Medications Current Medications Benztropine Mesylate (Cogentin) 2 mg 1X STAT IM Last administered on 11/05/19at 08:26; Start 11/05/19 at 07:54; Stop 11/05/19 at 07:58; Status DC Ondansetron HCl (Zofran) 4 mg PRN Q8HRS PRN IV NAUSEA/VOMITING; Start 11/05/19 at 08:00; Stop 11/06/19 at 07:59; Status DC Acetaminophen (Tylenol) 650 mg PRN Q6HRS PRN PO TEMP > 100.4F Last administered on 11/06/19at 11:23; Start 11/05/19 at 09:00 Acetaminophen (Tylenol Supp) 650 mg PRN Q4HRS PRN [place] TEMP > 100.4F; Start 11/05/19 at 09:00 Apixaban (Eliquis) 2.5 mg BID PO Last administered on 11/06/19at 09:49; Start 11/05/19 at 21:00; Stop 11/06/19 at 10:03; Status DC Buspirone HCl (Buspar) 10 mg BID PO Last administered on 11/06/19at 21:17; Start 11/05/19 at 21:00 Atorvastatin Calcium (Lipitor) 80 mg QHS PO Last administered on 11/06/19at 21:17; Start 11/05/19 at 21:00 Aspirin (Ecotrin) 81 mg DAILYWBKFT PO Last administered on 11/06/19at 09:49; Start 11/06/19 at 08:00 Hydralazine HCl (Apresoline Inj) 10 mg PRN Q4HRS PRN IVP ELEVATED BP, SEE COMMENTS; Start 11/05/19 at 14:45 Amino Acids/ Glycerin/ Electrolytes 1,000 ml @ 75 mls/hr [id number] IV Last administered on 11/06/19at 08:36; Start 11/05/19 at 17:45; Stop 11/06/19 at 14:00; Status DC Apixaban (Eliquis) 5 mg BID PO Last administered on 11/06/19at 21:18; Start 11/06/19 at 21:00 Apixaban (Eliquis) 2.5 mg 1X ONCE PO Last administered on 11/06/19at 11:23; Start 11/06/19 at 10:00; Stop 11/06/19 at 10:14; Status DC Info (Anti-Coagulation Monitoring By Pharmacy) 1 each PRN DAILY PRN MC SEE COMMENTS; Start 11/06/19 at 10:15 Olanzapine (ZyPREXA ZYDIS) 5 mg PRN BID PRN PO ANXIETY / AGITATION Last administered on 11/06/19at 17:33; Start 11/06/19 at 17:30 Active Scripts Active Reported Midnite Chewable Tablet (Melatonin/Herbal No.233) 1 Each Tb.chw.dsp 1 Each PO HS Buspirone Hcl 10 Mg Tablet 1 Tab PO BID Eliquis (Apixaban) 2.5 Mg Tablet 2.5 Mg PO BID Vitals/I & O Vital Sign - Last 24 Hours 11/06/19 11/06/19 11/06/19 11/06/19 11:10 15:32 19:00 19:00 Temp 98.2 98.5 98.4 98.2 98.5 98.4 Pulse 62 57 51 Resp 20 B/P (MAP) 145/66 (92) 132/58 (82) 154/79 (104) Pulse Ox 96 97 96 O2 Delivery Room Air Room Air Room Air Room Air 11/06/19 11/07/19 11/07/19 22:57 02:41 07:49 Temp 98.1 98.3 98.0 98.1 98.3 98.0 Pulse 65 47 56 Resp 20 B/P (MAP) 160/59 (92) 157/61 (93) 126/60 (82) Pulse Ox 97 100 98 O2 Delivery Room Air Room Air Room Air Intake and Output 11/06/19 11/06/19 11/07/19 15:00 23:00 07:00 Intake Total 200 ml 150 ml 170 ml Output Total 0 ml Balance 200 ml 150 ml 170 ml Justicifation of Admission Dx: Justifications for Admission: Justification of Admission Dx: Yes Stroke - Ischemic: Stroke-Ischemic Altered Mental Status: Altered Mental Status CARRIE TO MD Nov 07, 2019 08:36
--- NOTE | 2019-11-07 08:52 | NUR ---
pg to Dr. Rodriguez RE pt excessive vaginal bleeding over night. pt HR was 115 @ shift change. is now 48-51 after shower and blood loss. Dr. Rodriguez placing orders for T&S, transfusion.
--- NOTE | 2019-11-07 08:55 | PDOC ---
PROGRESS NOTES Chief Complaint Chief Complaint A/P: Acute CVA - recurrent, appears embolic, however had DMITRI and ILR placed recently, no afib or obvious clots. H/o Acute DVT - s/p inferior vena cava filter placement 08/10/2019, on eliquis BID H/o Postmenopausal bleeding. Appreciate Gynecology consultation and further management per Gynecology. History of Present Illness History of Present Illness Ms Mack is a 59yo F w/ PMHx DVT, diagnosed on 08/04/2019, and subsequent vaginal bleeding s/p IVC filter, and recent CVA on 10/21/2019 who presented to the ER with headaches and weakness and confusion This all started about 7 PM 11/04/2019. Started amitriptyline a couple days ago and she thinks she may have had a reaction to that, however did have a recent stroke on October 20 which left her with some right-sided weakness and expressive aphasia. Found on MRI to have Acute right posterior cerebral infarct and evolution of prior left sided frontoparietal infarcts. 11/05: Seen with sister and mother bedside. Able to swallow bedside for me. Unsteady on her feet today, a bit confused and drowsy. Significant vaginal bleeding overnight with large bright red clots after increasing Eliquis. She is mentally more alert, weakness still present Plan: protein S, protein C, Antithrombin III ordered by Dr. Buitrago, f/u lupus anticoagulant and Neuro, Director Of Marketing, and Heme/onc recommendations Stat type and screen, CBC, CMP Vitals Vitals Vital Signs Date Time Temp Pulse Resp B/P (MAP) Pulse Ox O2 Delivery O2 Flow Rate FiO2 11/07/19 07:49 98.0 56 20 126/60 (82) 98 Room Air 98.0 Physical Exam General: Alert, Oriented X3 Heart: Regular rate, No murmurs Lungs: Clear Abdomen: Normal bowel sounds, Soft Extremities: No clubbing, No cyanosis, No edema Skin: No rashes Assessment and Plan Assessmemt and Plan Problems Medical Problems: (1) Expressive aphasia Status: Acute (2) Headache Status: Acute Comment Review of Relevant I have reviewed the following items gloria (where applicable) has been applied. Labs Laboratory Tests Test 11/05/19 09:20 Anti-Nuclear Antibody Interpret Negative (.) Microbiology 11/05/19 Urine Culture - Final, Complete Medications Current Medications Benztropine Mesylate (Cogentin) 2 mg 1X STAT IM Last administered on 11/05/19at 08:26; Start 11/05/19 at 07:54; Stop 11/05/19 at 07:58; Status DC Ondansetron HCl (Zofran) 4 mg PRN Q8HRS PRN IV NAUSEA/VOMITING; Start 11/05/19 at 08:00; Stop 11/06/19 at 07:59; Status DC Acetaminophen (Tylenol) 650 mg PRN Q6HRS PRN PO TEMP > 100.4F Last administered on 11/06/19at 11:23; Start 11/05/19 at 09:00 Acetaminophen (Tylenol Supp) 650 mg PRN Q4HRS PRN NE TEMP > 100.4F; Start 11/05/19 at 09:00 Apixaban (Eliquis) 2.5 mg BID PO Last administered on 11/06/19at 09:49; Start 11/05/19 at 21:00; Stop 11/06/19 at 10:03; Status DC Buspirone HCl (Buspar) 10 mg BID PO Last administered on 11/06/19at 21:17; Start 11/05/19 at 21:00 Atorvastatin Calcium (Lipitor) 80 mg QHS PO Last administered on 11/06/19at 21:17; Start 11/05/19 at 21:00 Aspirin (Ecotrin) 81 mg DAILYWBKFT PO Last administered on 11/06/19at 09:49; Start 11/06/19 at 08:00 Hydralazine HCl (Apresoline Inj) 10 mg PRN Q4HRS PRN IVP ELEVATED BP, SEE COMMENTS; Start 11/05/19 at 14:45 Amino Acids/ Glycerin/ Electrolytes 1,000 ml @ 75 mls/hr [id number] IV Last administered on 11/06/19at 08:36; Start 11/05/19 at 17:45; Stop 11/06/19 at 14:00; Status DC Apixaban (Eliquis) 5 mg BID PO Last administered on 11/06/19at 21:18; Start 11/06/19 at 21:00 Apixaban (Eliquis) 2.5 mg 1X ONCE PO Last administered on 11/06/19at 11:23; Start 11/06/19 at 10:00; Stop 11/06/19 at 10:14; Status DC Info (Anti-Coagulation Monitoring By Pharmacy) 1 each PRN DAILY PRN MC SEE COMMENTS; Start 11/06/19 at 10:15 Olanzapine (ZyPREXA ZYDIS) 5 mg PRN BID PRN PO ANXIETY / AGITATION Last a dministered on 11/06/19at 17:33; Start 11/06/19 at 17:30 Active Scripts Active Reported Midnite Chewable Tablet (Melatonin/Herbal No.233) 1 Each Tb.chw.dsp 1 Each PO HS Buspirone Hcl 10 Mg Tablet 1 Tab PO BID Eliquis (Apixaban) 2.5 Mg Tablet 2.5 Mg PO BID Vitals/I & O Vital Sign - Last 24 Hours 11/06/19 11/06/19 11/06/19 11/06/19 11:10 15:32 19:00 19:00 Temp 98.2 98.5 98.4 98.2 98.5 98.4 Pulse 62 57 51 Resp 20 B/P (MAP) 145/66 (92) 132/58 (82) 154/79 (104) Pulse Ox 96 97 96 O2 Delivery Room Air Room Air Room Air Room Air 11/06/19 11/07/19 11/07/19 22:57 02:41 07:49 Temp 98.1 98.3 98.0 98.1 98.3 98.0 Pulse 65 47 56 Resp 20 B/P (MAP) 160/59 (92) 157/61 (93) 126/60 (82) Pulse Ox 97 100 98 O2 Delivery Room Air Room Air Room Air Intake and Output 11/06/19 11/06/19 11/07/19 14:59 22:59 06:59 Intake Total 200 ml 150 ml 170 ml Output Total 0 ml Balance 200 ml 150 ml 170 ml Justicifation of Admission Dx: Justifications for Admission: Justification of Admission Dx: Yes Stroke - Ischemic: Stroke-Ischemic Altered Mental Status: Altered Mental Status CIRO BRANDT MD Nov 07, 2019 08:55
[2019-11-07] MEDS: busPIRone 10 MG TABLET. PO SCH ×2 (09:00→20:27)
[2019-11-07 09:53] LABS: BASO % 1 % (0-3); EOS # 0.2 x10^3/uL (0.0-0.7); EOS % 2 % (0-3); HEMATOCRIT 33.5 % (36.0-47.0); HEMOGLOBIN 10.8 g/dL (12.0-15.5); LYMPH # 0.7 x10^3/uL (1.0-4.8); LYMPH % 9 % (24-48); MEAN CORPUSCULAR HEMOGLOBIN 25 pg (25-35); MEAN CORPUSCULAR HGB CONC 32 g/dL (31-37); MEAN CORPUSCULAR VOLUME 79 fL (79-100); MONO # 0.5 x10^3/uL (0.0-1.1); MONO % 6 % (0-9); NEUT # 6.3 x10^3/uL (1.8-7.7); NEUT % 82 % (31-73); PLATELET COUNT 170 x10^3/uL (140-400); RED BLOOD COUNT 4.26 x10^6/uL (3.50-5.40); RED CELL DISTRIBUTION WIDTH 17.2 % (11.5-14.5); WHITE BLOOD COUNT 7.7 x10^3/uL (4.0-11.0)
[2019-11-07] MEDS: ASPIRIN ENTERIC COATED 81 MG TABLET.DR. PO SCH (09:55)
[2019-11-07] MEDS: APIXABAN 2.5 MG TABLET. PO SCH ×2 (09:56→20:38)
[2019-11-07 10:04] LABS: CREATININE 1.1 mg/dL (0.6-1.0); GFR 50.8; POTASSIUM 4.3 mmol/L (3.5-5.1)
--- NOTE | 2019-11-07 10:07 | PDOC ---
3RD PRESSMAN PROGRESS NOTE Subjective: The pt was reported to have increased VB over the night. See also seemed weaker than the previous date to her family members Objective: Vital Signs: Vital Signs Date Time Temp Pulse Resp B/P (MAP) Pulse Ox O2 Delivery O2 Flow Rate FiO2 11/06/19 07:52 98.7 65 18 137/64 (88) 96 Room Air 98.7 Vital Signs Date Time Temp Pulse Resp B/P (MAP) Pulse Ox O2 Delivery O2 Flow Rate FiO2 11/07/19 07:49 98.0 56 20 126/60 (82) 98 Room Air 98.0 Labs: Laboratory Tests Test 11/07/19 09:40 Sodium Level 140 mmol/L (136-145) Potassium Level 4.3 mmol/L (3.5-5.1) Chloride Level 101 mmol/L (98-107) Carbon Dioxide Level 25 mmol/L (21-32) Anion Gap 14 (6-14) Blood Urea Nitrogen 11 mg/dL (7-20) Creatinine 1.1 mg/dL (0.6-1.0) H Estimated GFR (Cockcroft-Gault) 50.8 BUN/Creatinine Ratio 10 (6-20) Glucose Level 137 mg/dL (70-99) H Calcium Level 9.0 mg/dL (8.5-10.1) Total Bilirubin Pending Aspartate Amino Transferase (AST) Pending Alanine Aminotransferase (ALT) Pending Alkaline Phosphatase Pending Total Protein Pending Albumin Pending Albumin/Globulin Ratio Pending Laboratory Tests 11/07/19 09:40 Laboratory Tests 11/07/19 09:40 Physical Exam: GENERAL: No apparent distress. Alert and oriented. HEENT: Head normocephalic, atraumatic. NECK: Supple LUNGS: Clear to auscultation. HEART: RRR, S1, S2 present, pulses intact ABDOMEN: Soft, positive bowel sounds. EXTREMITIES: No cyanosis or edema. NEUROLOGIC: Normal speech, normal tone PSYCHIATRIC: Normal affect, normal mood. SKIN: No ulceration. Assessment & Plan: A/P: 59y G0 admitted for stroke evaluation 1.) Vaginal bleeding reported to be increased, last CBC is from 11/04, CBC from this am pending, most medical options would not be option due to the increase risk of thrombosis (like estrogen, OCPs, or Transexamic acid). Options like high dose progestins and uterine artery ablation may not be good options either due to the type of bleeding. Typically profuse or prolonged uterine hemorrhage related to anovulation can be treated with high dose progestins alone. Since her bleeding is most likely related to a denuded endometrium, progestins are unlikely to be effective. Depending on the Hgb this morning may determine the c ourse. Even though ablation is not ideal in the postmenopausal pt, may be the safest option in the interim (short duration of surgery, minimal incisions). 2.) Stroke neuro consulted, along with dystonic reaction from the amitriptyline, Eliquis increased (more VB since increase) 3.) H/o DVT on aspirin, Eliquis, gibran in place 4.) Will continue to follow OLAMIDE HOFF MD Nov 07, 2019 10:07
--- NOTE | 2019-11-07 10:07 | NUR ---
RN in room to administer a.m. meds. when reviewing meds with patient, sister (MAXWELL) would not allow RN to give patient her dose of buspar as it "makes her feel funny". sister also requested that no zyprexa be given as it also makes patient lethargic. when RN asked sister why zyprexa had been given in the previous shift, sister indicated it was d/t patient being emotional, distressed, distraught, and very tearful. RN informed sister that it was not healthy for patient to be in that state and sister continued to insist that no zyprexa be given.
[2019-11-07 10:09] LABS: ALBUMIN 3.4 g/dL (3.4-5.0); TOTAL BILIRUBIN 0.3 mg/dL (0.2-1.0); TOTAL PROTEIN 6.7 g/dL (6.4-8.2)
[2019-11-07 11:07] VITALS: BP 135/63
--- NOTE | 2019-11-07 11:35 | NUR ---
SW following. Discussed with RN, pt NPO at midnight for possible hysterectomy due to vaginal bleeding. MIL spoke with Frida at [facility], they will be doing a medicaid and disability application today. SW to determine if any Acute rehab would take pt medicaid pending. MIL will continue to follow.
[2019-11-07] MEDS ORDERED: SIMETHICONE 80 MG TAB.CHEW PO PRN (13:30)
[2019-11-07] MEDS: ANTI-COAG MONITOR BY PHARMACY. MC PRN (13:34)
[2019-11-07 15:00] VITALS: BP 144/39
[2019-11-07] MEDS: ACETAMINOPHEN 325 MG TABLET. PO PRN (18:10)
[2019-11-07 19:18] VITALS: BP 117/41
[2019-11-07] MEDS: ATORVASTATIN CALCIUM 40 MG TABLET. PO SCH (20:38)
[2019-11-08 07:00] VITALS: BP 109/49
[2019-11-08 07:48] LABS: BASO # 0.1 x10^3/uL (0.0-0.2); BASO % 1 % (0-3); EOS # 0.2 x10^3/uL (0.0-0.7); EOS % 3 % (0-3); HEMATOCRIT 30.6 % (36.0-47.0); LYMPH # 1.4 x10^3/uL (1.0-4.8); LYMPH % 21 % (24-48); MEAN CORPUSCULAR HEMOGLOBIN 26 pg (25-35); MEAN CORPUSCULAR HGB CONC 33 g/dL (31-37); MEAN CORPUSCULAR VOLUME 78 fL (79-100); MONO # 0.5 x10^3/uL (0.0-1.1); MONO % 8 % (0-9); NEUT # 4.4 x10^3/uL (1.8-7.7); NEUT % 67 % (31-73); PLATELET COUNT 177 x10^3/uL (140-400); RED BLOOD COUNT 3.92 x10^6/uL (3.50-5.40); RED CELL DISTRIBUTION WIDTH 17.5 % (11.5-14.5); WHITE BLOOD COUNT 6.5 x10^3/uL (4.0-11.0)
[2019-11-08 07:57] LABS: CALCIUM 8.7 mg/dL (8.5-10.1); CREATININE 1.1 mg/dL (0.6-1.0); GFR 50.8; POTASSIUM 3.8 mmol/L (3.5-5.1)
[2019-11-08] MEDS: ASPIRIN ENTERIC COATED 81 MG TABLET.DR. PO SCH (08:00)
[2019-11-08] MEDS: busPIRone 10 MG TABLET. PO SCH ×2 (08:06→20:24)
[2019-11-08] MEDS: APIXABAN 2.5 MG TABLET. PO SCH (08:06)
--- NOTE | 2019-11-08 08:29 | PDOC ---
MEDICAL OFFICE ADMINISTRATOR PROGRESS NOTE Subjective: Pt with increased bleeding last night Objective: Vital Signs: Vital Signs Date Time Temp Pulse Resp B/P (MAP) Pulse Ox O2 Delivery O2 Flow Rate FiO2 11/07/19 07:49 98.0 56 20 126/60 (82) 98 Room Air 98.0 Vital Signs Date Time Temp Pulse Resp B/P (MAP) Pulse Ox O2 Delivery O2 Flow Rate FiO2 11/08/19 07:00 98.5 58 18 109/49 (69) 95 Room Air 98.5 Labs: Laboratory Tests Test 11/07/19 09:40 11/08/19 06:51 White Blood Count 7.7 x10^3/uL (4.0-11.0) 6.5 x10^3/uL (4.0-11.0) Red Blood Count 4.26 x10^6/uL (3.50-5.40) 3.92 x10^6/uL (3.50-5.40) Hemoglobin 10.8 g/dL (12.0-15.5) L 10.0 g/dL (12.0-15.5) L Hematocrit 33.5 % (36.0-47.0) L 30.6 % (36.0-47.0) L Mean Corpuscular Volume 79 fL (79-100) 78 fL (79-100) L Mean Corpuscular Hemoglobin 25 pg (25-35) 26 pg (25-35) Mean Corpuscular Hemoglobin Concent 32 g/dL (31-37) 33 g/dL (31-37) Red Cell Distribution Width 17.2 % (11.5-14.5) H 17.5 % (11.5-14.5) H Platelet Count 170 x10^3/uL (140-400) 177 x10^3/uL (140-400) Neutrophils (%) (Auto) 82 % (31-73) H 67 % (31-73) Lymphocytes (%) (Auto) 9 % (24-48) L 21 % (24-48) L Monocytes (%) (Auto) 6 % (0-9) 8 % (0-9) Eosinophils (%) (Auto) 2 % (0-3) 3 % (0-3) Basophils (%) (Auto) 1 % (0-3) 1 % (0-3) Neutrophils # (Auto) 6.3 x10^3/uL (1.8-7.7) 4.4 x10^3/uL (1.8-7.7) Lymphocytes # (Auto) 0.7 x10^3/uL (1.0-4.8) L 1.4 x10^3/uL (1.0-4.8) Monocytes # (Auto) 0.5 x10^3/uL (0.0-1.1) 0.5 x10^3/uL (0.0-1.1) Eosinophils # (Auto) 0.2 x10^3/uL (0.0-0.7) 0.2 x10^3/uL (0.0-0.7) Basophils # (Auto) 0.0 x10^3/uL (0.0-0.2) 0.1 x10^3/uL (0.0-0.2) Sodium Level 140 mmol/L (136-145) 139 mmol/L (136-145) Potassium Level 4.3 mmol/L (3.5-5.1) 3.8 mmol/L (3.5-5.1) Chloride Level 101 mmol/L (98-107) 103 mmol/L (98-107) Carbon Dioxide Level 25 mmol/L (21-32) 26 mmol/L (21-32) Anion Gap 14 (6-14) 10 (6-14) Blood Urea Nitrogen 11 mg/dL (7-20) 14 mg/dL (7-20) Creatinine 1.1 mg/dL (0.6-1.0) H 1.1 mg/dL (0.6-1.0) H Estimated GFR (Cockcroft-Gault) 50.8 50.8 BUN/Creatinine Ratio 10 (6-20) Glucose Level 137 mg/dL (70-99) H 97 mg/dL (70-99) Calcium Level 9.0 mg/dL (8.5-10.1) 8.7 mg/dL (8.5-10.1) Total Bilirubin 0.3 mg/dL (0.2-1.0) Aspartate Amino Transferase (AST) 14 U/L (15-37) L Alanine Aminotransferase (ALT) 16 U/L (14-59) Alkaline Phosphatase 87 U/L (46-116) Total Protein 6.7 g/dL (6.4-8.2) Albumin 3.4 g/dL (3.4-5.0) Albumin/Globulin Ratio 1.0 (1.0-1.7) Laboratory Tests 11/07/19 09:40 11/08/19 06:51 Laboratory Tests 11/07/19 09:40 11/08/19 06:51 Laboratory Tests 11/08/19 06:51 Physical Exam: GENERAL: No apparent distress. Alert and oriented. HEENT: Head normocephalic, atraumatic. NECK: Supple LUNGS: Clear to auscultation. HEART: RRR, S1, S2 present, pulses intact ABDOMEN: Soft, positive bowel sounds. EXTREMITIES: No cyanosis or edema. NEUROLOGIC: Normal speech, normal tone PSYCHIATRIC: Normal affect, normal mood. SKIN: No ulceration. Assessment & Plan: A/P: 59y G0 admitted for stroke evaluation 1.) Vaginal bleeding reported to be increased, Hgb dropping, will check with anesthesia to see if pt reasonable candidate for surgery, if ok with anesthesia will place on schedule for endometrial ablation 2.) Stroke neuro consulted, along with dystonic reaction from the amitriptyline, Eliquis increased (more VB since increase) 3.) H/o DVT on aspirin, Eliquisgibran in place 4.) Will continue to follow OLAMIDE HOFF MD Nov 08, 2019 08:29
[2019-11-08] MEDS ORDERED: APIXABAN 5 MG TABLET. PO SCH (08:42)
[2019-11-08] MEDS: ANTI-COAG MONITOR BY PHARMACY. MC PRN (08:45)
--- NOTE | 2019-11-08 09:04 | PDOC ---
[employer] PROGRESS NOTE Chief Complaint Chief Complaint A/P: Acute CVA - recurrent, appears embolic, however had DMITRI and ILR placed recently, no afib or obvious clots. H/o Acute DVT - s/p inferior vena cava filter placement 08/10/2019, on eliquis BID H/o Postmenopausal bleeding. Appreciate Gynecology consultation and further management per Gynecology. History of Present Illness History of Present Illness Ms Mack is a 59yo F w/ PMHx DVT, diagnosed on 08/04/2019, and subsequent vaginal bleeding s/p IVC filter, and recent CVA on 10/21/2019 who presented to the ER with headaches and weakness and confusion This all started about 7 PM 11/04/2019. Started amitriptyline a couple days ago a nd she thinks she may have had a reaction to that, however did have a recent stroke on October 20 which left her with some right-sided weakness and expressive aphasia. Found on MRI to have Acute right posterior cerebral infarct and evolution of prior left sided frontoparietal infarcts. 11/05: Seen with sister and mother bedside. Able to swallow bedside for me. Unsteady on her feet today, a bit confused and drowsy. 11/06: Significant vaginal bleeding overnight with large bright red clots after increasing Eliquis. Hb to 10.4. She is mentally more alert, weakness still present Vaginal bleeding overnight. Hb to 10, Eliquis on 12-hour hold for possible hysteroscopy with uterine ablation, have discussed with Dr. Bowen from gynecology. Plan: protein S, protein C, Antithrombin III ordered by Dr. Buitrago, f/u lupus anticoagulant and Neuro, Chairman & Ceo, and Heme/onc recommendations Stat type and screen, CBC, CMP Possible blood and FFP transfusion during surgery today. Vitals/I&O Vitals/I&O: Vital Signs Date Time Temp Pulse Resp B/P (MAP) Pulse Ox O2 Delivery O2 Flow Rate FiO2 11/08/19 07:00 98.5 58 18 109/49 (69) 95 Room Air 98.5 I & O 11/07/19 11/07/19 11/08/19 15:00 23:00 07:00 Intake Total 450 ml 200 ml 200 ml Balance 450 ml 200 ml 200 ml Physical Exam General: Alert, Oriented X3 Heart: Regular rate, No murmurs Lungs: Clear Abdomen: Normal bowel sounds, Soft Extremities: No clubbing, No cyanosis, No edema Skin: No rashes Labs Labs: Laboratory Tests Test 11/07/19 09:40 11/08/19 06:51 White Blood Count 7.7 x10^3/uL (4.0-11.0) 6.5 x10^3/uL (4.0-11.0) Red Blood Count 4.26 x10^6/uL (3.50-5.40) 3.92 x10^6/uL (3.50-5.40) Hemoglobin 10.8 g/dL (12.0-15.5) 10.0 g/dL (12.0-15.5) Hematocrit 33.5 % (36.0-47.0) 30.6 % (36.0-47.0) Mean Corpuscular Volume 79 fL (79-100) 78 fL (79-100) Mean Corpuscular Hemoglobin 25 pg (25-35) 26 pg (25-35) Mean Corpuscular Hemoglobin Concent 32 g/dL (31-37) 33 g/dL (31-37) Red Cell Distribution Width 17.2 % (11.5-14.5) 17.5 % (11.5-14.5) Platelet Count 170 x10^3/uL (140-400) 177 x10^3/uL (140-400) Neutrophils (%) (Auto) 82 % (31-73) 67 % (31-73) Lymphocytes (%) (Auto) 9 % (24-48) 21 % (24-48) Monocytes (%) (Auto) 6 % (0-9) 8 % (0-9) Eosinophils (%) (Auto) 2 % (0-3) 3 % (0-3) Basophils (%) (Auto) 1 % (0-3) 1 % (0-3) Neutrophils # (Auto) 6.3 x10^3/uL (1.8-7.7) 4.4 x10^3/uL (1.8-7.7) Lymphocytes # (Auto) 0.7 x10^3/uL (1.0-4.8) 1.4 x10^3/uL (1.0-4.8) Monocytes # (Auto) 0.5 x10^3/uL (0.0-1.1) 0.5 x10^3/uL (0.0-1.1) Eosinophils # (Auto) 0.2 x10^3/uL (0.0-0.7) 0.2 x10^3/uL (0.0-0.7) Basophils # (Auto) 0.0 x10^3/uL (0.0-0.2) 0.1 x10^3/uL (0.0-0.2) Sodium Level 140 mmol/L (136-145) 139 mmol/L (136-145) Potassium Level 4.3 mmol/L (3.5-5.1) 3.8 mmol/L (3.5-5.1) Chloride Level 101 mmol/L (98-107) 103 mmol/L (98-107) Carbon Dioxide Level 25 mmol/L (21-32) 26 mmol/L (21-32) Anion Gap 14 (6-14) 10 (6-14) Blood Urea Nitrogen 11 mg/dL (7-20) 14 mg/dL (7-20) Creatinine 1.1 mg/dL (0.6-1.0) 1.1 mg/dL (0.6-1.0) Estimated GFR (Cockcroft-Gault) 50.8 50.8 BUN/Creatinine Ratio 10 (6-20) Glucose Level 137 mg/dL (70-99) 97 mg/dL (70-99) Calcium Level 9.0 mg/dL (8.5-10.1) 8.7 mg/dL (8.5-10.1) Total Bilirubin 0.3 mg/dL (0.2-1.0) Aspartate Amino Transf (AST/SGOT) 14 U/L (15-37) Alanine Aminotransferase (ALT/SGPT) 16 U/L (14-59) Alkaline Phosphatase 87 U/L (46-116) Total Protein 6.7 g/dL (6.4-8.2) Albumin 3.4 g/dL (3.4-5.0) Albumin/Globulin Ratio 1.0 (1.0-1.7) Assessment and Plan Assessmemt and Plan Problems Medical Problems: (1) Expressive aphasia Status: Acute (2) Headache Status: Acute Comment Review of Relevant I have reviewed the following items gloria (where applicable) has been applied. Medications: Current Medications Medications (Trade) Dose Ordered Sig/Willow Route PRN Reason Start Time Stop Time Status Last Admin Dose Admin Simethicone (Gas-X) 80 mg PRN QID PRN PO GAS / BLOATING 11/07/19 13:30 11/07/19 13:48 Justicifation of Admission Dx: Justifications for Admission: Justification of Admission Dx: Yes Stroke - Ischemic: Stroke-Ischemic Altered Mental Status: Altered Mental Status CIRO BRANDT MD Nov 08, 2019 09:04
[2019-11-08] MEDS ORDERED: IV RINGERS,LACTATED 1000ML 1,000 ML IV SCH (10:16)
[2019-11-08] MEDS ORDERED: HYDROmorphone 2 MG/ML VIAL IV PRN (10:30)
[2019-11-08] MEDS ORDERED: ONDANSETRON PF 4 MG/2 ML VIAL. IV PRN (10:30)
[2019-11-08] MEDS ORDERED: fentaNYL PF VIAL 100 MCG/2 ML VIAL IV PRN ×2 (10:30)
[2019-11-08] MEDS ORDERED: MORPHINE SULFATE 2 MG/ML VIAL. IV PRN (10:30)
[2019-11-08] MEDS ORDERED: ONDANSETRON PF 4 MG/2 ML VIAL. ONE (10:36)
[2019-11-08] MEDS ORDERED: DEXAMETHASONE SOD PHOS 4 MG/ML VIAL ONE (10:36)
[2019-11-08] MEDS ORDERED: LIDOCAINE 2% PF 5 ML VIAL. ONE (10:36)
[2019-11-08] MEDS ORDERED: PROPOFOL 10 MG/ML (20ML) VIAL. IV ONE (10:36)
[2019-11-08 10:37] LABS: ANTITHROMBIN III SEE SEPARATE REPORT; PROTEIN C ACTIVITY SEE SEPARATE REPORT
[2019-11-08 10:38] LABS: PROTEIN S ACTIVITY SEE SEPARATE REPORT
[2019-11-08] MEDS ORDERED: fentaNYL PF VIAL 100 MCG/2 ML VIAL ONE (10:38)
[2019-11-08 11:20] VITALS: BP 115/50
[2019-11-08] MEDS ORDERED: fentaNYL PF VIAL 100 MCG/2 ML VIAL IVP PRN (14:45)
[2019-11-08] MEDS: HYDROcodone/APAP 5/325MG 1 TAB TABLET PO PRN (14:51)
[2019-11-08 14:58] VITALS: BP 128/61
--- NOTE | 2019-11-08 15:04 | PDOC4 ---
OPERATIVE NOTE: PreOp Dx: 1. PMB, 2. acute stroke, 3. h/o DVT, 4. on Eliquis PostOp Dx: same Procedure: H/S, D&C, attempted Novasure Ablation Surgeons: Tal Hoff Anesthesia: GETA EBL: 300 cc Findings: active bleeding, atrophic appearing endometrium Pathology: endometrial curettage Complications: unable to activate Novasure OLAMIDE HOFF MD Nov 08, 2019 15:04
--- NOTE | 2019-11-08 15:38 | PDOC ---
PROGRESS NOTES Assessment Problems Medical Problems: (1) Expressive aphasia Status: Acute (2) Headache Status: Acute Acute right posterior cerebral infarct, acute right parietal occipital and posterior temporal infarcts, small focal acute left occipital lobe infarcts, punctate acute left frontal infarct, punctate acute right frontal infarct Possible dystonic reaction from the amitriptyline Prior cryptogenic embolic-type strokes, left frontoparietal and right parietal infarcts LINQ recording negative for afib. 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 Hyperlipidemia, we started statin last time Prior psychiatric disease Possible migraines Vaginal bleeding Hematology consult appreciated, I did send protein S, protein C, Antithrombin III, Dr. Rodriguez ordered lupus anticoagulant Plan Eliquis Gynecology consult, note plans to transfer to [facility] Continue aspirin, statin Home rehabilitation Discussed with mother. Subjective no complaints, denies headache Objective Vital Signs Date Time Temp Pulse Resp B/P (MAP) Pulse Ox O2 Delivery O2 Flow Rate FiO2 11/08/19 14:58 98.0 65 18 128/61 (83) 98 Room Air 98.0 11/08/19 13:42 10 Intake and Output 11/08/19 07:00 Intake Total 850 ml Balance 850 ml Intake Oral 850 ml # Voids 5 PHYSICAL EXAM Expressive aphasia better, able to name and repeat PERRL. EOMI. Some visual processing errors CN: no focal findings. Muscle tone: normal. Muscle strength: 5/5 DTR: 2+ Plantar reflex: flexor Gait: not examined in bed. Sensory exam: no abnormal findings. No cerebellar signs elicited. Review of Relevant I have reviewed the following items gloria (where applicable) has been applied. Labs Laboratory Tests Test 11/07/19 09:40 11/08/19 06:51 11/08/19 09:10 White Blood Count 7.7 x10^3/uL (4.0-11.0) 6.5 x10^3/uL (4.0-11.0) Red Blood Count 4.26 x10^6/uL (3.50-5.40) 3.92 x10^6/uL (3.50-5.40) Hemoglobin 10.8 g/dL (12.0-15.5) 10.0 g/dL (12.0-15.5) Hematocrit 33.5 % (36.0-47.0) 30.6 % (36.0-47.0) Mean Corpuscular Volume 79 fL (79-100) 78 fL (79-100) Mean Corpuscular Hemoglobin 25 pg (25-35) 26 pg (25-35) Mean Corpuscular Hemoglobin Concent 32 g/dL (31-37) 33 g/dL (31-37) Red Cell Distribution Width 17.2 % (11.5-14.5) 17.5 % (11.5-14.5) Platelet Count 170 x10^3/uL (140-400) 177 x10^3/uL (140-400) Neutrophils (%) (Auto) 82 % (31-73) 67 % (31-73) Lymphocytes (%) (Auto) 9 % (24-48) 21 % (24-48) Monocytes (%) (Auto) 6 % (0-9) 8 % (0-9) Eosinophils (%) (Auto) 2 % (0-3) 3 % (0-3) Basophils (%) (Auto) 1 % (0-3) 1 % (0-3) Neutrophils # (Auto) 6.3 x10^3/uL (1.8-7.7) 4.4 x10^3/uL (1.8-7.7) Lymphocytes # (Auto) 0.7 x10^3/uL (1.0-4.8) 1.4 x10^3/uL (1.0-4.8) Monocytes # (Auto) 0.5 x10^3/uL (0.0-1.1) 0.5 x10^3/uL (0.0-1.1) Eosinophils # (Auto) 0.2 x10^3/uL (0.0-0.7) 0.2 x10^3/uL (0.0-0.7) Basophils # (Auto) 0.0 x10^3/uL (0.0-0.2) 0.1 x10^3/uL (0.0-0.2) Sodium Level 140 mmol/L (136-145) 139 mmol/L (136-145) Potassium Level 4.3 mmol/L (3.5-5.1) 3.8 mmol/L (3.5-5.1) Chloride Level 101 mmol/L (98-107) 103 mmol/L (98-107) Carbon Dioxide Level 25 mmol/L (21-32) 26 mmol/L (21-32) Anion Gap 14 (6-14) 10 (6-14) Blood Urea Nitrogen 11 mg/dL (7-20) 14 mg/dL (7-20) Creatinine 1.1 mg/dL (0.6-1.0) 1.1 mg/dL (0.6-1.0) Estimated GFR (Cockcroft-Gault) 50.8 50.8 BUN/Creatinine Ratio 10 (6-20) Glucose Level 137 mg/dL (70-99) 97 mg/dL (70-99) Calcium Level 9.0 mg/dL (8.5-10.1) 8.7 mg/dL (8.5-10.1) Total Bilirubin 0.3 mg/dL (0.2-1.0) Aspartate Amino Transf (AST/SGOT) 14 U/L (15-37) Alanine Aminotransferase (ALT/SGPT) 16 U/L (14-59) Alkaline Phosphatase 87 U/L (46-116) Total Protein 6.7 g/dL (6.4-8.2) Albumin 3.4 g/dL (3.4-5.0) Albumin/Globulin Ratio 1.0 (1.0-1.7) Iron Level 22 ug/dL (50-170) Total Iron Binding Capacity 300 ug/dL (250-450) Iron Saturation 7 % (15-34) SARS-CoV-2 Antigen (Rapid) Negative (NEGATIVE) Laboratory Tests Test 11/08/19 06:51 11/08/19 09:10 White Blood Count 6.5 x10^3/uL (4.0-11.0) Red Blood Count 3.92 x10^6/uL (3.50-5.40) Hemoglobin 10.0 g/dL (12.0-15.5) Hematocrit 30.6 % (36.0-47.0) Mean Corpuscular Volume 78 fL (79-100) Mean Corpuscular Hemoglobin 26 pg (25-35) Mean Corpuscular Hemoglobin Concent 33 g/dL (31-37) Red Cell Distribution Width 17.5 % (11.5-14.5) Platelet Count 177 x10^3/uL (140-400) Neutrophils (%) (Auto) 67 % (31-73) Lymphocytes (%) (Auto) 21 % (24-48) Monocytes (%) (Auto) 8 % (0-9) Eosinophils (%) (Auto) 3 % (0-3) Basophils (%) (Auto) 1 % (0-3) Neutrophils # (Auto) 4.4 x10^3/uL (1.8-7.7) Lymphocytes # (Auto) 1.4 x10^3/uL (1.0-4.8) Monocytes # (Auto) 0.5 x10^3/uL (0.0-1.1) Eosinophils # (Auto) 0.2 x10^3/uL (0.0-0.7) Basophils # (Auto) 0.1 x10^3/uL (0.0-0.2) Sodium Level 139 mmol/L (136-145) Potassium Level 3.8 mmol/L (3.5-5.1) Chloride Level 103 mmol/L (98-107) Carbon Dioxide Level 26 mmol/L (21-32) Anion Gap 10 (6-14) Blood Urea Nitrogen 14 mg/dL (7-20) Creatinine 1.1 mg/dL (0.6-1.0) Estimated GFR (Cockcroft-Gault) 50.8 Glucose Level 97 mg/dL (70-99) Calcium Level 8.7 mg/dL (8.5-10.1) Iron Level 22 ug/dL (50-170) Total Iron Binding Capacity 300 ug/dL (250-450) Iron Saturation 7 % (15-34) SARS-CoV-2 Antigen (Rapid) Negative (NEGATIVE) Microbiology 11/05/19 Urine Culture - Final, Complete Medications Current Medications Benztropine Mesylate (Cogentin) 2 mg 1X STAT IM Last administered on 11/05/19at 08:26; Start 11/05/19 at 07:54; Stop 11/05/19 at 07:58; Status DC Ondansetron HCl (Zofran) 4 mg PRN Q8HRS PRN IV NAUSEA/VOMITING; Start 11/05/19 at 08:00; Stop 11/06/19 at 07:59; Status DC Acetaminophen (Tylenol) 650 mg PRN Q6HRS PRN PO TEMP > 100.4F Last administered on 11/07/19at 18:10; Start 11/05/19 at 09:00 Acetaminophen (Tylenol Supp) 650 mg PRN Q4HRS PRN FL TEMP > 100.4F; Start 11/05/19 at 09:00 Apixaban (Eliquis) 2.5 mg BID PO Last administered on 11/06/19at 09:49; Start 11/05/19 at 21:00; Stop 11/06/19 at 10:03; Status DC Buspirone HCl (Buspar) 10 mg BID PO Last administered on 11/06/19at 21:17; Start 11/05/19 at 21:00 Atorvastatin Calcium (Lipitor) 80 mg QHS PO Last administered on 11/07/19at 20:38; Start 11/05/19 at 21:00 Aspirin (Ecotrin) 81 mg [id number] PO Last administered on 11/07/19at 09:55; Start 11/06/19 at 08:00 Hydralazine HCl (Apresoline Inj) 10 mg PRN Q4HRS PRN IVP ELEVATED BP, SEE COMMENTS; Start 11/05/19 at 14:45 Amino Acids/ Glycerin/ Electrolytes 1,000 ml @ 75 mls/hr [id number] IV Last administered on 11/06/19at 08:36; Start 11/05/19 at 17:45; Stop 11/06/19 at 14:00; Status DC Apixaban (Eliquis) 5 mg BID PO Last administered on 11/07/19at 20:38; Start 11/06/19 at 21:00; Stop 11/08/19 at 08:42; Status DC Apixaban (Eliquis) 2.5 mg 1X ONCE PO Last administered on 11/06/19at 11:23; Start 11/06/19 at 10:00; Stop 11/06/19 at 10:14; Status DC Info (Anti-Coagulation Monitoring By Pharmacy) 1 each PRN DAILY PRN MC SEE COMMENTS Last administered on 11/08/19at 08:45; Start 11/06/19 at 10:15 Olanzapine (ZyPREXA ZYDIS) 5 mg PRN BID PRN PO ANXIETY / AGITATION Last administered on 11/07/19at 20:38; Start 11/06/19 at 17:30 Simethicone (Gas-X) 80 mg PRN QID PRN PO GAS / BLOATING Last administered on 11/07/19at 13:48; Start 11/07/19 at 13:30 Apixaban (Eliquis) 5 mg BID PO ; Start 11/08/19 at 08:42; Stop 11/08/19 at 09:07; Status DC Ondansetron HCl (Zofran) 4 mg PRN Q6HRS PRN IV NAUSEA/VOMITING; Start 11/08/19 at 10:30; Stop 11/09/19 at 10:29 Fentanyl Citrate (Fentanyl 2ml Vial) 25 mcg PRN Q5MIN PRN IV MILD PAIN 1-3; Start 11/08/19 at 10:30; Stop 11/09/19 at 10:29 Fentanyl Citrate (Fentanyl 2ml Vial) 50 mcg PRN Q5MIN PRN IV MODERATE TO SEVERE PAIN; Start 11/08/19 at 10:30; Stop 11/09/19 at 10:29 Morphine Sulfate (Morphine Sulfate) 1 mg PRN Q10MIN PRN IV SEVERE PAIN 7-10; Start 11/08/19 at 10:30; Stop 11/09/19 at 10:29 Ringer's Solution 1,000 ml @ 30 mls/hr Q24H IV ; Start 11/08/19 at 10:16; Stop 11/08/19 at 22:15 Hydromorphone HCl (Dilaudid) 0.5 mg PRN Q10MIN PRN IV SEV PAIN, Second choice; Start 11/08/19 at 10:30; Stop 11/09/19 at 10:29 Propofol (Diprivan) 200 mg STK-MED ONCE IV ; Start 11/08/19 at 10:36; Stop 11/08/19 at 10:36; Status DC Lidocaine HCl (Lidocaine Pf 2% Vial) 5 ml STK-MED ONCE .ROUTE ; Start 11/08/19 at 10:36; Stop 11/08/19 at 10:36; Status DC Ondansetron HCl (Zofran) 4 mg STK-MED ONCE .ROUTE ; Start 11/08/19 at 10:36; Stop 11/08/19 at 10:36; Status DC Dexamethasone Sodium Phosphate (Decadron) 4 mg STK-MED ONCE .ROUTE ; Start 11/08/19 at 10:36; Stop 11/08/19 at 10:36; Status DC Fentanyl Citrate (Fentanyl 2ml Vial) 100 mcg STK-MED ONCE .ROUTE ; Start 11/08/19 at 10:38; Stop 11/08/19 at 10:38; Status DC Fentanyl Citrate (Fentanyl 2ml Vial) 50 mcg PRN Q3HRS PRN IVP PAIN; Start 11/08/19 at 14:45 Acetaminophen/ Hydrocodone Bitart (Lortab 5/325) 1 tab PRN Q6HRS PRN PO PAIN Last administered on 11/08/19at 14:51; Start 11/08/19 at 14:45 Active Scripts Active Reported Midnite Chewable Tablet (Melatonin/Herbal No.233) 1 Each Tb.chw.dsp 1 Each PO HS Buspirone Hcl 10 Mg Tablet 1 Tab PO BID Eliquis (Apixaban) 2.5 Mg Tablet 2.5 Mg PO BID Vitals/I & O Vital Sign - Last 24 Hours 11/07/19 11/07/19 11/07/19 11/08/19 19:18 20:00 23:54 03:41 Temp 98.0 98.0 Pulse 59 55 54 Resp 16 16 B/P (MAP) 117/41 (66) Pulse Ox 99 O2 Delivery Room Air Room Air Room Air 11/08/19 11/08/19 11/08/19 11/08/19 07:00 11:20 12:10 13:42 Temp 98.5 98.0 98.4 99.0 98.5 98.0 98.4 99.0 Pulse 58 63 87 70 Resp 18 18 20 16 B/P (MAP) 109/49 (69) 115/50 (71) 140/72 153/79 Pulse Ox 95 96 97 100 O2 Delivery Room Air Room Air Room Air Simple Mask O2 Flow Rate 10 11/08/19 11/08/19 11/08/19 11/08/19 13:57 14:12 14:51 14:58 Temp 98.0 98.0 Pulse 70 63 65 Resp 16 16 18 B/P (MAP) 132/79 131/59 128/61 (83) Pulse Ox 100 97 98 O2 Delivery Room Air Room Air Room Air Room Air Intake and Output 7/24/20 7/24/20 7/25/20 15:00 23:00 07:00 Intake Total 450 ml 200 ml 200 ml Balance 450 ml 200 ml 200 ml Justicifation of Admission Dx: Justifications for Admission: Justification of Admission Dx: Yes Stroke - Ischemic: Stroke-Ischemic Altered Mental Status: Altered Mental Status CARRIE TO MD Nov 08, 2019 15:38
[2019-11-08] MEDS: fentaNYL PF VIAL 100 MCG/2 ML VIAL IVP PRN (18:18)
[2019-11-08 18:40] LABS: BASO % 0 % (0-3); EOS % 0 % (0-3); HEMATOCRIT 29.4 % (36.0-47.0); HEMOGLOBIN 9.8 g/dL (12.0-15.5); LYMPH # 0.5 x10^3/uL (1.0-4.8); LYMPH % 5 % (24-48); MEAN CORPUSCULAR HEMOGLOBIN 27 pg (25-35); MEAN CORPUSCULAR HGB CONC 34 g/dL (31-37); MEAN CORPUSCULAR VOLUME 79 fL (79-100); MONO # 0.2 x10^3/uL (0.0-1.1); MONO % 2 % (0-9); NEUT # 9.5 x10^3/uL (1.8-7.7); NEUT % 92 % (31-73); PLATELET COUNT 177 x10^3/uL (140-400); RED CELL DISTRIBUTION WIDTH 17.1 % (11.5-14.5); WHITE BLOOD COUNT 10.3 x10^3/uL (4.0-11.0)
[2019-11-08 19:37] VITALS: BP 137/57
[2019-11-08] MEDS: ATORVASTATIN CALCIUM 40 MG TABLET. PO SCH (20:24)
[2019-11-08 23:01] VITALS: BP 135/59
[2019-11-09 03:11] VITALS: BP 131/58
[2019-11-09 07:00] VITALS: BP 133/53
[2019-11-09 07:05] LABS: BASO % 0 % (0-3); EOS % 0 % (0-3); HEMATOCRIT 27.1 % (36.0-47.0); HEMOGLOBIN 8.9 g/dL (12.0-15.5); LYMPH # 1.3 x10^3/uL (1.0-4.8); LYMPH % 15 % (24-48); MEAN CORPUSCULAR HEMOGLOBIN 26 pg (25-35); MEAN CORPUSCULAR HGB CONC 33 g/dL (31-37); MEAN CORPUSCULAR VOLUME 78 fL (79-100); MONO # 0.6 x10^3/uL (0.0-1.1); MONO % 6 % (0-9); NEUT # 7.1 x10^3/uL (1.8-7.7); NEUT % 78 % (31-73); PLATELET COUNT 171 x10^3/uL (140-400); RED BLOOD COUNT 3.47 x10^6/uL (3.50-5.40); RED CELL DISTRIBUTION WIDTH 17.3 % (11.5-14.5); WHITE BLOOD COUNT 9.1 x10^3/uL (4.0-11.0)
--- NOTE | 2019-11-09 08:07 | PDOC ---
[employer] PROGRESS NOTE Chief Complaint Chief Complaint A/P: Acute CVA - recurrent, appears embolic, however had DMITRI and ILR placed recently, no afib or obvious clots. H/o Acute DVT - s/p inferior vena cava filter placement 08/10/2019, on eliquis BID H/o Postmenopausal bleeding. Appreciate Gynecology consultation and further management per Gynecology. History of Present Illness History of Present Illness Ms Mack is a 59yo F w/ PMHx DVT, diagnosed on 08/04/2019, and subsequent vaginal bleeding s/p IVC filter, and recent CVA on 10/21/2019 who presented to the ER with headaches and weakness and confusion This all started about 7 PM 11/04/2019. Started amitriptyline a couple days ago a nd she thinks she may have had a reaction to that, however did have a recent stroke on October 20 which left her with some right-sided weakness and expressive aphasia. Found on MRI to have Acute right posterior cerebral infarct and evolution of prior left sided frontoparietal infarcts. 11/05: Seen with sister and mother bedside. Able to swallow bedside for me. Unsteady on her feet today, a bit confused and drowsy. 11/06: Significant vaginal bleeding overnight with large bright red clots after increasing Eliquis. Hb to 10.4. She is mentally more alert, weakness still present 11/07: Vaginal bleeding overnight. Hb to 10, Eliquis on 12-hour hold for hysteroscopy with uterine ablation which did not improve bleeding, have discussed with Dr. Bowen Hb 8.9. Afebrile. More alert, weakness is improving speech is improving. Having some suprapubic and vaginal pain today. Still with vaginal bleeding. Plan: Have discussed with gynecology that rn gyn/onc referral to Dr. Johnston at [facility] has been placed. I will coordinate outpatient referral with the less likely necessity of transfer to [facility] for definitive hysterectomy as she will need lifelong anticoagulation and antiplatelet therapy with DVT and CVA x2 in the same 6 month period with continued and recurrent vaginal bleeding with atrophic uterus. As she remains stable but will likely lose 0.5-1g of Hb every few days until treatment she will likely need transfusion prior to d/c. Would give 2 u PRBC if Hb < 8 in AM to keep ahead of her active blood loss, will d/w Heme/Onc if this is the appropriate course of action protein S, protein C, Antithrombin III ordered by Dr. Buitrago, f/u lupus anticoagulant and Neuro, [employer], and Heme/onc recommendations Repeat type and screen, CBC, CMP 11/10/2019 in AM Vitals/I&O Vitals/I&O: Vital Signs Date Time Temp Pulse Resp B/P (MAP) Pulse Ox O2 Delivery O2 Flow Rate FiO2 11/09/19 03:11 98.6 65 16 131/58 (82) 97 Room Air 98.6 11/08/19 13:42 10 I & O0 11/08/19 11/08/19 11/09/19 15:00 23:00 07:00 Intake Total 0 ml 300 ml 400 ml Output Total 0 ml Balance 0 ml 300 ml 400 ml Physical Exam General: Alert, Oriented X3 Heart: Regular rate, No murmurs Lungs: Clear Abdomen: Normal bowel sounds, Soft Extremities: No clubbing, No cyanosis, No edema Skin: No rashes Labs Labs: Laboratory Tests Test 11/08/19 09:10 11/08/19 18:20 11/09/19 06:32 SARS-CoV-2 Antigen (Rapid) Negative (NEGATIVE) White Blood Count 10.3 x10^3/uL (4.0-11.0) 9.1 x10^3/uL (4.0-11.0) Red Blood Count 3.70 x10^6/uL (3.50-5.40) 3.47 x10^6/uL (3.50-5.40) Hemoglobin 9.8 g/dL (12.0-15.5) 8.9 g/dL (12.0-15.5) Hematocrit 29.4 % (36.0-47.0) 27.1 % (36.0-47.0) Mean Corpuscular Volume 79 fL (79-100) 78 fL (79-100) Mean Corpuscular Hemoglobin 27 pg (25-35) 26 pg (25-35) Mean Corpuscular Hemoglobin Concent 34 g/dL (31-37) 33 g/dL (31-37) Red Cell Distribution Width 17.1 % (11.5-14.5) 17.3 % (11.5-14.5) Platelet Count 177 x10^3/uL (140-400) 171 x10^3/uL (140-400) Neutrophils (%) (Auto) 92 % (31-73) 78 % (31-73) Lymphocytes (%) (Auto) 5 % (24-48) 15 % (24-48) Monocytes (%) (Auto) 2 % (0-9) 6 % (0-9) Eosinophils (%) (Auto) 0 % (0-3) 0 % (0-3) Basophils (%) (Auto) 0 % (0-3) 0 % (0-3) Neutrophils # (Auto) 9.5 x10^3/uL (1.8-7.7) 7.1 x10^3/uL (1.8-7.7) Lymphocytes # (Auto) 0.5 x10^3/uL (1.0-4.8) 1.3 x10^3/uL (1.0-4.8) Monocytes # (Auto) 0.2 x10^3/uL (0.0-1.1) 0.6 x10^3/uL (0.0-1.1) Eosinophils # (Auto) 0.0 x10^3/uL (0.0-0.7) 0.0 x10^3/uL (0.0-0.7) Basophils # (Auto) 0.0 x10^3/uL (0.0-0.2) 0.0 x10^3/uL (0.0-0.2) Assessment and Plan Assessmemt and Plan Problems Medical Problems: (1) Expressive aphasia Status: Acute (2) Headache Status: Acute Comment Review of Relevant I have reviewed the following items gloria (where applicable) has been applied. Medications: Current Medications Medications (Trade) Dose Ordered Sig/Willow Route PRN Reason Start Time Stop Time Status Last Admin Dose Admin Acetaminophen/ Hydrocodone Bitart (Lortab 5/325) 1 tab PRN Q6HRS PRN PO PAIN 11/08/19 14:45 11/08/19 14:51 Fentanyl Citrate (Fentanyl 2ml Vial) 50 mcg PRN Q3HRS PRN IVP PAIN 11/08/19 18:00 11/08/19 18:18 Justicifation of Admission Dx: Justifications for Admission: Justification of Admission Dx: Yes Stroke - Ischemic: Stroke-Ischemic Altered Mental Status: Altered Mental Status RIFFEL,CHRISTOPHER S MD Nov 09, 2019 08:07
[2019-11-09] MEDS: ASPIRIN ENTERIC COATED 81 MG TABLET.DR. PO SCH (08:39)
[2019-11-09] MEDS: HYDROcodone/APAP 5/325MG 1 TAB TABLET PO PRN ×2 (08:40→16:10)
[2019-11-09] MEDS: busPIRone 10 MG TABLET. PO SCH ×2 (09:00→20:35)
--- NOTE | 2019-11-09 09:04 | PDOC ---
[employer] PROGRESS NOTE Subjective: Pt with continued bleeding Objective: Vital Signs: Vital Signs Date Time Temp Pulse Resp B/P (MAP) Pulse Ox O2 Delivery O2 Flow Rate FiO2 11/08/19 07:00 98.5 58 18 109/49 (69) 95 Room Air 98.5 11/08/19 13:42 10 Vital Signs Date Time Temp Pulse Resp B/P (MAP) Pulse Ox O2 Delivery O2 Flow Rate FiO2 11/09/19 08:40 19 96 Room Air 11/09/19 07:00 98.6 66 133/53 (79) 98.6 11/08/19 13:42 10 Labs: Laboratory Tests Test 11/08/19 09:10 11/08/19 18:20 11/09/19 06:32 SARS-CoV-2 Antigen (Rapid) Negative (NEGATIVE) White Blood Count 10.3 x10^3/uL (4.0-11.0) 9.1 x10^3/uL (4.0-11.0) Red Blood Count 3.70 x10^6/uL (3.50-5.40) 3.47 x10^6/uL (3.50-5.40) L Hemoglobin 9.8 g/dL (12.0-15.5) L 8.9 g/dL (12.0-15.5) L Hematocrit 29.4 % (36.0-47.0) L 27.1 % (36.0-47.0) L Mean Corpuscular Volume 79 fL (79-100) 78 fL (79-100) L Mean Corpuscular Hemoglobin 27 pg (25-35) 26 pg (25-35) Mean Corpuscular Hemoglobin Concent 34 g/dL (31-37) 33 g/dL (31-37) Red Cell Distribution Width 17.1 % (11.5-14.5) H 17.3 % (11.5-14.5) H Platelet Count 177 x10^3/uL (140-400) 171 x10^3/uL (140-400) Neutrophils (%) (Auto) 92 % (31-73) H 78 % (31-73) H Lymphocytes (%) (Auto) 5 % (24-48) L 15 % (24-48) L Monocytes (%) (Auto) 2 % (0-9) 6 % (0-9) Eosinophils (%) (Auto) 0 % (0-3) 0 % (0-3) Basophils (%) (Auto) 0 % (0-3) 0 % (0-3) Neutrophils # (Auto) 9.5 x10^3/uL (1.8-7.7) H 7.1 x10^3/uL (1.8-7.7) Lymphocytes # (Auto) 0.5 x10^3/uL (1.0-4.8) L 1.3 x10^3/uL (1.0-4.8) Monocytes # (Auto) 0.2 x10^3/uL (0.0-1.1) 0.6 x10^3/uL (0.0-1.1) Eosinophils # (Auto) 0.0 x10^3/uL (0.0-0.7) 0.0 x10^3/uL (0.0-0.7) Basophils # (Auto) 0.0 x10^3/uL (0.0-0.2) 0.0 x10^3/uL (0.0-0.2) Laboratory Tests 11/08/19 18:20 11/09/19 06:32 Laboratory Tests 11/09/19 06:32 Physical Exam: GENERAL: No apparent distress. Alert and oriented. HEENT: Head normocephalic, atraumatic. NECK: Supple LUNGS: Clear to auscultation. HEART: RRR, S1, S2 present, pulses intact ABDOMEN: Soft, positive bowel sounds. EXTREMITIES: No cyanosis or edema. NEUROLOGIC: Normal speech, normal tone PSYCHIATRIC: Normal affect, normal mood. SKIN: No ulceration. Assessment & Plan: A/P: 59y G0 admitted for stroke evaluation 1.) Vaginal bleeding pt with continued leading. Unable to perform ablation most likely due to uterine size being beyond the limits of Novasure. Discussed case with Communications Engineering Technician Onc at [facility] Dr. Johnston. With inablity to stop anticoagulation and continued vaginal bleeding, pt will require hysterectomy. Performing hysterectomy on anticoagulation would safer at a tertiary care center by more skilled surgeon like a Communications Engineering Technician Onc. Pt may benefit from transfer once stable early next wk. Dr. Johnston said she would be willing to perform necessary surgery. 2.) Anemia - still with slow drop in Hgb (~1gm/day), 12.4 -> 10.8 -> 10.0 -> 8.9 3.) Stroke neuro consulted, along with dystonic reaction from the amitriptyline, on Eliquis 4.) H/o DVT on aspirin, Eliquis, gibran in place 5.) Will continue to follow OLAMIDE HOFF MD Nov 09, 2019 09:04
[2019-11-09 10:04] LABS: CREATININE 1.1 mg/dL (0.6-1.0); GFR 50.8; POTASSIUM 4.3 mmol/L (3.5-5.1)
--- NOTE | 2019-11-09 10:05 | OP ---
DATE OF SURGERY: 11/08/2019 PREOPERATIVE DIAGNOSES: 1. Postmenopausal bleeding. 2. Acute stroke. 3. History of deep venous thrombosis. 4. On Eliquis. POSTOPERATIVE DIAGNOSES: 1. Postmenopausal bleeding. 2. Acute stroke. 3. History of deep venous thrombosis. 4. On Eliquis. OPERATION: Hysteroscopy, dilation and curettage with attempted NovaSure ablation. SURGEON: Kobi Hoff MD ANESTHESIA: General endotracheal intubation. ESTIMATED BLOOD LOSS: 300 mL. FINDINGS: Active bleeding with atrophic appearing endometrium. PATHOLOGY: Endometrial curettage. COMPLICATIONS: Unable to activate NovaSure. INDICATIONS: The patient is a 59-year-old G0 who presented to the ER with headache, weakness, confusion and not being able to speak. The patient was found to have an acute stroke. The patient and family also reported that the patient was having vaginal bleeding. At that time, her hemoglobin was found to be 12.4. As her Eliquis was increased to treat her stroke, the patient had increase in vaginal bleeding. Two days later, hemoglobin was obtained returning at 10.8. The following morning, her hemoglobin was obtained and was found to be 10.0. The patient objectively had increased bleeding as well. Due to no medical options being viable, surgical options were discussed with the family. Since the patient was on Eliquis, decision was made to attempt endometrial ablation. Typically alation would not be the ideal option for postmenopausal bleeding, but ablation would have less of a chance to make the bleeding worse. There was also concerns that her endometrial size may be too large for an ablation to be accomplished. DESCRIPTION OF PROCEDURE: The patient was taken to the operating room where general endotracheal intubation was obtained without difficulty. The patient was noted to have a moderate amount of vaginal bleeding. More than is typical with postmenopausal bleeding from atrophic endometrium. The patient was prepped and draped in normal sterile fashion. Speculum was placed in the patient's vagina to visualize the cervix. The anterior lip of the cervix was then grasped with a single tooth tenaculum. The cervix was sufficiently dilated to allow for the hysteroscope. Prior to the hysteroscope, the uterus and cervix were roughly found to be 11 cm. The cervical os was measured to be roughly 2 cm. At that point, the hysteroscope was then placed. Once the scope was placed into the cervix, the endometrium was observed. There were some blood clots noted in the endometrial cavity, but overall the endometrium appeared atrophic consistent with the patient's menopausal status. At that point, the hysteroscope was removed. Curettage was then performed in all 4 quadrants. The specimen was sent to pathology. At that point, the NovaSure device was then placed in the endometrial cavity. It was difficult to reach the fundus of the uterus with the NovaSure device, but once the fundus was reached the NovaSure device was then opened, the length was set to 6.0 and the endometrial width was found to be 4.6 based on the devices sensor. During her admission on July the patient had and ultrasound were the uterine dimensions were found to be 11 by 8 by 7 cm. The NovaSure device was then activated. During the cavity assessment, the device was not getting a sufficient seal to create the vacuum. A second tenaculum was then placed on the posterior lip of the cervix to get a better seal. There was a little bit of a vacuum obtained, but still the NovaSure did not activate. It was unclear if this was due to the uterine size or possibly a perforation. NovaSure device was removed, the hysteroscope was replaced. There did not seem to be any obvious signs of a perforation and even with the irrigation turned off, there were no signs of active bleeding, so the procedure was terminated and the hysteroscope was removed. The tenaculum was removed with minimal bleeding from the tenaculum site. The patient's bleeding was unchanged after the procedure. Good hemostasis was noted at the tenaculum site. The patient was then brought to the recovery room in stable condition. KOBI HOFF MD DR: ELÍAS/olivia JOB#: [id number] / [id number] HEBERT
[2019-11-09] MEDS: APIXABAN 5 MG TABLET. PO SCH ×2 (10:35→20:35)
[2019-11-09 11:00] VITALS: BP 128/59
[2019-11-09] MEDS: ANTI-COAG MONITOR BY PHARMACY. MC PRN (14:38)
[2019-11-09 15:00] VITALS: BP 127/63
--- NOTE | 2019-11-09 17:07 | PDOC ---
PROGRESS NOTES Assessment Problems Medical Problems: (1) Expressive aphasia Status: Acute (2) Headache Status: Acute Acute right posterior cerebral infarct, acute right parietal occipital and posterior temporal infarcts, small focal acute left occipital lobe infarcts, punctate acute left frontal infarct, punctate acute right frontal infarct Possible dystonic reaction from the amitriptyline Prior cryptogenic embolic-type strokes, left frontoparietal and right parietal infarcts LINQ recording negative for afib. 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 Hyperlipidemia, we started statin last time Prior psychiatric disease Possible migraines Vaginal bleeding Hematology consult appreciated, I did send protein S, protein C, Antithrombin III, Dr. Rodriguez ordered lupus anticoagulant Plan Eliquis Gynecology consult, note plans to discharge tomorrow and follow-up with [employer] [facility] custodian Continue aspirin, statin Home rehabilitation Follow-up with me in 4-6 weeks Neurology will follow-up only as needed during the rest of the hospital stay Discussed with mother. Objective Vital Signs Date Time Temp Pulse Resp B/P (MAP) Pulse Ox O2 Delivery O2 Flow Rate FiO2 11/09/19 16:10 19 97 Room Air 11/09/19 15:00 98.1 64 127/63 (84) 98.1 11/08/19 13:42 10 Intake and Output 11/09/19 07:00 Intake Total 700 ml Output Total 0 ml Balance 700 ml Intake Oral 700 ml Output Urine Total 0 ml # Voids 2 PHYSICAL EXAM Expressive aphasia, able to name and repeat PERRL. EOMI. Some visual processing errors, calls my watch a wrist CN: no focal findings. Muscle tone: normal. Muscle strength: 5/5 DTR: 2+ Plantar reflex: flexor Gait: not examined in bed. Sensory exam: no abnormal findings. No cerebellar signs elicited. Review of Relevant I have reviewed the following items gloria (where applicable) has been applied. Labs Laboratory Tests Test 11/08/19 06:51 11/08/19 09:10 11/08/19 18:20 11/09/19 06:32 White Blood Count 6.5 x10^3/uL (4.0-11.0) 10.3 x10^3/uL (4.0-11.0) 9.1 x10^3/uL (4.0-11.0) Red Blood Count 3.92 x10^6/uL (3.50-5.40) 3.70 x10^6/uL (3.50-5.40) 3.47 x10^6/uL (3.50-5.40) Hemoglobin 10.0 g/dL (12.0-15.5) 9.8 g/dL (12.0-15.5) 8.9 g/dL (12.0-15.5) Hematocrit 30.6 % (36.0-47.0) 29.4 % (36.0-47.0) 27.1 % (36.0-47.0) Mean Corpuscular Volume 78 fL (79-100) 79 fL (79-100) 78 fL (79-100) Mean Corpuscular Hemoglobin 26 pg (25-35) 27 pg (25-35) 26 pg (25-35) Mean Corpuscular Hemoglobin Concent 33 g/dL (31-37) 34 g/dL (31-37) 33 g/dL (31-37) Red Cell Distribution Width 17.5 % (11.5-14.5) 17.1 % (11.5-14.5) 17.3 % (11.5-14.5) Platelet Count 177 x10^3/uL (140-400) 177 x10^3/uL (140-400) 171 x10^3/uL (140-400) Neutrophils (%) (Auto) 67 % (31-73) 92 % (31-73) 78 % (31-73) Lymphocytes (%) (Auto) 21 % (24-48) 5 % (24-48) 15 % (24-48) Monocytes (%) (Auto) 8 % (0-9) 2 % (0-9) 6 % (0-9) Eosinophils (%) (Auto) 3 % (0-3) 0 % (0-3) 0 % (0-3) Basophils (%) (Auto) 1 % (0-3) 0 % (0-3) 0 % (0-3) Neutrophils # (Auto) 4.4 x10^3/uL (1.8-7.7) 9.5 x10^3/uL (1.8-7.7) 7.1 x10^3/uL (1.8-7.7) Lymphocytes # (Auto) 1.4 x10^3/uL (1.0-4.8) 0.5 x10^3/uL (1.0-4.8) 1.3 x10^3/uL (1.0-4.8) Monocytes # (Auto) 0.5 x10^3/uL (0.0-1.1) 0.2 x10^3/uL (0.0-1.1) 0.6 x10^3/uL (0.0-1.1) Eosinophils # (Auto) 0.2 x10^3/uL (0.0-0.7) 0.0 x10^3/uL (0.0-0.7) 0.0 x10^3/uL (0.0-0.7) Basophils # (Auto) 0.1 x10^3/uL (0.0-0.2) 0.0 x10^3/uL (0.0-0.2) 0.0 x10^3/uL (0.0-0.2) Sodium Level 139 mmol/L (136-145) 140 mmol/L (136-145) Potassium Level 3.8 mmol/L (3.5-5.1) 4.3 mmol/L (3.5-5.1) Chloride Level 103 mmol/L (98-107) 104 mmol/L (98-107) Carbon Dioxide Level 26 mmol/L (21-32) 26 mmol/L (21-32) Anion Gap 10 (6-14) 10 (6-14) Blood Urea Nitrogen 14 mg/dL (7-20) 15 mg/dL (7-20) Creatinine 1.1 mg/dL (0.6-1.0) 1.1 mg/dL (0.6-1.0) Estimated GFR (Cockcroft-Gault) 50.8 50.8 Glucose Level 97 mg/dL (70-99) 93 mg/dL (70-99) Calcium Level 8.7 mg/dL (8.5-10.1) 9.0 mg/dL (8.5-10.1) Iron Level 22 ug/dL (50-170) Total Iron Binding Capacity 300 ug/dL (250-450) Iron Saturation 7 % (15-34) SARS-CoV-2 Antigen (Rapid) Negative (NEGATIVE) Laboratory Tests Test 11/08/19 18:20 11/09/19 06:32 White Blood Count 10.3 x10^3/uL (4.0-11.0) 9.1 x10^3/uL (4.0-11.0) Red Blood Count 3.70 x10^6/uL (3.50-5.40) 3.47 x10^6/uL (3.50-5.40) Hemoglobin 9.8 g/dL (12.0-15.5) 8.9 g/dL (12.0-15.5) Hematocrit 29.4 % (36.0-47.0) 27.1 % (36.0-47.0) Mean Corpuscular Volume 79 fL (79-100) 78 fL (79-100) Mean Corpuscular Hemoglobin 27 pg (25-35) 26 pg (25-35) Mean Corpuscular Hemoglobin Concent 34 g/dL (31-37) 33 g/dL (31-37) Red Cell Distribution Width 17.1 % (11.5-14.5) 17.3 % (11.5-14.5) Platelet Count 177 x10^3/uL (140-400) 171 x10^3/uL (140-400) Neutrophils (%) (Auto) 92 % (31-73) 78 % (31-73) Lymphocytes (%) (Auto) 5 % (24-48) 15 % (24-48) Monocytes (%) (Auto) 2 % (0-9) 6 % (0-9) Eosinophils (%) (Auto) 0 % (0-3) 0 % (0-3) Basophils (%) (Auto) 0 % (0-3) 0 % (0-3) Neutrophils # (Auto) 9.5 x10^3/uL (1.8-7.7) 7.1 x10^3/uL (1.8-7.7) Lymphocytes # (Auto) 0.5 x10^3/uL (1.0-4.8) 1.3 x10^3/uL (1.0-4.8) Monocytes # (Auto) 0.2 x10^3/uL (0.0-1.1) 0.6 x10^3/uL (0.0-1.1) Eosinophils # (Auto) 0.0 x10^3/uL (0.0-0.7) 0.0 x10^3/uL (0.0-0.7) Basophils # (Auto) 0.0 x10^3/uL (0.0-0.2) 0.0 x10^3/uL (0.0-0.2) Sodium Level 140 mmol/L (136-145) Potassium Level 4.3 mmol/L (3.5-5.1) Chloride Level 104 mmol/L (98-107) Carbon Dioxide Level 26 mmol/L (21-32) Anion Gap 10 (6-14) Blood Urea Nitrogen 15 mg/dL (7-20) Creatinine 1.1 mg/dL (0.6-1.0) Estimated GFR (Cockcroft-Gault) 50.8 Glucose Level 93 mg/dL (70-99) Calcium Level 9.0 mg/dL (8.5-10.1) Microbiology 11/05/19 Urine Culture - Final, Complete Medications Current Medications Benztropine Mesylate (Cogentin) 2 mg 1X STAT IM Last administered on 11/05/19at 08:26; Start 11/05/19 at 07:54; Stop 11/05/19 at 07:58; Status DC Ondansetron HCl (Zofran) 4 mg PRN Q8HRS PRN IV NAUSEA/VOMITING; Start 11/05/19 at 08:00; Stop 11/06/19 at 07:59; Status DC Acetaminophen (Tylenol) 650 mg PRN Q6HRS PRN PO TEMP > 100.4F Last administered on 11/07/19at 18:10; Start 11/05/19 at 09:00 Acetaminophen (Tylenol Supp) 650 mg PRN Q4HRS PRN IA TEMP > 100.4F; Start at 09:00 Apixaban (Eliquis) 2.5 mg BID PO Last administered on 11/06/19at 09:49; Start 11/05/19 at 21:00; Stop 11/06/19 at 10:03; Status DC Buspirone HCl (Buspar) 10 mg BID PO Last administered on 11/06/19at 21:17; Start 11/05/19 at 21:00 Atorvastatin Calcium (Lipitor) 80 mg QHS PO Last administered on 11/08/19at 20:24; Start 11/05/19 at 21:00 Aspirin (Ecotrin) 81 mg [id number] PO Last administered on 11/09/19at 08:39; Start 11/06/19 at 08:00 Hydralazine HCl (Apresoline Inj) 10 mg PRN Q4HRS PRN IVP ELEVATED BP, SEE COMMENTS; Start 11/05/19 at 14:45 Amino Acids/ Glycerin/ Electrolytes 1,000 ml @ 75 mls/hr [id number] IV Last a dministered on 11/06/19at 08:36; Start 11/05/19 at 17:45; Stop 11/06/19 at 14:00; Status DC Apixaban (Eliquis) 5 mg BID PO Last administered on 11/07/19at 20:38; Start 11/06/19 at 21:00; Stop 11/08/19 at 08:42; Status DC Apixaban (Eliquis) 2.5 mg 1X ONCE PO Last administered on 11/06/19at 11:23; Start 11/06/19 at 10:00; Stop 11/06/19 at 10:14; Status DC Info (Anti-Coagulation Monitoring By Pharmacy) 1 each PRN DAILY PRN MC SEE COMMENTS Last administered on 11/09/19at 14:38; Start 11/06/19 at 10:15 Olanzapine (ZyPREXA ZYDIS) 5 mg PRN BID PRN PO ANXIETY / AGITATION Last administered on 11/07/19at 20:38; Start 11/06/19 at 17:30 Simethicone (Gas-X) 80 mg PRN QID PRN PO GAS / BLOATING Last administered on 11/07/19at 13:48; Start 11/07/19 at 13:30 Apixaban (Eliquis) 5 mg BID PO ; Start 11/08/19 at 08:42; Stop 11/08/19 at 09:07; Status DC Ondansetron HCl (Zofran) 4 mg PRN Q6HRS PRN IV NAUSEA/VOMITING; Start 11/08/19 at 10:30; Stop 11/08/19 at 15:48; Status DC Fentanyl Citrate (Fentanyl 2ml Vial) 25 mcg PRN Q5MIN PRN IV MILD PAIN 1-3; Start 11/08/19 at 10:30; Stop 11/08/19 at 15:48; Status DC Fentanyl Citrate (Fentanyl 2ml Vial) 50 mcg PRN Q5MIN PRN IV MODERATE TO SEVERE PAIN; Start 11/08/19 at 10:30; Stop 11/08/19 at 15:48; Status DC Morphine Sulfate (Morphine Sulfate) 1 mg PRN Q10MIN PRN IV SEVERE PAIN 7-10; Start 11/08/19 at 10:30; Stop 11/08/19 at 15:48; Status DC Ringer's Solution 1,000 ml @ 30 mls/hr Q24H IV ; Start 11/08/19 at 10:16; Stop 11/08/19 at 15:48; Status DC Hydromorphone HCl (Dilaudid) 0.5 mg PRN Q10MIN PRN IV SEV PAIN, Second choice; Start 11/08/19 at 10:30; Stop 11/08/19 at 15:48; Status DC Propofol (Diprivan) 200 mg STK-MED ONCE IV ; Start 11/08/19 at 10:36; Stop 11/08/19 at 10:36; Status DC Lidocaine HCl (Lidocaine Pf 2% Vial) 5 ml STK-MED ONCE .ROUTE ; Start 11/08/19 at 10:36; Stop 11/08/19 at 10:36; Status DC Ondansetron HCl (Zofran) 4 mg STK-MED ONCE .ROUTE ; Start 11/08/19 at 10:36; Stop 11/08/19 at 10:36; Status DC Dexamethasone Sodium Phosphate (Decadron) 4 mg STK-MED ONCE .ROUTE ; Start 11/08/19 at 10:36; Stop 11/08/19 at 10:36; Status DC Fentanyl Citrate (Fentanyl 2ml Vial) 100 mcg STK-MED ONCE .ROUTE ; Start 11/08/19 at 10:38; Stop 11/08/19 at 10:38; Status DC Fentanyl Citrate (Fentanyl 2ml Vial) 50 mcg PRN Q3HRS PRN IVP PAIN; Start 11/08/19 at 14:45; Stop 11/08/19 at 15:48; Status DC Acetaminophen/ Hydrocodone Bitart (Lortab 5/325) 1 tab PRN Q6HRS PRN PO PAIN Last administered on 11/09/19at 16:10; Start 11/08/19 at 14:45 Fentanyl Citrate (Fentanyl 2ml Vial) 50 mcg PRN Q3HRS PRN IVP PAIN Last administered on 11/08/19at 18:18; Start 11/08/19 at 18:00 Apixaban (Eliquis) 5 mg BID PO Last administered on 11/09/19at 10:35; Start 11/09/19 at 09:30 Active Scripts Active Reported Midnite Chewable Tablet (Melatonin/Herbal No.233) 1 Each Tb.chw.dsp 1 Each PO HS Buspirone Hcl 10 Mg Tablet 1 Tab PO BID Eliquis (Apixaban) 2.5 Mg Tablet 2.5 Mg PO BID Vitals/I & O Vital Sign - Last 24 Hours 11/08/19 11/08/19 11/08/19 11/08/19 18:18 18:48 19:35 19:37 Temp 98.0 98.0 Pulse 61 Resp 18 B/P (MAP) 137/57 (83) Pulse Ox 95 O2 Delivery Room Air Room Air Room Air Room Air 11/08/19 11/09/19 11/09/19 11/09/19 23:01 03:11 07:00 08:00 Temp 99.4 98.6 98.6 99.4 98.6 98.6 Pulse 65 65 66 Resp 14 16 18 B/P (MAP) 135/59 (84) 131/58 (82) 133/53 (79) Pulse Ox 96 97 96 O2 Delivery Room Air Room Air Room Air Room Air 11/09/19 11/09/19 11/09/19 11/09/19 08:40 09:40 11:00 15:00 Temp 98.2 98.1 98.2 98.1 Pulse 60 64 Resp 19 19 18 18 B/P (MAP) 128/59 (82) 127/63 (84) Pulse Ox 96 96 98 97 O2 Delivery Room Air Room Air Room Air Room Air 11/09/19 16:10 Resp 19 Pulse Ox 97 O2 Delivery Room Air Intake and Output 11/08/19 11/08/19 11/09/19 15:00 23:00 07:00 Intake Total 0 ml 300 ml 400 ml Output Total 0 ml Balance 0 ml 300 ml 400 ml Justicifation of Admission Dx: Justifications for Admission: Justification of Admission Dx: Yes Stroke - Ischemic: Stroke-Ischemic Altered Mental Status: Altered Mental Status CARRIE TO MD Nov 09, 2019 17:07
[2019-11-09 19:00] VITALS: BP 146/57
[2019-11-09] MEDS: ATORVASTATIN CALCIUM 40 MG TABLET. PO SCH (20:35)
[2019-11-09 23:03] VITALS: BP_SYST 45
[2019-11-10 03:00] VITALS: BP 123/56
[2019-11-10 06:32] LABS: BASO # 0.1 x10^3/uL (0.0-0.2); BASO % 1 % (0-3); EOS # 0.2 x10^3/uL (0.0-0.7); EOS % 2 % (0-3); HEMATOCRIT 27.5 % (36.0-47.0); HEMOGLOBIN 8.9 g/dL (12.0-15.5); LYMPH # 1.9 x10^3/uL (1.0-4.8); LYMPH % 21 % (24-48); MEAN CORPUSCULAR HEMOGLOBIN 26 pg (25-35); MEAN CORPUSCULAR HGB CONC 32 g/dL (31-37); MEAN CORPUSCULAR VOLUME 79 fL (79-100); MONO # 0.6 x10^3/uL (0.0-1.1); MONO % 7 % (0-9); NEUT # 6.1 x10^3/uL (1.8-7.7); NEUT % 69 % (31-73); PLATELET COUNT 201 x10^3/uL (140-400); RED BLOOD COUNT 3.48 x10^6/uL (3.50-5.40); RED CELL DISTRIBUTION WIDTH 17.5 % (11.5-14.5); WHITE BLOOD COUNT 8.8 x10^3/uL (4.0-11.0)
[2019-11-10 07:25] VITALS: BP 136/64
[2019-11-10] MEDS: ASPIRIN ENTERIC COATED 81 MG TABLET.DR. PO SCH (08:37)
[2019-11-10] MEDS: APIXABAN 5 MG TABLET. PO SCH (08:37)
[2019-11-10] MEDS: busPIRone 10 MG TABLET. PO SCH (08:37)
[2019-11-10] MEDS: fentaNYL PF VIAL 100 MCG/2 ML VIAL IVP PRN (08:40)
--- NOTE | 2019-11-10 10:13 | NUR ---
SW following. Discussed with RN, pt discharging home today with self care and family care. From chart note, pt will follow up with Dr. Johnston, staff assistant onc at [facility]. SW will continue to follow should any discharge planning needs arise.
--- NOTE | 2019-11-10 10:42 | PDOC ---
DEICER REPAIRER PROGRESS NOTE Subjective: Bleeding objectively less. Objective: Vital Signs: Vital Signs Date Time Temp Pulse Resp B/P (MAP) Pulse Ox O2 Delivery O2 Flow Rate FiO2 11/09/19 07:00 98.6 66 18 133/53 (79) 96 Room Air 98.6 Vital Signs Date Time Temp Pulse Resp B/P (MAP) Pulse Ox O2 Delivery O2 Flow Rate FiO2 11/10/19 08:40 16 Room Air 11/10/19 03:00 98.2 60 123/56 (78) 98 98.2 Labs: Laboratory Tests Test 11/10/19 05:55 White Blood Count 8.8 x10^3/uL (4.0-11.0) Red Blood Count 3.48 x10^6/uL (3.50-5.40) L Hemoglobin 8.9 g/dL (12.0-15.5) L Hematocrit 27.5 % (36.0-47.0) L Mean Corpuscular Volume 79 fL (79-100) Mean Corpuscular Hemoglobin 26 pg (25-35) Mean Corpuscular Hemoglobin Concent 32 g/dL (31-37) Red Cell Distribution Width 17.5 % (11.5-14.5) H Platelet Count 201 x10^3/uL (140-400) Neutrophils (%) (Auto) 69 % (31-73) Lymphocytes (%) (Auto) 21 % (24-48) L Monocytes (%) (Auto) 7 % (0-9) Eosinophils (%) (Auto) 2 % (0-3) Basophils (%) (Auto) 1 % (0-3) Neutrophils # (Auto) 6.1 x10^3/uL (1.8-7.7) Lymphocytes # (Auto) 1.9 x10^3/uL (1.0-4.8) Monocytes # (Auto) 0.6 x10^3/uL (0.0-1.1) Eosinophils # (Auto) 0.2 x10^3/uL (0.0-0.7) Basophils # (Auto) 0.1 x10^3/uL (0.0-0.2) Laboratory Tests 11/10/19 05:55 Laboratory Tests 11/10/19 05:55 Physical Exam: GENERAL: No apparent distress. Alert and oriented. HEENT: Head normocephalic, atraumatic. NECK: Supple LUNGS: Clear to auscultation. HEART: RRR, S1, S2 present, pulses intact ABDOMEN: Soft, positive bowel sounds. EXTREMITIES: No cyanosis or edema. NEUROLOGIC: Normal speech, normal tone PSYCHIATRIC: Normal affect, normal mood. SKIN: No ulceration. Assessment & Plan: A/P 59y G0 admitted for stroke evaluation 1.) Vaginal bleeding pt with improved bleeding over the night. Discussed outpatient referral to Dr. Johnston for eval and management. Path from D&CV pending 2.) Anemia stable over last 24hrs, 8.9 -> 8.9 , previous days pt with Hgb drop of ~1gm/day 3.) Stroke neuro consulted, along with dystonic reaction from the amitr iptyline, on Eliquis 4.) H/o DVT on aspirin, Eliquis, gibran in place 5.) Appt with Dr. Johnston made for 11/12 at 1:00 pm OLAMIDE HOFF MD Nov 10, 2019 10:42
[2019-11-10 11:00] VITALS: BP 167/77
--- NOTE | 2019-11-10 11:43 | PDOC3 ---
Discharge Summary Visit Information Date of Admission: Nov 05, 2019 Date of Discharge: Nov 10, 2019 Admitting Diagnosis Comment: Assessment/Plan Stroke symptoms Final Diagnosis Problems Medical Problems: (1) Expressive aphasia Status: Acute (2) Headache Status: Acute Acute CVA - recurrent, appears embolic, however had DMITRI and ILR placed recently, no afib or obvious clots. H/o Acute DVT - s/p inferior vena cava filter placement 08/10/2019, on eliquis BID H/o Postmenopausal bleeding. Appreciate Gynecology consultation and further management per Gynecology. Brief Hospital Course Allergies Allergies Coded Allergies Type Severity Reaction Last Updated Verified No Known Drug Allergies 08/12/19 No Vital Signs Vital Signs Date Time Temp Pulse Resp B/P (MAP) Pulse Ox O2 Delivery O2 Flow Rate FiO2 11/10/19 09:10 16 Room Air 11/10/19 03:00 98.2 60 123/56 (78) 98 98.2 Lab Results Laboratory Tests Test 11/08/19 18:20 11/09/19 06:32 11/10/19 05:55 White Blood Count 10.3 x10^3/uL (4.0-11.0) 9.1 x10^3/uL (4.0-11.0) 8.8 x10^3/uL (4.0-11.0) Red Blood Count 3.70 x10^6/uL (3.50-5.40) 3.47 x10^6/uL (3.50-5.40) 3.48 x10^6/uL (3.50-5.40) Hemoglobin 9.8 g/dL (12.0-15.5) 8.9 g/dL (12.0-15.5) 8.9 g/dL (12.0-15.5) Hematocrit 29.4 % (36.0-47.0) 27.1 % (36.0-47.0) 27.5 % (36.0-47.0) Mean Corpuscular Volume 79 fL (79-100) 78 fL (79-100) 79 fL (79-100) Mean Corpuscular Hemoglobin 27 pg (25-35) 26 pg (25-35) 26 pg (25-35) Mean Corpuscular Hemoglobin Concent 34 g/dL (31-37) 33 g/dL (31-37) 32 g/dL (31-37) Red Cell Distribution Width 17.1 % (11.5-14.5) 17.3 % (11.5-14.5) 17.5 % (11.5-14.5) Platelet Count 177 x10^3/uL (140-400) 171 x10^3/uL (140-400) 201 x10^3/uL (140-400) Neutrophils (%) (Auto) 92 % (31-73) 78 % (31-73) 69 % (31-73) Lymphocytes (%) (Auto) 5 % (24-48) 15 % (24-48) 21 % (24-48) Monocytes (%) (Auto) 2 % (0-9) 6 % (0-9) 7 % (0-9) Eosinophils (%) (Auto) 0 % (0-3) 0 % (0-3) 2 % (0-3) Basophils (%) (Auto) 0 % (0-3) 0 % (0-3) 1 % (0-3) Neutrophils # (Auto) 9.5 x10^3/uL (1.8-7.7) 7.1 x10^3/uL (1.8-7.7) 6.1 x10^3/uL (1.8-7.7) Lymphocytes # (Auto) 0.5 x10^3/uL (1.0-4.8) 1.3 x10^3/uL (1.0-4.8) 1.9 x10^3/uL (1.0-4.8) Monocytes # (Auto) 0.2 x10^3/uL (0.0-1.1) 0.6 x10^3/uL (0.0-1.1) 0.6 x10^3/uL (0.0-1.1) Eosinophils # (Auto) 0.0 x10^3/uL (0.0-0.7) 0.0 x10^3/uL (0.0-0.7) 0.2 x10^3/uL (0.0-0.7) Basophils # (Auto) 0.0 x10^3/uL (0.0-0.2) 0.0 x10^3/uL (0.0-0.2) 0.1 x10^3/uL (0.0-0.2) Sodium Level 140 mmol/L (136-145) Potassium Level 4.3 mmol/L (3.5-5.1) Chloride Level 104 mmol/L (98-107) Carbon Dioxide Level 26 mmol/L (21-32) Anion Gap 10 (6-14) Blood Urea Nitrogen 15 mg/dL (7-20) Creatinine 1.1 mg/dL (0.6-1.0) Estimated GFR (Cockcroft-Gault) 50.8 Glucose Level 93 mg/dL (70-99) Calcium Level 9.0 mg/dL (8.5-10.1) Laboratory Tests Test 11/10/19 05:55 White Blood Count 8.8 x10^3/uL (4.0-11.0) Red Blood Count 3.48 x10^6/uL (3.50-5.40) Hemoglobin 8.9 g/dL (12.0-15.5) Hematocrit 27.5 % (36.0-47.0) Mean Corpuscular Volume 79 fL (79-100) Mean Corpuscular Hemoglobin 26 pg (25-35) Mean Corpuscular Hemoglobin Concent 32 g/dL (31-37) Red Cell Distribution Width 17.5 % (11.5-14.5) Platelet Count 201 x10^3/uL (140-400) Neutrophils (%) (Auto) 69 % (31-73) Lymphocytes (%) (Auto) 21 % (24-48) Monocytes (%) (Auto) 7 % (0-9) Eosinophils (%) (Auto) 2 % (0-3) Basophils (%) (Auto) 1 % (0-3) Neutrophils # (Auto) 6.1 x10^3/uL (1.8-7.7) Lymphocytes # (Auto) 1.9 x10^3/uL (1.0-4.8) Monocytes # (Auto) 0.6 x10^3/uL (0.0-1.1) Eosinophils # (Auto) 0.2 x10^3/uL (0.0-0.7) Basophils # (Auto) 0.1 x10^3/uL (0.0-0.2) Brief Hospital Course History of Present Illness Ms Mack is a 59yo F w/ PMHx DVT, diagnosed on 08/04/2019, and subsequent vaginal bleeding s/p IVC filter, and recent CVA on 10/21/2019 who presented to the ER with headaches and weakness and confusion This all started about 7 PM 11/04/2019. Started amitriptyline a couple days ago and she thinks she may have had a reaction to that, however did have a recent stroke on October 20 which left her with some right-sided weakness and expressive aphasia. Found on MRI to have Acute right posterior cerebral infarct and evolution of prior left sided frontoparietal infarcts. 11/05: Seen with sister and mother bedside. Able to swallow bedside for me. Unsteady on her feet today, a bit confused and drowsy. 11/06: Significant vaginal bleeding overnight with large bright red clots after increasing Eliquis. Hb to 10.4. She is mentally more alert, weakness still present 11/07: Vaginal bleeding overnight. Hb to 10, Eliquis on 12-hour hold for hysteroscopy with uterine ablation which did not improve bleeding, have discussed with Dr. Bowen 11/08: Hb 8.9. Afebrile. More alert, weakness is improving speech is improving. Having some suprapubic and vaginal pain today. Still with vaginal bleeding. 11/09: Patient with stable hemoglobin and symptoms, the patient was able to ambulate throughout the halls, plan of care and discharge planning was discussed with family members at bedside. Signs and symptoms of alarm and when to seek medical attention were discussed prior to dismissal, I have also discussed the case with TREE PLANTER new vehicle sales consultant who will call Dr. Lafleur at [facility] for follow-up. Plan: Have discussed with gynecology that crimping press operator/onc referral to Dr. Johnston at [facility] has been placed. She will certainly need definitive hysterectomy as she will need lifelong anticoagulation and antiplatelet therapy with DVT and CVA x2 in the same 6 month period with continued and recurrent vaginal bleeding with atrophic uterus. As she remains stable but will likely lose 0.5-1g of Hb every few days until treatment she will likely need transfusion prior to d/c. Would give 2 u PRBC if Hb < 8 in AM to keep ahead of her active blood loss but not required at the present time protein S, protein C, Antithrombin III ordered by Dr. Buitrago, f/u lupus anticoagulant and Neuro, Folder Stitcher Operator, and Heme/onc recommendations Repeat type and screen, CBC, CMP noted she can be discharged and follow up with TREE PLANTER onc at [facility] Discharge Information Condition at Discharge: Improved Follow Up: Weeks Disposition/Orders: D/C to Home Scheduled Apixaban (Eliquis) 2.5 Mg Tablet, 2.5 MG PO BID for DVT, (Reported) Entered as Reported by: JASON ACOSTA on 10/21/193 Last Action: Continued on 11/05/191214 by Saran Buitrago Buspirone Hcl (Buspirone Hcl) 10 Mg Tablet, 1 TAB PO BID for anxiety, #60 Ref 1 (Reported) Entered as Reported by: JASON ACOSTA on 10/21/193 Last Action: Continued on 11/05/191214 by Saran Buitrago Melatonin/Herbal No.233 (Midnite Chewable Tablet) 1 Each Tb.chw.dsp, 1 EACH PO HS for sleep, (Reported) Entered as Reported by: JASON ACOSTA on 10/21/193 Last Action: HELD on 11/05/191214 by Saran Buitrago Justicifation of Admission Dx: Justifications for Admission: Justification of Admission Dx: Yes Stroke - Ischemic: Stroke-Ischemic Altered Mental Status: Altered Mental Status BRADLY WALTERS MD Nov 10, 2019 11:43
[2019-11-10] MEDS ORDERED: ASPI-886 PO (11:46)
[2019-11-10] MEDS ORDERED: APIX5TAB PO (11:46)
[2019-11-10] MEDS ORDERED: ATOR40TA59 PO (11:46)
[2019-11-10] MEDS ORDERED: OLAN5TAB7 PO (11:46)
--- NOTE | 2019-11-10 15:53 | NUR ---
Discharge Note: PHILIP YOU Discharge instructions and discharge home medications reviewed with Patient and a copy given. All questions have been answered and understanding verbalized. The following instructions and handouts were given: DISCHARGE INSTRUCTION Discontinued lines and drains: CATHETER TIP intact. PATIENT TOLERATED WELL. Patient discharged to HOME WITH FAMILY VIA PERSONAL VEHICLE.
--- NOTE | 2019-11-13 17:06 | PATHOLOGY ---
[facility] Accession Number: [id number] . 01 Material submitted: . endometrium - ENDOMETRIAL CURETTINGS . 01 Clinical history: . Vaginal bleeding . 02 Diagnosis: Endometrial curettings: - Blood containing few small fragments of endometrium showing at least complex atypical endometrial hyperplasia. See comment. (JPM:leopoldo; 11/13/2019) S 11/13/2019 1123 Local . 02 Comment: Sections of the endometrial curettings reveal blood containing few small segments of endometrium showing crowded endometrial glands lined by atypical columnar cells with focal squamous differentiation. The findings represent at least complex atypical endometrial hyperplasia. We cannot rule out an endometrioid adenocarcinoma. The specimen also contains scant segments of benign endocervical epithelium and squamous epithelium and a few small segments of endocervical mucosa showing chronic inflammation. The case is also examined by Dr. Leon and Dr. Pollard, both of whom have specialty interest in Administrative Assistant Receptionist pathology. They concur with the diagnosis. (JPM:leopoldo; 11/13/2019) . 02 Electronically signed: . Saran Brunner MD, Pathologist NPI- [id number] . 01 Gross description: . Received in formalin labeled "MackShari, endometrial curettings" is blood clot and soft ba-brown tissue measuring 2.4 x 1.6 x 0.5 cm which is entirely submitted in A1.(SDY; 11/10/2019) SYU/SYU 11/10/2019 1833 Local . 02 Pathologist provided ICD-10: N85.02 . 02 CPT . 860013 Specimen Comment: A courtesy copy of this report has been sent to [phone], [phone] Specimen Comment: [id number], Specimen Comment: Report sent to ,DR DIAZ / DR DURHAM Performed at: [address] [facility] [address], [place], [place] [id number] MD Ronny Iraheta MD Phone: [phone] Performed at: 02 [facility] [address] [place], [place] [id number] MD Saran Brunner MD Phone: [phone]
== END 2019-11-10 16:03 | disposition home or self-care (01) | DRG 744 ==
LOC: ER 05:25 → ED HOLD 08:00 → 5 NORTH 08:34 → OBSVTOIN 11-06 13:14
PROVIDERS: ADMIT Internal Medicine; ATTEND Internal Medicine
PROC: 0UDB8ZZ Extraction of Endometrium, Via Natural or Artificial Opening Endoscopic (ICD-10-PCS; principal; 2019-11-08 12:00)
DX: N95.0 Postmenopausal bleeding (principal); I63.9 Cerebral infarction, unspecified; G93.40 Encephalopathy, unspecified; Z68.41 Body mass index [BMI] 40.0-44.9, adult; N39.0 Urinary tract infection, site not specified; I69.351 Hemiplegia and hemiparesis following cerebral infarction affecting right dominant side; R47.01 Aphasia; D25.9 Leiomyoma of uterus, unspecified; D64.9 Anemia, unspecified; E66.01 Morbid (severe) obesity due to excess calories; E78.00 Pure hypercholesterolemia, unspecified; E78.5 Hyperlipidemia, unspecified; I16.0 Hypertensive urgency; N97.0 Female infertility associated with anovulation; R93.89 Abnormal findings on diagnostic imaging of other specified body structures; Z78.0 Asymptomatic menopausal state; Z79.01 Long term (current) use of anticoagulants; Z79.82 Long term (current) use of aspirin; Z82.3 Family history of stroke; Z82.49 Family history of ischemic heart disease and other diseases of the circulatory system; Z86.718 Personal history of other venous thrombosis and embolism; Z90.710 Acquired absence of both cervix and uterus; Z95.828 Presence of other vascular implants and grafts; F32.9 Major depressive disorder, single episode, unspecified; F41.9 Anxiety disorder, unspecified; M19.90 Unspecified osteoarthritis, unspecified site; Z20.828 Contact with and (suspected) exposure to other viral communicable diseases
CPT/HCPCS: 36415; 70450; 70551; 71045; 80048; 80053; 80307; 81001; 82140; 83540; 83550; 83735; 85025; 85300; 85302; 85306; 85610; 86038; 86850; 86900; 86901; 86920; 87086; 87426; 88305; 93005; 96372; 99285; G0378; G0379; G0480; J0515; J1100; J2405; J2704; J3010; J3490; J7030; 92610-GN; 97110-GP; 97116-GP; 97530-GO; 97530-GP; 97535-GO; U0003-CS

== ENCOUNTER 2019-11-12 17:15 | Emergency (ER) | payer SELFPAY ==
[~2019-11-12] VITALS: Ht 160 cm; Wt 101.0 kg
[~2019-11-12 17:15] MED LIST changes: +APIX5TAB PO; +ASPI-612 PO; +ATOR40TA59 PO; +OLAN5TAB7 PO
--- NOTE | 2019-11-12 19:10 | PHYS DOC ---
Past Medical History Past Medical History: Anemia, Anxiety, High Cholesterol, Stroke, Other Additional Past Medical Histor: leg blood clots, blood thinners, vag bleeding Past Surgical History: No Surgical History, Other Additional Past Surgical Histo: DNC Smoking Status: Never Smoker Alcohol Use: None General Adult EDM: Chief Complaint: VAGINAL BLEEDING HPI: HPI: Patient is a 59 year old female presents to the emergency department today stating that she was discharged from here 2 days ago with a low hemoglobin, has a history of uterine fibroids and needs to have her uterus removed via surgery. Was told that she cannot have that surgery done here at this hospital, has a appointment tomorrow morning with SPORTS EQUIPMENT RACKER Dr. Perez at [facility] to have her uterus removed. Patient states that she came here today because she was still passing clots and she feared that her hemoglobin was even lower than when she was discharged. Patient states that she believes her hemoglobin was 8.6 when she was discharged, patient states that she does not have any specific symptoms, but does fears that her blood is so low that she might . Patient denies any fever or chills, denies any exposure to the COVID-19 virus or concerns of having the COVID-19 virus, states that she does not wish to be tested for it. Patient denies any congestion or cough or shortness of breath. She denies any chest pain or swelling of her extremities. She denies any abdominal pains, nausea, vomiting, diarrhea, or constipation. Has any problems urinating. Patient denies any back pain or pain in her joints is any rash. Patient does however state that she has been passing blood clots vaginally, but does not have any symptoms associated with it. Patient denies any swelling of her glands any depressions anxieties homicidal or suicidal ideation. Patient states that she had a stroke in the past and has some expressive aphasia. Patient is in the room with her friend and her mother. Patient's mother states that she does some ADL care for her at home related to her CVA. Review of Systems: Review of Systems: Constitutional: Denies fever or chills. Denies exposure to the COVID-19 virus. Eyes: Denies change in visual acuity. HENT: Denies nasal congestion or sore throat. Respiratory: Denies cough or shortness of breath. Cardiovascular: Denies chest pain or edema. GI: Denies abdominal pain, nausea, vomiting, constipation or diarrhea. : Denies dysuria. Complains of passing clots vaginally. Musculoskeletal: Denies back pain or joint pain. Integument: Denies rash. Neurologic: Denies headache, focal weakness or sensory changes. Lymphatic: Denies swollen glands. Psychiatric: Denies depression or anxiety. Denies homicidal or suicidal ideation. Heart Score: Risk Factors: Risk Factors: DM, Current or recent (<one month) smoker, HTN, HLP, family history of CAD, obesity. Risk Scores: Score 0 - 3: 2.5% MACE over next 6 weeks - Discharge Home Score 4 - 6: 20.3% MACE over next 6 weeks - Admit for Clinical Observation Score 7 - 10: 72.7% MACE over next 6 weeks - Early Invasive Strategies Allergies: Allergies: Allergies Coded Allergies Type Severity Reaction Last Updated Verified No Known Drug Allergies 08/12/19 No Physical Exam: PE: Constitutional: Well developed, well nourished, no acute distress, non-toxic appearance. HENT: Normocephalic, atraumatic, bilateral external ears normal, oropharynx moist, no oral exudates, nose normal. Eyes: PERRLA, EOMI, conjunctiva normal, no discharge. Neck: Normal range of motion, no tenderness, supple, no stridor. Cardiovascular:Heart rate regular rhythm, no murmur Lungs & Thorax: Bilateral breath sounds clear to auscultation Abdomen: Bowel sounds normal, soft, no tenderness, no masses, no pulsatile masses. Skin: Warm, dry, no erythema, no rash. Back: No tenderness, no CVA tenderness. Extremities: No tenderness, no cyanosis, no clubbing, ROM intact, no edema. Limited active range of motion related to old CVA Neurologic: Alert and oriented X 3, normal motor function, normal sensory function, no focal deficits noted. Patient exhibits expressive aphasia, answers all questions slowly, but appropriately. Psychologic: Affect normal, judgement normal, mood normal. Current Patient Data: Vital Signs: Vital Signs Date Time Temp Pulse Resp B/P (MAP) Pulse Ox O2 Delivery O2 Flow Rate FiO2 11/12/19 17:38 96.9 81 16 174/78 (110) 98 Room Air 96.9 EKG: EKG: [] Radiology/Procedures: Radiology/Procedures: [] Course & Med Decision Making: Course & Med Decision Making Pertinent Labs and Imaging studies reviewed. (See chart for details) This 59-year-old female patient has a history of passing blood clots and anemia reported to the emergency department fearing that her hemoglobin was lower than 8.6 which is what she was discharged yesterday with. Patient has an appointment with SPORTS EQUIPMENT RACKER specialist Dr. Perez tomorrow at [facility] to have a total hysterectomy related to her vaginal bleeding and diagnosis of uterine fibroids. Patient continues to have vaginal bleeding and passing clots. Patient denies any new symptoms. Patient just feared that her hemoglobin was too low and thought she might need to have a blood transfusion. Hemoglobin today drawn in the emergency department was 7.2, consulted SPORTS EQUIPMENT RACKER specialist Dr. Adair who recommended since the patient's vital signs were stable and within normal limits, that the patient be given an IM injection 200 mg Depo-Provera to slow and/or stop the uterine bleeding so that the patient can make her much- needed appointment tomorrow morning at [facility] with SPORTS EQUIPMENT RACKER specialist Dr. Perez. Discussed discharge planning with patient and patient's family, both patient and patient's family were agreeable to the shot and going home with her hemoglobin being 7.2. Patient states that she will return if any symptoms worsen, or if her bleeding worsens. Patient had no further questions or concerns. Vital signs remained within normal limits throughout her ER stay, patient discharged to home. Dragon Disclaimer: Dragon Disclaimer: This electronic medical record was generated, in whole or in part, using a voice recognition dictation system. Departure Departure Impression: Primary Impression: Abnormal uterine bleeding Additional Impressions: Anemia Qualified Codes: D64.89 - Other specified anemias Uterine fibroid Qualified Codes: D25.9 - Leiomyoma of uterus, unspecified Disposition: 01 HOME, SELF-CARE Condition: STABLE Referrals: UNKNOWN PCP NAME (PCP) Patient Instructions: Abnormal Uterine Bleeding, Uterine Bleeding, Dysfunctional, [id number] Additional Instructions: Please keep your appointment with Dr. Perez tomorrow at [facility], return to the emergency department immediately for worsening symptoms or further concerns. Justicifation of Admission Dx: Justifications for Admission: Justification of Admission Dx: Yes Stroke - Ischemic: Stroke-Ischemic Altered Mental Status: Altered Mental Status OLAMIDE HURD APRN Nov 12, 2019 19:09
[2019-11-12] MEDS ORDERED: ONDANSETRON PF 4 MG/2 ML VIAL. IVP ONE (19:15)
[2019-11-12] MEDS ORDERED: IV NORMAL SALINE 1000ML BAG 1,000 ML IV ONE (19:15)
[2019-11-12 19:17] LABS: BASO % 1 % (0-3); EOS # 0.1 x10^3/uL (0.0-0.7); EOS % 1 % (0-3); HEMATOCRIT 22.2 % (36.0-47.0); HEMOGLOBIN 7.2 g/dL (12.0-15.5); LYMPH % 15 % (24-48); MEAN CORPUSCULAR HEMOGLOBIN 25 pg (25-35); MEAN CORPUSCULAR HGB CONC 32 g/dL (31-37); MEAN CORPUSCULAR VOLUME 78 fL (79-100); MONO # 0.6 x10^3/uL (0.0-1.1); MONO % 8 % (0-9); NEUT # 5.1 x10^3/uL (1.8-7.7); NEUT % 75 % (31-73); PLATELET COUNT 191 x10^3/uL (140-400); RED BLOOD COUNT 2.83 x10^6/uL (3.50-5.40); RED CELL DISTRIBUTION WIDTH 17.2 % (11.5-14.5); WHITE BLOOD COUNT 6.8 x10^3/uL (4.0-11.0)
[2019-11-12 19:26] LABS: CALCIUM 9.1 mg/dL (8.5-10.1); CREATININE 1.1 mg/dL (0.6-1.0); GFR 50.8; POTASSIUM 3.9 mmol/L (3.5-5.1)
[2019-11-12 19:32] LABS: ALBUMIN 3.3 g/dL (3.4-5.0); ALBUMIN/GLOBULIN RATIO 1.1 (1.0-1.7); TOTAL BILIRUBIN 0.3 mg/dL (0.2-1.0); TOTAL PROTEIN 6.3 g/dL (6.4-8.2)
[2019-11-12] MEDS ORDERED: medroxyPROGESTERone IM 150 MG/ML VIAL. IM ONE (20:30)
[2019-11-12 22:18] VITALS: BP 128/60
== END 2019-11-12 22:18 | disposition home or self-care (01) ==
LOC: ER 17:15 → UNDOADMOB 19:50 → 5 NORTH 19:50 → ER 22:18
DX: N93.9 Abnormal uterine and vaginal bleeding, unspecified (principal); D64.89 Other specified anemias; D25.9 Leiomyoma of uterus, unspecified; F41.9 Anxiety disorder, unspecified; E78.00 Pure hypercholesterolemia, unspecified; I25.2 Old myocardial infarction; Z90.710 Acquired absence of both cervix and uterus; Z86.73 Personal history of transient ischemic attack (TIA), and cerebral infarction without residual deficits; Z98.890 Other specified postprocedural states
CPT/HCPCS: 36415; 80053; 85025; 96372; 96374; 99285; J1050; J2405; J7030

== ENCOUNTER → 2020-04-13 | Outpatient (CLI) | payer OTHER ==
[~2020-04-13] MED LIST changes: -ASPI-612 PO; +ASPI-886 PO
--- NOTE | 2020-04-13 16:51 | RAD ---
EXAM: Lumbar spine, 2 views. HISTORY: Pain. COMPARISON: None. FINDINGS: 2 views of the lumbar spine are obtained. There is grade 1 anterolisthesis of L4 and L5. Th ere is mild multilevel endplate remodeling. There is facet arthropathy predominantly at the mid lower lumbar levels. There is an incidental IVC filter in expected position. IMPRESSION: 1. Multilevel degenerative change throughout the lumbar spine, described above. 2. Grade 1 anterolisthesis of L4 and L5. 3. No acute osseous finding. Electronically signed by: Jailene Garcia MD (04/13/2020 4:49 PM) [id number]
== END ==
LOC: RAD 11:00
PROVIDERS: ATTEND Surgery
DX: Z02.1 Encounter for pre-employment examination (principal); M47.816 Spondylosis without myelopathy or radiculopathy, lumbar region; M43.16 Spondylolisthesis, lumbar region
CPT/HCPCS: 72100

== ENCOUNTER → 2021-07-01 | Outpatient (CLI) | payer OTHER ==
--- NOTE | 2021-07-01 17:30 | CARD ---
MR#: [id number] Date of Study: 07/01/2021 Ordering Physician: FELICE AGUILAR, Referring Physician: FELICE AGUILAR, Tech: Lázaro Mc [facility] APPROVED REPORT EXAM: Two-dimensional and M-mode echocardiogram with Doppler and color Doppler. Other Information Quality : FairHR: 73bpm Rhythm : NSRTechnically limited study due to body habitus. INDICATION CVA/TIA RISK FACTORS Hypertension Obesity 2D DIMENSIONS Left Atrium(2D)3.7 (1.6-4.0cm)IVSd1.3 (0.7-1.1cm) LVDd3.7 (3.9-5.9cm)LVOT Diameter1.7 (1.8-2.4cm) PWd1.2 (0.7-1.1cm)LA Rslycz65 (18-58mL) LVDs2.1 (2.5-4.0cm)FS (%) 42.5 % SV43.7 mlLVEF(%)74.4 (>50%) Aortic Valve AoV Peak Florencio.197.4cm/sAoV VTI36.4cm AO Peak GR.15.6mmHgLVOT Peak Florencio.129.1cm/s LVOT VTI 27.24cmAO Mean GR.9mmHg MARTINEZ (VMAX)1.17mh3GWD (VTI)1.77cm2 AI P 1/2 Vqad1414re Mitral Valve MV E Zbcrxbma86.3cm/sMV DECEL PLJY205za MV A Iptxksvh51.8cm/sMV ECZ21qc E/A Ratio0.8MVA (PHT)2.36cm2 TDI E/Lateral E'9.5E/Medial E'9.0 Pulmonary Valve PV Peak Zqgoozpl96.9cm/sPV Peak Grad.3mmHg Tricuspid Valve TR P. Ujgnquui664qb/sTR Peak Gr.25mmHg Pulmonary Vein S1 Prlfhysa26.9cm/sD2 Ivjervlo25.0cm/s LEFT VENTRICLE The left ventricle is normal size. There is mild concentric left ventricular hypertrophy. The left ve ntricular systolic function is normal. The ejection fraction is 65-70%. There is normal LV segmental wall motion. Transmitral Doppler flow pattern is Grade I-abnormal relaxation pattern. No left ventric le thrombus noted on this study. There is no ventricular septal defect visualized. There is no left v entricular aneurysm. There is no mass noted in the left ventricle. RIGHT VENTRICLE The right ventricle is normal size. There is normal right ventricular wall thickness. The right ventr icular systolic function is normal. ATRIA The left atrium size is normal. The right atrium size is normal. The interatrial septum is intact wit h no evidence for an atrial septal defect or patent foramen ovale as noted on 2-D or Doppler imaging. AORTIC VALVE The aortic valve is not well seen. Doppler and Color Flow revealed trace aortic regurgitation. There is no significant aortic valvular stenosis. There is no aortic valvular vegetation. MITRAL VALVE The mitral valve is normal in structure and function. There is no evidence of mitral valve prolapse. There is no mitral valve stenosis. Doppler and Color Flow revealed no mitral valve regurgitation note d. TRICUSPID VALVE The tricuspid valve is normal in structure and function. Doppler and Color Flow revealed trace tricus pid regurgitation. There is no tricuspid valve prolapse or vegetation. There is no tricuspid valve st enosis. PULMONIC VALVE The pulmonic valve is not well seen. Doppler and Color Flow revealed no pulmonic valvular regurgitati on. There is no pulmonic valvular stenosis. GREAT VESSELS The aortic root is normal in size. The ascending aorta is normal in size. The pulmonary artery is nor mal. The IVC is normal in size and collapses >50% with inspiration. PERICARDIAL EFFUSION There is no pleural effusion. There is no evidence of significant pericardial effusion. Critical Notification Critical Value: No <Conclusion> The left ventricular systolic function is normal. The ejection fraction is 65-70%. There is normal LV segmental wall motion. Transmitral Doppler flow pattern is Grade I-abnormal relaxation pattern. Trace tricuspid regurgitation. There is no evidence of significant pericardial effusion. Signed by : Dm Hyatt, Electronically Approved : 07/01/2021 17:30:11
== END ==
LOC: ECHO 11:18
PROVIDERS: ATTEND Internal Medicine Cardiovascular Disease
DX: I51.7 Cardiomegaly (principal); I63.9 Cerebral infarction, unspecified
CPT/HCPCS: 93306; C8929